=== PATIENT | female | born 1935 | race Caucasian/White ===

== ENCOUNTER 2017-08-01 17:15 | Emergency (ER) | payer BC, OTHER ==
[~2017-08-01] VITALS: Ht 152.4 cm; Wt 65.0 kg
[~2017-08-01 17:15] MED LIST: ACET-1311 PO; ASPCH81 PO; CHOL100010 PO; CRS10 PO; FRS/40 PO; MCLIN; METO50TA16 PO; OMEG10007 PO
[2017-08-01 17:22] VITALS: TEMP 36.7; Ht 152.4 cm; Wt 65.0 kg
[2017-08-01] MEDS ORDERED: CALC500C70 PO (18:00)
[2017-08-01] MEDS ORDERED: MULT-506 PO (18:00)
[2017-08-01] MEDS ORDERED: METO-217 PO (18:00)
[2017-08-01] MEDS ORDERED: ASPI81TA28 PO (18:00)
[2017-08-01] MEDS ORDERED: CHOL1000 PO (18:00)
--- NOTE | 2017-08-01 18:08 | EMERGENCY ROOM VISIT NOTE ---
ED Visit Note First contact with patient: 17:25 I have personally evaluated this patient examined her and reviewed the pertinent labs and data. I have discussed the case with Denae Rashid, the physician respiratory assistant and agree with the plan. Please refer to the PA note. This patient comes in after suffering a mechanical fall. She Landed on her left knee . She has pain or medial thigh. She has full range of motion the knee and is neurologically and neurovascularly intact . She's had no other complaints. X-rays do not show any fracture . She is mostly worried about her mechanical knee she feels good and like to go home and will be discharged home.
--- NOTE | 2017-08-01 18:37 | DIAGNOSTIC IMAGING REPORT ---
RIGHT KNEE 2 VIEWS HISTORY: fall/knee pain/history knee replacement COMPARISON: None. FINDINGS: No fracture or dislocation. No knee effusion. There is a right total knee arthroplasty. The hardware appears intact. Soft tissues are unremarkable. IMPRESSION: No fractures. Electronically signed by: Tyler Abreu M.D. 08/01/2017 6:36 PM Dictated Date/Time: 08/01/2017 6:32 PM
--- NOTE | 2017-08-01 18:41 | EMERGENCY ROOM VISIT NOTE ---
ED Visit Note First contact with patient: 17:25 CHIEF COMPLAINT: Right Knee injury HISTORY OF PRESENT ILLNESS: This 82-year-old female presents the ER with chief complaint of right knee pain/injury. The patient states today at approximately 1:30 PM she was outside in her slippers and slipped on the freshly plowed area and landed more towards her left side but struck the medial aspect of her right knee on the concrete. The patient states she was able to get up and walk without any difficulty. The patient denies any head injury or any pain on the left side of her body. The patient applied ice immediately. The patient is concerned because she had a knee replacement done many years ago on the knee. She denies any numbness and tingling in the lower extremity. REVIEW OF SYSTEMS: 6 system review was performed and was negative unless stated otherwise in history of present illness. PMH: PAST MEDICAL HISTORY: 1. Cardiac arrhythmias. 2. Hyperlipidemia. 3. Osteoporosis. 4. Osteoarthritis. 5. Chronic venous insufficiency. 6. Vitamin D deficiency. PAST SURGICAL HISTORY: 1. Right total knee replacement in the past. 2. Cholecystectomy. 3. Hysterectomy. 4. Oophorectomy. 5. Appendectomy as a child. 6. Cataract surgery. 7. Laminectomy. 8. Benign breast cysts removal x2. SOCIAL HISTORY: Patient is a . The patient denies any tobacco use but admits to occasional alcohol use. PHYSICAL EXAM: Vital Signs: Were reviewed Reviewed Nurse's notes. GEN.: 82-year -old white female appears in no acute distress. MENTAL STATUS: Alert, oriented , and cooperative. RIGHT KNEE: There is ecchymosis noted over the medial aspect of the knee. There is a vertical scar consistent with prior knee replacement surgery. She is tender to palpation over the medial aspect of the joint space. Lateral aspect is nontender. Full range of motion. No ligament instability noted. The skin is normal and intact. EMERGENCY DEPARTMENT COURSE: The patient was evaluated. The patient was offered pain medication but declined. X-ray of the right knee was ordered interpreted by myself and the radiologist as below. DIAGNOSTICS:RIGHT KNEE 2 VIEWS HISTORY: fall/knee pain/history knee replacement COMPARISON: None. FINDINGS: No fracture or dislocation. No knee effusion. There is a right total knee arthroplasty. The hardware appears intact. Soft tissues are unremarkable. IMPRESSION: No fractures. Electronically signed by: Tyler Abreu M.D. 08/01/2017 6:36 PM Dictated Date/Time: 08/01/2017 6:32 PM The patient was informed of the findings. The patient was independently evaluated by Dr. Sears who agreed with treatment plan. The patient was discharged home in stable condition. DIAGNOSIS: Right Knee contusion DISCHARGE INSTRUCTIONS: Tylenol or ibuprofen as needed for pain. Ice intermittently over the next 24 hours. Keep leg elevated whenever possible over the next 24 hours. Use walker to aid in ambulation until the knee is healed. If symptoms worsen, follow-up with your family doctor for reevaluation. Problem List PAST MEDICAL HISTORY: 1. Cardiac arrhythmias. 2. Hyperlipidemia. 3. Osteoporosis. 4. Osteoarthritis. 5. Chronic venous insufficiency. 6. Vitamin D deficiency. PAST SURGICAL HISTORY: 1. Right total knee replacement in the past. 2. Cholecystectomy. 3. Hysterectomy. 4. Oophorectomy. 5. Appendectomy as a child. 6. Cataract surgery. 7. Laminectomy. 8. Benign breast cysts removal x2. Current/Historical Medications Scheduled Acetaminophen (Tylenol), 650 MG PO Q4HR PRN Aspirin (Aspirin Ec), 81 MG PO QAM Calcium/Vitamin D (Os-Ethan 500 Plus D), 1 TAB PO QAM Cholecalciferol (Vitamin D), 1,000 INTER.UNIT PO QAM Cholecalciferol (Vitamin D3), 1 TAB PO QAM Metoprolol Succinate (Toprol Xl), 50 MG PO BID Multivitamin (Multivitamin), 1 TAB PO QAM Rosuvastatin Calcium (Crestor *), 10 MG PO QAM Scheduled PRN Furosemide (Lasix), 40 MG PO DAILY PRN for WATER RETENTION Allergies Coded Allergies: Sulfa Drugs (Unverified Allergy, Unknown, ., 08/01/17) Sulfamethoxazole w/Trimethoprim (Unverified Allergy, Unknown, ., 08/01/17) Vital Signs Date Time Temp Pulse Resp B/P (MAP) Pulse Ox O2 Delivery O2 Flow Rate FiO2 08/01/17 17:22 36.7 61 16 146/66 97 Room Air Departure Information Referrals No Doctor, Assigned (PCP) Patient Instructions [facility] [place]
[2017-08-01 18:43] VITALS: BP 128/64; PULSE 82; O2SAT 96
== END 2017-08-01 18:45 | disposition home or self-care (01) ==
LOC: C.EDB 17:17 → C.EDD 18:45
DX: S80.01XA Contusion of right knee, initial encounter (principal); W01.198A Fall on same level from slipping, tripping and stumbling with subsequent striking against other object, initial encounter; Z96.651 Presence of right artificial knee joint; M81.0 Age-related osteoporosis without current pathological fracture; E55.9 Vitamin D deficiency, unspecified; E78.5 Hyperlipidemia, unspecified; I87.2 Venous insufficiency (chronic) (peripheral); Z90.49 Acquired absence of other specified parts of digestive tract; Z90.710 Acquired absence of both cervix and uterus; Z90.89 Acquired absence of other organs; Z98.49 Cataract extraction status, unspecified eye; Z90.721 Acquired absence of ovaries, unilateral; Z98.890 Other specified postprocedural states; Z79.82 Long term (current) use of aspirin; Z79.899 Other long term (current) drug therapy

== ENCOUNTER 2018-09-26 11:59 | Inpatient (IN) ==
[2018-09-26] MEDS ORDERED: dilTIAZem HCl 5 MG/ML 5 ML VIAL IV STA (12:40)
[2018-09-26] MEDS ORDERED: dilTIAZem HCl 5 MG/ML 5 ML VIAL IV ONE (12:40)
[2018-09-26 12:51] LABS: Basophils # (auto) 0.01 K/uL (0-0.2); Basophils % (auto) 0.1 %; Eosinophils # (auto) 0.07 K/uL (0-0.5); Eosinophils % (auto) 0.5 %; Hematocrit (blood only) 44.2 % (37-47); Hemoglobin 14.4 g/dL (12.0-16.0); Immature Granulocytes # (auto) 0.05 K/uL (0.00-0.02); Immature Granulocytes % (auto) 0.3 %; Lymphocytes # (auto) 3.27 K/uL (1.2-3.4); Lymphocytes % (auto) 22.9 %; Mean Corpuscular Hgb Conc 32.6 g/dL (32-36); Mean Corpuscular Volume 93.4 fL (80-100); Mean Platelet Volume 10.1 fL (7.4-10.4); Monocytes # (auto) 1.38 K/uL (0.11-0.59); Monocytes % (auto) 9.7 %; Neutrophils # (auto) 9.51 K/uL (1.4-6.5); Neutrophils % (auto) 66.5 %; Platelet Count 313 K/uL (130-400); RDW Coefficient of Variation 14.3 % (11.5-14.5); RDW Standard Deviation 49.4 fL (36.4-46.3); Red Blood Count 4.73 M/uL (4.2-5.4); White Blood Count 14.29 K/uL (4.8-10.8)
--- NOTE | 2018-09-26 13:02 | XRay Report ---
XR chest 1V portable CLINICAL HISTORY: Chest Pain COMPARISON STUDY: No previous studies for comparison. FINDINGS: The bones soft tissues and hemidiaphragms are normal. The cardiomediastinal silhouette is n ormal. The lungs are clear. The pulmonary vasculature is normal. IMPRESSION: Negative chest. The above report was generated using voice recognition software. It may contain grammatical, syntax or spelling errors. Electronically signed by: Carter Rashid M.D. 09/26/2018 1:01 PM
[2018-09-26 13:08] LABS: BUN Creatinine Ratio 27.9 (10-20); Calcium 9.3 mg/dl (8.5-10.1); Creatinine Clr Calc Pharmacy 54.8 ml/min; Est GFR (African American) 92.9; Est GFR (Non-African American) 80.2; Magnesium 1.9 mg/dl (1.8-2.4)
[2018-09-26] MEDS ORDERED: dilTIAZem HCl 125 MG in DEXTROSE 5% 100 ML IV SCH (13:40)
--- NOTE | 2018-09-26 15:45 | History & Physical Report ---
Date of Service September 26, 2018 Assessment & Plan (1) Atrial fibrillation and flutter: This is a 83-year-old white female with significant past medical history of HLD , Hx of Afib (per patient, records indicate SVT), macular degeneration, osteoporosis, GERD who presents to [facility] ED secondary to chest discomfort and shortness of breath times 1 day. In ED patient noted to be in Atrial flutter, given IV diltiazem 10mg w/o relief and transitioned to diltiazem gtt Further work up notable for WBC 14k, DONOVAN with BUN 19 Cr 0.67, trop wnl, D-Dimer WNL, CXR normal On exam pt is irregularly, irregulary also with signs of R maxillary sinusitis Recently completed 2 week course of prednisone 40mg daily Lastly appears mildly dry -admit to telemetry -continue diltiazem gtt -Initiate Heparin gtt, pt has never been on anticoagulation in past (per Dr. Castillo if echo WNL patient would be good candidate for NOAC) -echocardiogram -IVF 75cc/hr x 1 L -repeat cbc, bmp in a.m. -treat R maxillary sinusitis (2) Right maxillary sinusitis: -amoxicillin 500mg po tid x 7 days -florastor for GI prophylaxis (3) DONOVAN (acute kidney injury): -BUN/ Cr 19 and 0.67 -mild pre renal azotemia -hydrate with IVF x 1 L and re evaluate bmp in a.m. (4) HLD (hyperlipidemia): -continue statin (5) GERD (gastroesophageal reflux disease): -continue PPI (6) Osteoporosis: -continue Vit D and Ca supplementation (7) Macular degeneration: -continue multivit + Lutein (8) Deep vein thrombosis (DVT) prophylaxis not tolerated by patient: -heparin gtt ordered Disposition: D/C to home when able Follow up: PCP Dr. Arroyo upon discharge Patient was seen in collaboration with Dr. Dominguez, please see addendum History of Present Illness Chief Complaint: Chest discomfort and SOB x 1 day. Primary Care Provider: Morgan Llamas MD This is a 83-year-old white female with significant past medical history of HLD , Hx of Afib (per patient, records indicate SVT), macular degeneration, osteoporosis, GERD who presents to [facility] ED secondary to chest discomfort and shortness of breath times 1 day. Patient states she was trying to go to sleep last night whenever she had chest discomfort, substernally , nonradiating, worsened with deep breathing. "[place] like all bones in my chest were breaking." Patient was able to get to sleep however when she awoke this morning symptoms persisted therefore she presented to ED. Upon arriving in ED it was noted that she was in atrial flutter versus atrial fibrillation. Patient states she has history of atrial fibrillation and currently takes metoprolol, but was never anticoagulated and is currently on aspirin only. With prior episodes she was able to feel palpitations, heart racing like sensation, this is absent during this visit. She denies any fever, chills, sweats, lightheadedness, dizziness, palpitations, nausea, vomiting, diarrhea, abdominal pain, hemoptysis, hematemesis, melena. Patient does note that she has some right maxillary sinus congestion with purulent drainage x 2 weeks, feeling of fullness, pain in right maxillary region. "I think I have a sinus infection." She also elicits approximately 2 weeks ago she lost complete hearing in her left ear and saw Dr. 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 While on prednisone it made her feel very jittery, weak in the legs, wobbly. "It was horrible while I was on prednisone I think it caused all this." Overall her appetite is good but she only drinks approximately 8 ounces of water daily. Daughter is at bedside. Allergies Allergy/AdvReac Type Severity Reaction Status Date / Time Bactrim Allergy Unknown . Unverified 08/01/17 17:48 Sulfa (Sulfonamide Allergy Unknown . Unverified 09/26/18 14:36 Antibiotics) sulfamethoxazole Allergy Unknown . Unverified 09/26/18 14:36 trimethoprim Allergy Unknown . Unverified 09/26/18 14:36 Home Medications Home Medications Medication Instructions Recorded Confirmed Type acetaminophen [Tylenol] 650 mg PO HS 09/26/18 09/26/18 History aspirin 81 mg PO QAM 09/26/18 09/26/18 History calcium carbonate-vitamin D3 1 tab PO QAM 09/26/18 09/26/18 History [Os-Ethan 500 + D3] docusate sodium [Colace] 100 mg PO QAM 09/26/18 09/26/18 History furosemide [Lasix] 40 mg PO DAILY PRN 09/26/18 09/26/18 History metoprolol succinate 50 mg PO BID 09/26/18 09/26/18 History [id number]-[id number]-[id number] 1 tab PO QAM 09/26/18 09/26/18 History rosuvastatin [Crestor] 10 mg PO Q2D 09/26/18 09/26/18 History Past Med/Surg History Medical History HLD (hyperlipidemia) GERD (gastroesophageal reflux disease) Macular degeneration Osteoporosis History of PSVT (paroxysmal supraventricular tachycardia) Surgical History History of appendectomy History of cholecystectomy History of total hysterectomy with bilateral salpingo-oophorectomy (BSO) History of lumbar laminectomy History of History of cataract extraction Family History Father , age 65 Heart attack Mother CAD (coronary artery disease) CHF (congestive heart failure) Sister Atrial fibrillation Social History marital status: / Current Living Situation: Alone current occupational status: retired other: walks with cane, still drives Feels Safe at Home: Yes Smoking Status: Former smoker Years Smoked: 4 Cigarettes per Day: 10 Hx Alcohol Use: No Hx Substance Use: No Preferred Language: Japanese Communication Ability: Effective Hearing Ability: Use of Hearing Aid Review of Systems All systems reviewed & are unremarkable except as noted in HPI & below Physical Exam 2 Vital Signs (Past 24 Hours): Last Vital Signs Temp 37.0 C 09/26/18 12:10 Pulse 119 H 09/26/18 14:45 Resp 17 09/26/18 14:45 BP 124/72 09/26/18 14:45 Pulse Ox 95 09/26/18 14:45 Physical Exam: Gen: WD/WN, elderly F, NAD, sitting up in bed, pleasant, conversing easily Head: Normocephalic, Atraumatic Eyes: Sclera normal, no conjunctival injection, PERRLA, EOMI ENT: Gross hearing intact with aides b/l, normal pharynx, mucous membranes moist , R maxillary sinus region +edema, erythema, +pressure, Nasal turbinates engorged and erythematous Neck: supple, no adenopathy, No JVD, no bruit, Resp: Clear to auscultation b/l, no wheeze, rales, rhonchi. Normal insp/exp effort, no accessory muscle use CV: irregular rate, irregular rhythm, no murmur, rub, gallop, or ectopy Abd: +BS x 4, soft, nontender, nondistended Musculoskeletal: moves extremities active rom x 4, strength intact, good rehabilitation center manager strength Extremities: trace edema bilaterally Skin: warm, moist, no rash, negative turgor, cap refill < 2sec Neuro: Alert and oriented x 3, speech normal, good mood/affect, cran nerve 2-12 intact grossly : deferred Results & Data Laboratory Results Short CBC 09/26/18 Range/Units 12:40 WBC 14.29 H (4.8-10.8) K/uL Hgb 14.4 (12.0-16.0) g/dL Hct 44.2 (37-47) % Plt Count 313 (130-400) K/uL BMP 09/26/18 12:40 Sodium 139 Potassium 4.0 Chloride 109 H Carbon Dioxide 26 BUN 19 H Creatinine 0.67 Glucose 106 H Calcium 9.3 Cardiac Enzymes 09/26/18 Range/Units 12:40 Troponin I < 0.015 (0-0.045) ng/ml Diagnostic Findings CXR: IMPRESSION: Negative chest. ECG Rate (beats per minute): 92 Rhythm: atrial flutter Code Status & VTE Plan Code Status Full Code VTE Prophylaxis Plan VTE Prophylaxis will be ordered: Yes Supervising Physician Co-Signing Physician Notes I have seen and examined the patient and agree with the assessment and plan as documented by my team's physician assistant engineer and would like to comment that Patient is an 83-year-old female who presents with atrial fibrillation/atrial flutter with rapid ventricular response Patient is responding to IV diltiazem and cardiology plans to stop diltiazem and transitioning to increased dose of metoprolol for heart rate control As per cardiology service, medical team will anticoagulation with IV heparin with anticipation of switching to Eliquis have discussed with Dr. Castillo of cardiology and he reports good cardiac function on echocardiogram. official report pending D-dimer is negative and therefor no laboratory evidence to indicate a pulmonary embolism blood culture ordered to rule out infection as course of the irregular heart rate. will start empirically on Amoxicillin in case of bacterial sinusitis _ (1) Osteoporosis Osteoporosis type: unspecified Presence of current pathological fracture: without current pathological fracture Qualified Code(s): M81.0 - Age-related osteoporosis without current pathological fracture (2) HLD (hyperlipidemia) Hyperlipidemia type: unspecified Qualified Code(s): E78.5 - Hyperlipidemia, unspecified (3) GERD (gastroesophageal reflux disease) Esophagitis presence: without esophagitis Qualified Code(s): K21.9 - Gastro- esophageal reflux disease without esophagitis (4) Macular degeneration Eye laterality: unspecified Macular degeneration type: unspecified type Qualified Code(s): H35.30 - Unspecified macular degeneration
[2018-09-26] MEDS ORDERED: POLYETHYLENE (MIRALAX) 17 GM PACK PO PRN (16:10)
[2018-09-26] MEDS ORDERED: SODIUM CHLORIDE 0.9% 1000ML 1,000 ML IV SCH (16:10)
[2018-09-26] MEDS ORDERED: ALUMINUM/MAGNESIUM SUSP 30 ML UDC PO PRN (16:10)
[2018-09-26] MEDS ORDERED: MAGNESIUM HYDROXIDE SUSP 30 ML UDC PO PRN (16:10)
[2018-09-26] MEDS ORDERED: ACETAMINOPHEN 325 MG TAB PO PRN (16:10)
[2018-09-26] MEDS ORDERED: ONDANSETRON INJ 2 MG/ML 2 ML VIAL IV PRN (16:10)
[2018-09-26] MEDS ORDERED: HEPARIN IV BOLUS 4,000 UNITS in SYRINGE 0 ML IV ONE (16:30)
--- NOTE | 2018-09-26 16:56 | Consultation Report ---
DATE OF CONSULTATION: 09/26/2018 REPORT TITLE: Cardiology Consultation. REFERRING: Silvana Quezada PA-C. PRIMARY CARE PHYSICIAN: Dr. Llamas. INDICATIONS: Atrial flutter with rapid ventricular response. HISTORY OF PRESENT ILLNESS: The patient is an 83-year-old female without prior history of cardiac disease other than paroxysmal atrial tachycardia per patient. Notes no history of TIA or stroke. Notes no history of renal or hepatic disease. Notes no history of prior myocardial infarction, angina or congestive heart failure. Underlying medical problems include a history of hypertension, osteoarthritis, and recent difficulties with acute hearing loss in her left ear, treated with high-dose prednisone. She presents now noting at least 1-2 days history of tachy palpitations, worse with exertion. Last night, the patient experienced symptoms of pleuritic pain and discomfort with deep inspiration. Noted no specific exertional chest pain. Noted no fevers, chills or productive cough. Notes no acute cord or edema with chronic trace edema of the lower extremities per patient. After more than 24 hours of symptoms, she presented to the Emergency Room for further evaluation where she was found to be in atrial fibrillation with elevated ventricular response rate. She was started on IV diltiazem in the Emergency Room and is referred now for further evaluation. On further review of systems, she notes no nausea, vomiting, diarrhea, melena, or hematochezia. Notes no bleeding difficulties. Has had fullness in the sinuses with possible sinus infection with maxillary drainage. She was not treated with antibiotics in association with loss of hearing in her left ear. She has been taking medications as usually prescribed, which include metoprolol succinate 50 mg twice per day. REVIEW OF SYSTEMS: As per HPI and otherwise negative. ALLERGIES: NOTABLE FOR BACTRIM. MEDICATIONS AT HOME: Aspirin 81 mg per day, calcium carbonate, vitamin D3, Os-Ethan 500 plus D 1 tablet q.a.m., Colace 100 mg q.a.m., furosemide 40 mg p.o. daily p.r.n. lower extremity edema, metoprolol succinate 50 mg b.i.d., multivitamin per day, rosuvastatin 10 mg p.o. daily. PAST SURGICAL HISTORY: Notable for prior appendectomy, cholecystectomy, hysterectomy with bilateral salpingo-oophorectomy, lumbar laminectomies, and cataract extractions. FAMILY HISTORY: Notable for twin sister with atrial fibrillation, coronary artery disease in both mother and father. Father suffered myocardial infarction at age 65, sudden . 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 She is a nonsmoker, nondrinker. She is very active about her home ____. PHYSICAL EXAMINATION: GENERAL: The patient is a pleasant, age-appropriate female. HEENT: There is flushing in plethora over the right maxillary sinus and her face. Pupils equal, round, and react to light and accommodation. Nares without discharge. Throat was clear. NECK: Thin. There is no distinct jugular venous distention. There are no carotid bruits or visible Tena waves. LUNGS: Predominantly clear to auscultation. No rhonchi, rale or wheeze. CARDIOVASCULAR: Regularly irregular. There is no audible murmur, gallop or rub with elevated heart rate noted. PMI is nondisplaced. ABDOMEN: Soft, nontender. There is no palpable hepatosplenomegaly. EXTREMITIES: Without cyanosis or clubbing. There is trace pedal edema. There is no palpable cord or Homans sign. NEUROLOGIC: The patient is alert and oriented, answering questions appropriately. DATA: White cell count is 14.2, hemoglobin is 14.4. Sodium is 139, potassium is 4.0, chloride is 109, bicarbonate is 26, BUN is 19, creatinine 0.67, glucose is 106. Troponin is less than 0.015. Chest x-ray reveals no infiltrate or edema. There is normal cardiac silhouette. EKG reveals atrial flutter with variable ventricular response. Initial tracing demonstrating atrial flutter with rapid ventricular response with 2:1 conduction, rate 150, associated nonspecific ST segment changes. Echocardiogram done on preliminary views demonstrate generally preserved LV function, no pericardial effusion. IMPRESSION: The patient is an 83-year-old female without specific history of prior atrial fibrillation but past history of short salvos of supraventricular tachycardia per records, history of hypertension, on beta serene therapy, who presents now with at least 24 hours' history of rapid heart rate and atrial flutter by EKG and examination. The patient has received already IV diltiazem with slowing of rate and has been ordered anticoagulation with IV heparin. RECOMMENDATIONS: We will simplify regimen as patient is already on beta serene at home. We will increase the beta serene dosing. Discontinue IV diltiazem. She is completely asymptomatic on exam. I will continue anticoagulation with IV heparin with anticipation of switching to Eliquis given the duration of atrial flutter of at least 24, possibly 48 hours. We will likely plan on anticoagulation and rate control as initial approach unless the patient spontaneously converts on her own. If the patient's rates are not under control or she becomes more symptomatic, would consider accelerated approach with a JOHNATHAN-guided cardioversion. She is agreeable to plan, discussed possible precipitants. D-dimer is pending. Given pleuritic pain, considerations will be made for evaluation if necessary for pulmonary emboli. She will be treated for her sinus infection and echocardiogram will be completed as full study. Cardiology will continue to follow the patient closely in the hospital. Echocardiogram will be completed. MUA
[2018-09-26] MEDS: HEPARIN SODIUM/DEXTROSE 25,000 UNITS/500 ML BAG IV SCH (17:38)
[2018-09-26] MEDS: dilTIAZem HCl 125 MG in DEXTROSE 5% 100 ML IV SCH ×2 (17:39→21:39)
--- NOTE | 2018-09-26 17:45 | Emergency Department Note ---
Entered by Abi Garcia acting as a scribe for History of Present Illness General Chief complaint: Cardiac Assessment Stated complaint: PAIN ON BREATHING,CHEST PAIN Source: patient Mode of arrival: ambulatory Limitations: no limitations History of Present Illness Provider complaint: Chest pain Onset (ago): day(s) (last night after [id number]) Location: chest Radiation: neck Pain Consistency: + other (worsening) Maximum Pain Intensity: 3 Quality: + other (pain) Relieved By: + none Associated symptoms: + shortness of breath and + other (Additional symptoms: heart racing, right sinus congestion. Denies: diarrhea.); no diaphoresis, no fever/chills and no nausea/vomiting The patient is an 83 year old female with a history of intermittent atrial fibrillation who presents to the Emergency Room with complaints of worsening chest pain starting last night after [id number]. The patient reports that she was able to sleep last night but that she has been awake since 0430 today. She states that her chest pain has now subsided, but at its worst, she felt pain up to her neck and her "bones were sore." She also complains of shortness of breath , occasional heart racing, and right sinus congestion, but denies any fevers, vomiting, and diarrhea. 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 The patient reports that she takes a low dose aspirin daily and no blood thinners. Home Medications Home Medications Medication Instructions Recorded Confirmed Type acetaminophen [Tylenol] 650 mg PO HS 09/26/18 09/26/18 History aspirin 81 mg PO QAM 09/26/18 09/26/18 History calcium carbonate-vitamin D3 1 tab PO QAM 09/26/18 09/26/18 History [Os-Ethan 500 + D3] docusate sodium [Colace] 100 mg PO QAM 09/26/18 09/26/18 History furosemide [Lasix] 40 mg PO DAILY PRN 09/26/18 09/26/18 History metoprolol succinate 50 mg PO BID 09/26/18 09/26/18 History [id number] 1 tab PO QAM 09/26/18 09/26/18 History rosuvastatin [Crestor] 10 mg PO Q2D 09/26/18 09/26/18 History Allergies Allergy/AdvReac Type Severity Reaction Status Date / Time Bactrim Allergy Unknown . Unverified 08/01/17 17:48 Sulfa (Sulfonamide Allergy Unknown . Unverified 09/26/18 14:36 Antibiotics) sulfamethoxazole Allergy Unknown . Unverified 09/26/18 14:36 trimethoprim Allergy Unknown . Unverified 09/26/18 14:36 Past Med/Surg History Medical History HLD (hyperlipidemia) GERD (gastroesophageal reflux disease) Macular degeneration Osteoporosis History of PSVT (paroxysmal supraventricular tachycardia) Surgical History History of appendectomy History of cholecystectomy History of total hysterectomy with bilateral salpingo-oophorectomy (BSO) History of lumbar laminectomy History of History of cataract extraction Family History Father , age 65 Heart attack Mother CAD (coronary artery disease) CHF (congestive heart failure) Sister Atrial fibrillation Social History marital status: / Current Living Situation: Alone current occupational status: retired other: walks with cane, still drives Feels Safe at Home: Yes Smoking Status: Former smoker Years Smoked: 4 Cigarettes per Day: 10 Hx Alcohol Use: No Hx Substance Use: No Preferred Language: Finnish Communication Ability: Effective Hearing Ability: Use of Hearing Aid Review of Systems See HPI for pertinent positives & negatives. and A total of 10 systems reviewed and were otherwise negative Physical Exam Vital Signs Vital Signs - 24 hr 09/26/18 12:10 09/26/18 12:43 09/26/18 13:15 Temperature 37.0 C Temperature Source Oral Sepsis Recent Fever Within 48 Hours No Sepsis New/Unexplained Change in Mental Status No Sepsis Action Taken by Nursing No Action Required Pulse Rate 110 H 153 H Pulse Rate [Apical] 153 H 120 H Pulse Rhythm Regular Irregular Pulse Rhythm [Apical] Irregular Regular Pulse Strength Normal Pulse Strength [Apical] Normal Normal Respiratory Rate 20 20 18 Respiratory Effort / Characteristics Non-Labored Non-Labored Spontaneous Non-Labored Spontaneous Respiratory Depth Normal Normal Normal Respiratory Pattern Regular Regular Regular Blood Pressure 142/81 H Blood Pressure [Right Arm] 123/87 137/76 Blood Pressure Mean 101 Blood Pressure Mean [Right Arm] 99 96 Blood Pressure Position Sitting Blood Pressure Position [Right Arm] Lying Lying Pulse Oximetry 98 96 97 Oxygen Delivery Method Room Air Room Air Room Air 09/26/18 13:43 09/26/18 13:45 09/26/18 14:00 Temperature Temperature Source Sepsis Recent Fever Within 48 Hours Sepsis New/Unexplained Change in Mental Status Sepsis Action Taken by Nursing Pulse Rate 118 H 115 H Pulse Rate [Apical] 113 H Pulse Rhythm Pulse Rhythm [Apical] Irregular Pulse Strength Pulse Strength [Apical] Normal Respiratory Rate 18 21 17 Respiratory Effort / Characteristics Non-Labored Spontaneous Respiratory Depth Normal Respiratory Pattern Regular Blood Pressure 132/90 111/80 Blood Pressure [Right Arm] 124/87 Blood Pressure Mean 104 90 Blood Pressure Mean [Right Arm] 99 Blood Pressure Position Blood Pressure Position [Right Arm] Lying Pulse Oximetry 95 95 96 Oxygen Delivery Method Room Air Room Air Room Air 09/26/18 14:09 09/26/18 14:15 09/26/18 14:16 Temperature Temperature Source Sepsis Recent Fever Within 48 Hours Sepsis New/Unexplained Change in Mental Status Sepsis Action Taken by Nursing Pulse Rate 140 H 116 H 122 H Pulse Rate [Apical] Pulse Rhythm Pulse Rhythm [Apical] Pulse Strength Pulse Strength [Apical] Respiratory Rate 26 H 33 H 27 H Respiratory Effort / Characteristics Respiratory Depth Respiratory Pattern Blood Pressure 146/94 H 129/91 Blood Pressure [Right Arm] Blood Pressure Mean 111 103 Blood Pressure Mean [Right Arm] Blood Pressure Position Blood Pressure Position [Right Arm] Pulse Oximetry 98 97 97 Oxygen Delivery Method Room Air Room Air Room Air 09/26/18 14:30 09/26/18 14:45 09/26/18 15:38 Temperature Temperature Source Sepsis Recent Fever Within 48 Hours Sepsis New/Unexplained Change in Mental Status Sepsis Action Taken by Nursing Pulse Rate 119 H 119 H 120 H Pulse Rate [Apical] Pulse Rhythm Pulse Rhythm [Apical] Pulse Strength Pulse Strength [Apical] Respiratory Rate 18 17 19 Respiratory Effort / Characteristics Respiratory Depth Respiratory Pattern Blood Pressure 144/78 H 124/72 123/88 Blood Pressure [Right Arm] Blood Pressure Mean 100 89 Blood Pressure Mean [Right Arm] Blood Pressure Position Blood Pressure Position [Right Arm] Pulse Oximetry 95 95 96 Oxygen Delivery Method Room Air Room Air Room Air 02/08/19 16:10 Temperature 37.2 C Temperature Source Oral Sepsis Recent Fever Within 48 Hours Sepsis New/Unexplained Change in Mental Status Sepsis Action Taken by Nursing Pulse Rate Pulse Rate [Apical] 84 Pulse Rhythm Pulse Rhythm [Apical] Pulse Strength Pulse Strength [Apical] Respiratory Rate 20 Respiratory Effort / Characteristics Respiratory Depth Respiratory Pattern Blood Pressure Blood Pressure [Right Arm] 141/81 H Blood Pressure Mean Blood Pressure Mean [Right Arm] 101 Blood Pressure Position Blood Pressure Position [Right Arm] Lying Pulse Oximetry 97 Oxygen Delivery Method Room Air Constitutional: Vital signs reviewed. Eyes: Pupils are equal round reactive to light. Conjunctiva are noninjected. ENT: Pharynx is clear without erythema or exudate. Mucous membranes are moist. Neck supple without meningeal signs. Respiratory: Clear to auscultation bilaterally. Breath sounds are equal bilaterally. Cardiovascular: Tachycardic rate and irregularly irregular rhythm. GI: Soft, nondistended and nontender. Bowel sounds are present. Musculoskeletal: No peripheral edema. No lower extremity tenderness. Integumentary: No cyanosis. Neurological: The patient is awake and alert. No focal deficits. Psychiatric: Normal affect. Course 1235: Past medical records reviewed. The patient was evaluated in room C11B, and a complete history and physical examination were performed. 1247: I checked on the patient and her heart rate is now 108 with PVCs. Her blood pressure is stable. 1334: I reevaluated the patient and she is no longer having chest pain. POC troponin failed so we will do a lab troponin. The patient now has a heart rate of 120-130. A cardizem drip was ordered. 1414: I checked on the patient and her heart rate is in the 120s. The cardizem drip is running, and the patient reports no chest pain. 1433: I reviewed the patient's case with Lola Badillo PA-C. Silvana will come to evaluate the patient. 1530: I checked on the patient and her heart rate is in the 90s-100. She will be further managed by Lola. Consultations Consultation #1: I reviewed the patient's case with Lola Badillo PA-C. Silvana will come to evaluate the patient. Time: 14:33 Administered Medications Discontinued Medications Diltiazem HCl (Cardizem) Confirm Administered Dose 25 mg IV .STK-MED ONE Stop: 09/26/18 12:41 Last Admin: 09/26/18 12:43 Dose: Not Given Diltiazem HCl (Cardizem) 10 mg IV NOW STA Stop: 09/26/18 12:41 Last Admin: 09/26/18 12:43 Dose: 10 mg Diltiazem HCl 125 mg/ Dextrose 125 mls @ 15 mls/hr IV .[id number] [facility]; Protocol Stop: 10/26/18 13:39 Last Titration: 09/26/18 14:53 Dose: 15 mg/hr, 15 mls/hr Admin: 09/26/18 13:44 Dose: 10 mg/hr, 10 mls/hr Medical Decision Making Differential Diagnosis Differential diagnosis includes: unstable angina, MD, pleurisy, GERD, dysthymia. Medical Records Attestation: I reviewed the patient's medical records. Home Medications Current Medication List: was personally reviewed by me Laboratory Data Attestation: I reviewed the patient's lab results. Result diagrams: 09/26/18 12:40 09/26/18 12:40 Lab Results 09/26/18 09/26/18 09/26/18 Range/Units 12:40 12:40 12:40 WBC 14.29 H (4.8-10.8) K/uL RBC 4.73 (4.2-5.4) M/uL Hgb 14.4 (12.0-16.0) g/dL Hct 44.2 (37-47) % MCV 93.4 (80-100) fL MCH 30.4 (25-34) pg MCHC 32.6 (32-36) g/dL RDW Std Deviation 49.4 H (36.4-46.3) fL RDW Coeff of Tere 14.3 (11.5-14.5) % Plt Count 313 (130-400) K/uL MPV 10.1 (7.4-10.4) fL Immature Gran % (Auto) 0.3 % Neut % (Auto) 66.5 % Lymph % (Auto) 22.9 % [place] % (Auto) 9.7 % Eos % (Auto) 0.5 % Baso % (Auto) 0.1 % Immature Gran # (Auto) 0.05 H (0.00-0.02) K/uL Neut # (Auto) 9.51 H (1.4-6.5) K/uL Lymph # (Auto) 3.27 (1.2-3.4) K/uL [place] # (Auto) 1.38 H (0.11-0.59) K/uL Eos # (Auto) 0.07 (0-0.5) K/uL Baso # (Auto) 0.01 (0-0.2) K/uL D-Dimer (0-500) ug/L FEU Sodium 139 (136-145) mmol/L Potassium 4.0 (3.5-5.1) mmol/L Chloride 109 H (98-107) mmol/L Carbon Dioxide 26 (21-32) mmol/L Anion Gap 4.0 (3-11) BUN 19 H (7-18) mg/dl Creatinine 0.67 (0.6-1.2) mg/dl Est Cr Clr Drug Dosing 54.8 ml/min Est GFR ( Amer) 92.9 Est GFR (Non-Af Amer) 80.2 BUN/Creatinine Ratio 27.9 H (10-20) Glucose 106 H (70-99) mg/dl Calcium 9.3 (8.5-10.1) mg/dl Magnesium 1.9 (1.8-2.4) mg/dl Troponin I < 0.015 (0-0.045) ng/ml TSH (0.300-4.500) uIu/ml 09/26/18 09/26/18 Range/Units 12:40 12:40 WBC (4.8-10.8) K/uL RBC (4.2-5.4) M/uL Hgb (12.0-16.0) g/dL Hct (37-47) % MCV (80-100) fL MCH (25-34) pg MCHC (32-36) g/dL RDW Std Deviation (36.4-46.3) fL RDW Coeff of Tere (11.5-14.5) % Plt Count (130-400) K/uL MPV (7.4-10.4) fL Immature Gran % (Auto) % Neut % (Auto) % Lymph % (Auto) % [place] % (Auto) % Eos % (Auto) % Baso % (Auto) % Immature Gran # (Auto) (0.00-0.02) K/uL Neut # (Auto) (1.4-6.5) K/uL Lymph # (Auto) (1.2-3.4) K/uL [place] # (Auto) (0.11-0.59) K/uL Eos # (Auto) (0-0.5) K/uL Baso # (Auto) (0-0.2) K/uL D-Dimer 420 (0-500) ug/L FEU Sodium (136-145) mmol/L Potassium (3.5-5.1) mmol/L Chloride (98-107) mmol/L Carbon Dioxide (21-32) mmol/L Anion Gap (3-11) BUN (7-18) mg/dl Creatinine (0.6-1.2) mg/dl Est Cr Clr Drug Dosing ml/min Est GFR ( Amer) Est GFR (Non-Af Amer) BUN/Creatinine Ratio (10-20) Glucose (70-99) mg/dl Calcium (8.5-10.1) mg/dl Magnesium (1.8-2.4) mg/dl Troponin I (0-0.045) ng/ml TSH 1.070 (0.300-4.500) uIu/ml Imaging Data Radiologist's Impression: Radiology results as stated below per my review and the radiologist's interpretation: XR chest 1V portable CLINICAL HISTORY: Chest Pain COMPARISON STUDY: No previous studies for comparison. FINDINGS: The bones soft tissues and hemidiaphragms are normal. The cardiomediastinal silhouette is normal. The lungs are clear. The pulmonary vasculature is normal. IMPRESSION: Negative chest. The above report was generated using voice recognition software. It may contain grammatical, syntax or spelling errors. Electronically signed by: Carter Rashid M.D. 09/26/2018 1:01 PM ECG Data Attestation: I personally reviewed and interpreted this ECG as follows: Indication: chest pain Rate (beats per minute): 150 Rhythm: atrial fibrillation Findings: + other (QRS is 78 ms) and + nonspecific-ST abn (diffusely) Blood Pressure Blood Pressure Findings: Normal blood pressure Blood Pressure Disposition: Referred to patients primary care provider Additional Comments: Repeat EKG findings: Atrial flutter, 92 BPM, PVC, no ST elevation. MDM Narrative I did perform a limited focused review of portions of the patient's old chart on the electronic medical record. The patient has had no recent pertinent visits to this hospital. I did evaluate the patient as noted above. The patient is presenting with chest pain which is now resolved. IV access was established. The patient was placed on a continuous groundwater monitoring technician. I did order and personally review the patient's 12-lead EKG and chest x-ray as described above. She has atrial fibrillation with RVR. I did treat her with IV Cardizem. Her heart rate did decrease and a repeat twelve-lead EKG was obtained. She has no acute ischemic changes. She has a prior history of atrial fibrillation but is not on anticoagulants. She states she is not usually in atrial fibrillation. Her chest x-ray is unremarkable. I did order and review the patient's blood work as noted in the electronic medical record. Electrolytes and troponin are unremarkable. Her white blood cell count is elevated but she is on prednisone currently. On reassessment the patient's heart rate is increased. She has back in the 130s and so I did start a Cardizem drip. I did recommend hospitalization. I did discuss case with the hospitalist and child support case officer. On reassessment her heart rate is well controlled on the Cardizem drip and blood pressure stable. Impression & Plan Atrial fibrillation with RVR, Acute chest pain Critical Care Time I have personally spent 35 minutes of critical care time in the direct management of this patient. This includes bedside care, interpretation of diagnostic studies, and testing, discussion with consultants, patient, and family members, and other required patient management activities. This 35 minutes is in excess of all separately billable procedures. Critical Care Time: Yes Total Critical Care Time: 35 Discharge Plan Visit Data *Final* Discharge Date/Time: 09/26/18 15:38 Chief Complaint: Cardiac Assessment Stated Complaint: PAIN ON BREATHING,CHEST PAIN ED Provider: Pedro Thakkar Discharge Problem: Atrial fibrillation with RVR, Acute chest pain Patient Disposition: Admitted As Inpatient Discharge Instructions Interventions: ED Discharge Assessment Last Done: 09/26/18 15:38 The scribe's documentation has been prepared under my direction and personally reviewed by me in its entirety. I confirm that the note above accurately reflects all work, treatment, procedures, and medical decision making performed by me.
[2018-09-26] MEDS: METOPROLOL SUCC 25MG EXT REL TAB PO SCH (17:54)
[2018-09-26] MEDS: AMOXICILLIN 500 MG CAP PO SCH (21:38)
[2018-09-26] MEDS: ACETAMINOPHEN 325 MG TAB PO SCH (21:38)
[2018-09-27 01:07] LABS: Partial Thromboplastin Ratio 3.3
[2018-09-27 01:09] LABS: Partial Thromboplastin Time 86.4 Seconds (21.0-31.0)
[2018-09-27] MEDS: HEPARIN SODIUM/DEXTROSE 25,000 UNITS/500 ML BAG IV SCH (01:46)
[2018-09-27] MEDS: dilTIAZem HCl 125 MG in DEXTROSE 5% 100 ML IV SCH (05:16)
[2018-09-27 08:04] LABS: Mean Corpuscular Hgb Conc 31.7 g/dL (32-36); Mean Corpuscular Volume 93.4 fL (80-100); Platelet Count 262 K/uL (130-400); RDW Coefficient of Variation 14.6 % (11.5-14.5); Red Blood Count 4.39 M/uL (4.2-5.4); White Blood Count 9.59 K/uL (4.8-10.8)
[2018-09-27] MEDS: CALCIUM 600MG + VIT D 400 IU TAB PO SCH (08:18)
[2018-09-27] MEDS: CEROVITE ADV FORMULA TAB PO SCH (08:18)
[2018-09-27] MEDS: DOCUSATE SODIUM 100 MG CAP PO SCH (08:18)
[2018-09-27] MEDS: AMOXICILLIN 500 MG CAP PO SCH ×3 (08:18→20:40)
[2018-09-27] MEDS: SACCHAROMYCES BOULARDII 250 MG CAP PO SCH (08:19)
[2018-09-27] MEDS: METOPROLOL SUCC 25MG EXT REL TAB PO SCH ×2 (08:20→17:43)
[2018-09-27 08:24] LABS: Partial Thromboplastin Ratio 2.9
[2018-09-27 08:39] LABS: BUN Creatinine Ratio 21.5 (10-20); Calcium 8.8 mg/dl (8.5-10.1); Creatinine Clr Calc Pharmacy 58.3 ml/min; Est GFR (African American) 94.8; Est GFR (Non-African American) 81.8; Potassium 3.7 mmol/L (3.5-5.1)
[2018-09-27 08:43] LABS: Partial Thromboplastin Time 76.3 Seconds (21.0-31.0)
--- NOTE | 2018-09-27 11:25 | Cardiology Progress Note ---
Date of Service September 27, 2018 Assessment & Plan (1) Atrial flutter with rapid ventricular response: asymptomatic rates improved on cardizem gtt but still on 10mg/hr noted to be a good candidate for Eliquis discussed rate vs. rhythm control and again she's elected for rate control will give po cardizem now and attempt to titrate gtt off cont IV heparin for now if rates improved in AM will start po Eliquis and d/c to home cont to monitor on tele Subjective Pt seen and examined, resting comfortably in bed. States that she feels better than before admission. She now realizes that she was a little lightheaded and had some throat discomfort. Denies cp, sob, palpitations, lightheadedness or dizziness. tele reviewed: atrial flutter with variable rate response, 70's-80's Review of Systems All systems reviewed & are unremarkable except as noted in HPI & below Physical Exam 2 Vital Signs (Past 24 Hours): Last Vital Signs Temp 36.7 C 09/27/18 11:00 Pulse 66 09/27/18 11:00 Resp 19 09/27/18 11:00 BP 100/51 L 09/27/18 11:00 Pulse Ox 96 09/27/18 11:00 Physical Exam: General: Awake, alert and oriented x 3. No acute distress. HEENT: Normocephalic, atraumatic. Pupils equal, round and reactive to light and accommodation. Extraocular muscles are intact. Anicteric sclera. Moist mucous membranes. Neck: No JVD. No bruit. Cardiovascular: irregularly irregular, unable to appreciate murmur, rub or gallop. Pulmonary: Clear to auscultation bilaterally. No rales, rhonchi, or wheezing. Abdomen: Bowel sounds x 4, soft. No rebound, guarding or tenderness. No organomegaly. Extremities: No clubbing, cyanosis or edema. +2 pedal pulses bilaterally. Skin: Warm and dry.
[2018-09-27] MEDS: dilTIAZem HCL 180 MG CAPCR PO SCH (12:34)
[2018-09-27 15:01] LABS: Partial Thromboplastin Ratio 2.1
[2018-09-27 15:09] LABS: Partial Thromboplastin Time 53.7 Seconds (21.0-31.0)
[2018-09-27] MEDS: NYSTATIN POWDER 15GM BTL EXT SCH (17:57)
[2018-09-27] MEDS ORDERED: HEPARIN SODIUM/DEXTROSE 25,000 UNITS/500 ML BAG IV SCH (18:07)
--- NOTE | 2018-09-27 18:55 | Hospitalist Progress Note ---
Date of Service September 27, 2018 Assessment & Plan (1) Atrial fibrillation and flutter: This is a 83-year-old white female with significant past medical history of HLD, Hx of Afib (per patient, records indicate SVT), macular degeneration, osteoporosis, GERD who presents to [facility] ED secondary to chest discomfort and shortness of breath times 1 day. In ED patient noted to be in Atrial flutter, given IV diltiazem 10mg w/o relief and transitioned to diltiazem gtt Further work up notable for WBC 14k, DONOVAN with BUN 19 Cr 0.67, trop wnl, D-Dimer WNL, CXR normal Atrial flutter with rapid ventricular response / Anticoagulated on anticoagulation therapy heart rates controlled after cardiazem drip as inpatient from admission to now since 09/27/18 is off diltizem drip and on oral cardiazem will continue heparin drip as started on admission day cardiology service may transition anticoagulation to Eliquis starting 09/28/18 hospitalist have asked trimming caser to look into Eliquis pricing for the patient facility service manager reports Cost at her pharmacy is 47 dollars for 30 day supply of 5mg BID Eliquis (2) Right maxillary sinusitis: -continue amoxicillin 500mg po tid for total 7 days -florastor for GI prophylaxis (3) DONOVAN (acute kidney injury): DONOVAN resolved (4) HLD (hyperlipidemia): -continue statin (5) GERD (gastroesophageal reflux disease): -continue PPI (6) Osteoporosis: -continue Vit D and Ca supplementation (7) Macular degeneration: -continue multivit + Lutein (8) Deep vein thrombosis (DVT) prophylaxis not tolerated by patient: heparin drip Follow up: PCP Dr. Arroyo upon discharge Subjective Patient off diltiazem drip. continues to be on heparin drip heart is in atrial flutter. heart rate controlled denies palpitations, denies chest pain. denies shortness of breath, denies abdominal pain, denies vomiting Physical Exam 2 Vital Signs (Past 24 Hours): Last Vital Signs Temp 37.2 C 09/27/18 15:50 Pulse 80 09/27/18 17:42 Resp 18 09/27/18 15:50 BP 110/68 09/27/18 17:42 Pulse Ox 94 02/09/19 15:50 Constitutional: WD/WN, vitals as above Eyes: PERRL, conjunctivae normal, anicteric sclerae EOM intact bilaterally ENMT: external ear and nose normal, oropharynx normal Neck: trachea midline, no thyromegaly Respiratory: normal respiratory effort, lungs clear to auscultation Cardiovascular: Rate/Rhythm: regular rate (heart is in atrial flutter. heart rate controlled) Gastrointestinal (Abdomen): normal bowel sounds, soft, nontender, no hepatosplenomegaly Musculoskeletal: Head/Neck/Chest: normocephalic and head atraumatic Neurologic: PERRL, EOMI, accommodation nl, no face palsy, no dysarthria CN' s II-XI intact bilaterally Psychiatric: A+Ox3, euthymic affect _ (1) Osteoporosis Encounter type: Fracture healing: Osteoporosis type: unspecified Presence of current pathological fracture: without current pathological fracture Qualified Code(s): M81.0 - Age-related osteoporosis without current pathological fracture (2) HLD (hyperlipidemia) Hyperlipidemia type: unspecified Qualified Code(s): E78.5 - Hyperlipidemia, unspecified (3) GERD (gastroesophageal reflux disease) Esophagitis presence: without esophagitis Qualified Code(s): K21.9 - Gastro- esophageal reflux disease without esophagitis (4) Macular degeneration Exudative macular degeneration stage: Eye laterality: unspecified Macular degeneration type: unspecified type Nonexudative macular degeneration stage: Qualified Code(s): H35.30 - Unspecified macular degeneration
[2018-09-27] MEDS ORDERED: HEPARIN 25000 UNIT/500 ML D5W IV ONE (19:20)
[2018-09-27] MEDS: ACETAMINOPHEN 325 MG TAB PO SCH (20:40)
[2018-09-27] MEDS ORDERED: ROSUVASTATIN CALCIUM 10 MG TAB PO SCH (21:00)
[2018-09-28 06:18] LABS: Partial Thromboplastin Ratio 2.1
[2018-09-28 06:23] LABS: Partial Thromboplastin Time 55.8 Seconds (21.0-31.0)
[2018-09-28] MEDS: METOPROLOL SUCC 25MG EXT REL TAB PO SCH (09:07)
[2018-09-28] MEDS: DOCUSATE SODIUM 100 MG CAP PO SCH (09:07)
[2018-09-28] MEDS: CALCIUM 600MG + VIT D 400 IU TAB PO SCH (09:07)
[2018-09-28] MEDS: CEROVITE ADV FORMULA TAB PO SCH (09:07)
[2018-09-28] MEDS: SACCHAROMYCES BOULARDII 250 MG CAP PO SCH (09:07)
[2018-09-28] MEDS: dilTIAZem HCL 180 MG CAPCR PO SCH (09:08)
[2018-09-28] MEDS: AMOXICILLIN 500 MG CAP PO SCH (09:08)
[2018-09-28] MEDS: NYSTATIN POWDER 15GM BTL EXT SCH (09:09)
[2018-09-28] MEDS ORDERED: APIXABAN 5 MG TABLET PO SCH (09:30)
--- NOTE | 2018-09-28 11:02 | Cardiology Progress Note ---
Date of Service September 28, 2018 Assessment & Plan (1) Atrial flutter with rapid ventricular response: asymptomatic rates now well controlled on PO cardizem I held the heparin this AM and started Eliquis pathophysiology and restrictions once again reviewed will follow rate control strategy for now will need cardiac f/u in 1 month at the [place] office my office will call to arrange ok to d/c to home Subjective Pt seen and examined, states that she feels great. Kartik cp, sob, palpitations, lightheadedness or dizziness. Tele reviewed: atrial fib/flutter in the s. Review of Systems All systems reviewed & are unremarkable except as noted in HPI & below Physical Exam 2 Vital Signs (Past 24 Hours): Last Vital Signs Temp 36.6 C 09/28/18 05:43 Pulse 88 09/28/18 05:43 Resp 17 09/28/18 05:43 BP 117/81 09/28/18 05:43 Pulse Ox 98 09/28/18 05:43 Physical Exam: General: Awake, alert and oriented x 3. No acute distress. HEENT: Normocephalic, atraumatic. Pupils equal, round and reactive to light and accommodation. Extraocular muscles are intact. Anicteric sclera. Moist mucous membranes. Neck: No JVD. No bruit. Cardiovascular: irregularly irregular, unable to appreciate murmur, rub or gallop. Pulmonary: Clear to auscultation bilaterally. No rales, rhonchi, or wheezing. Abdomen: Bowel sounds x 4, soft. No rebound, guarding or tenderness. No organomegaly. Extremities: No clubbing, cyanosis or edema. +2 pedal pulses bilaterally. Skin: Warm and dry.
--- NOTE | 2018-09-28 13:16 | Hospitalist Progress Note ---
Date of Service September 28, 2018 Assessment & Plan (1) Atrial fibrillation and flutter: This is a 83-year-old white female with significant past medical history of HLD, Hx of Afib (per patient, records indicate SVT), macular degeneration, osteoporosis, GERD who presents to [facility] ED secondary to chest discomfort and shortness of breath times 1 day. In ED patient noted to be in Atrial flutter, given IV diltiazem 10mg w/o relief and transitioned to diltiazem gtt Further work up notable for WBC 14k, DONOVAN with BUN 19 Cr 0.67, trop wnl, D-Dimer WNL, CXR normal Atrial flutter with rapid ventricular response / Anticoagulated on anticoagulation therapy heart rates controlled after cardiazem drip as inpatient from admission to on oral cardiazem and oral metoprolol patient off heparin drip and transitioned to Eliquis by cardiology service as of 09/28/18 Discharge Prescription: apixaban (Eliquis) 5 mg twice a day every day Patient should stop aspirin while on Eliquis Diltiazem 180 mg daily metoprolol succinate as 75 twice a day every day (2) Right maxillary sinusitis: -continue amoxicillin 500mg po tid Discharge Prescription: Patient should take amoxicillin three times a day for 5 more days (3) DONOVAN (acute kidney injury): DONOVAN resolved (4) HLD (hyperlipidemia): -continue statin (5) GERD (gastroesophageal reflux disease): -continue PPI (6) Osteoporosis: -continue Vit D and Ca supplementation (7) Macular degeneration: -continue multivit + Lutein (8) Deep vein thrombosis (DVT) prophylaxis not tolerated by patient: anticoagulated on medication Main Discharge diagnosis Atrial flutter with rapid ventricular response, Right maxillary sinusitis, anticoagulated on anticoagulation therapy Discharge Instructions Patient should take amoxicillin three times a day for 5 more days Patient should take apixaban (Eliquis) 5 mg twice a day every day Patient should stop aspirin while on Eliquis Patient should take Diltiazem 180 mg daily Patient should take metoprolol succinate as 75 twice a day every day Follow up with 10/03/2018 10:00 AM Provider Morgan Llamas MD Department Internal Medicine [facility] 10/07/2018 1:00 PM Provider Issa Fairchild Jr., DO Department Cardiology, [facility] Subjective heart is in atrial flutter. heart rate controlled denies palpitations, denies chest pain. denies shortness of breath, denies abdominal pain, denies vomiting patient off heparin drip and transitioned to Eliquis by cardiology service Physical Exam 2 Vital Signs (Past 24 Hours): Last Vital Signs Temp 37.0 C 09/28/18 12:57 Pulse 96 H 09/28/18 12:57 Resp 18 09/28/18 12:57 BP 117/79 09/28/18 12:57 Pulse Ox 94 09/28/18 12:57 Constitutional: WD/WN, vitals as above Eyes: PERRL, conjunctivae normal, anicteric sclerae EOM intact bilaterally ENMT: external ear and nose normal, oropharynx normal Neck: trachea midline, no thyromegaly Respiratory: normal respiratory effort, lungs clear to auscultation Cardiovascular: Rate/Rhythm: regular rate (heart is in atrial flutter. heart rate controlled) Gastrointestinal (Abdomen): normal bowel sounds, soft, nontender, no hepatosplenomegaly Musculoskeletal: Head/Neck/Chest: normocephalic and head atraumatic Neurologic: PERRL, EOMI, accommodation nl, no face palsy, no dysarthria CN' s II-XI intact bilaterally Psychiatric: A+Ox3, euthymic affect _ (1) Osteoporosis Encounter type: Fracture healing: Osteoporosis type: unspecified Presence of current pathological fracture: without current pathological fracture Qualified Code(s): M81.0 - Age-related osteoporosis without current pathological fracture (2) HLD (hyperlipidemia) Hyperlipidemia type: unspecified Qualified Code(s): E78.5 - Hyperlipidemia, unspecified (3) GERD (gastroesophageal reflux disease) Esophagitis presence: without esophagitis Qualified Code(s): K21.9 - Gastro- esophageal reflux disease without esophagitis (4) Macular degeneration Exudative macular degeneration stage: Eye laterality: unspecified Macular degeneration type: unspecified type Nonexudative macular degeneration stage: Qualified Code(s): H35.30 - Unspecified macular degeneration
--- NOTE | 2018-09-28 13:30 | Discharge Summary ---
Date of Service September 28, 2018 Admission HPI Per Admitting Provider This is a 83-year-old white female with significant past medical history of HLD , Hx of Afib (per patient, records indicate SVT), macular degeneration, osteoporosis, GERD who presents to [facility] ED secondary to chest discomfort and shortness of breath times 1 day. Patient states she was trying to go to sleep last night whenever she had chest discomfort, substernally , nonradiating, worsened with deep breathing. "[place] like all bones in my chest were breaking." Patient was able to get to sleep however when she awoke this morning symptoms persisted therefore she presented to ED. Upon arriving in ED it was noted that she was in atrial flutter versus atrial fibrillation. Patient states she has history of atrial fibrillation and currently takes metoprolol, but was never anticoagulated and is currently on aspirin only. With prior episodes she was able to feel palpitations, heart racing like sensation, this is absent during this visit. She denies any fever, chills, sweats, lightheadedness, dizziness, palpitations, nausea, vomiting, diarrhea, abdominal pain, hemoptysis, hematemesis, melena. Patient does note that she has some right maxillary sinus congestion with purulent drainage x 2 weeks, feeling of fullness, pain in right maxillary region. "I think I have a sinus infection." She also elicits approximately 2 weeks ago she lost complete hearing in her left ear and saw Dr. 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 While on prednisone it made her feel very jittery, weak in the legs, wobbly. "It was horrible while I was on prednisone I think it caused all this." Overall her appetite is good but she only drinks approximately 8 ounces of water daily. Daughter is at bedside. Admission Exam Per Admitting Provider Gen: WD/WN, elderly F, NAD, sitting up in bed, pleasant, conversing easily Head: Normocephalic, Atraumatic Eyes: Sclera normal, no conjunctival injection, PERRLA, EOMI ENT: Gross hearing intact with aides b/l, normal pharynx, mucous membranes moist , R maxillary sinus region +edema, erythema, +pressure, Nasal turbinates engorged and erythematous Neck: supple, no adenopathy, No JVD, no bruit, Resp: Clear to auscultation b/l, no wheeze, rales, rhonchi. 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 Extremities: trace edema bilaterally Skin: warm, moist, no rash, negative turgor, cap refill < 2sec Neuro: Alert and oriented x 3, speech normal, good mood/affect, cran nerve 2-12 intact grossly : deferred Principal Diagnosis Atrial flutter with rapid ventricular response, Right maxillary sinusitis, anticoagulated on anticoagulation therapy Discharge Exam Constitutional WD/WN, vitals as above Eyes PERRL, conjunctivae normal, anicteric sclerae EOM intact bilaterally ENMT external ear and nose normal, oropharynx normal Neck trachea midline, no thyromegaly Respiratory normal respiratory effort, lungs clear to auscultation Cardiovascular Rate/Rhythm: regular rate (heart is in atrial flutter. heart rate controlled) Gastrointestinal (Abdomen) normal bowel sounds, soft, nontender, no hepatosplenomegaly Musculoskeletal Head/Neck/Chest: normocephalic and head atraumatic Neurologic PERRL, EOMI, accommodation nl, no face palsy, no dysarthria CN's II-XI intact bilaterally Psychiatric A+Ox3, euthymic affect Discharge Data Allergies Allergy/AdvReac Type Severity Reaction Status Date / Time Bactrim Allergy Unknown . Unverified 08/01/17 17:48 Sulfa (Sulfonamide Allergy Unknown . Unverified 09/26/18 14:36 Antibiotics) sulfamethoxazole Allergy Unknown . Unverified 09/26/18 14:36 trimethoprim Allergy Unknown . Unverified 09/26/18 14:36 Consultations 09/26/18 14:34 ED Decision to Admit Stat 09/26/18 15:30 Consult Cardiology Routine 09/26/18 16:10 Consult Case Management - Discharge Planning Routine Hospital Course (1) Atrial fibrillation and flutter: This is a 83-year-old white female with significant past medical history of HLD, Hx of Afib (per patient, records indicate SVT), macular degeneration, osteoporosis, GERD who presents to [facility] ED secondary to chest discomfort and shortness of breath times 1 day. In ED patient noted to be in Atrial flutter, given IV diltiazem 10mg w/o relief and transitioned to diltiazem gtt Further work up notable for WBC 14k, DONOVAN with BUN 19 Cr 0.67, trop wnl, D-Dimer WNL, CXR normal Atrial flutter with rapid ventricular response / Anticoagulated on anticoagulation therapy heart rates controlled after cardiazem drip as inpatient from admission to on oral cardiazem and oral metoprolol patient off heparin drip and transitioned to Eliquis by cardiology service as of 09/28/18 Discharge Prescription: apixaban (Eliquis) 5 mg twice a day every day Patient should stop aspirin while on Eliquis Diltiazem 180 mg daily metoprolol succinate as 75 twice a day every day (2) Right maxillary sinusitis: -continue amoxicillin 500mg po tid Discharge Prescription: Patient should take amoxicillin three times a day for 5 more days (3) DONOVAN (acute kidney injury): DONOVAN resolved (4) HLD (hyperlipidemia): -continue statin (5) GERD (gastroesophageal reflux disease): -continue PPI (6) Osteoporosis: -continue Vit D and Ca supplementation (7) Macular degeneration: -continue multivit + Lutein (8) Deep vein thrombosis (DVT) prophylaxis not tolerated by patient: anticoagulated on medication Main Discharge diagnosis Atrial flutter with rapid ventricular response, Right maxillary sinusitis, anticoagulated on anticoagulation therapy Discharge Instructions Patient should take amoxicillin three times a day for 5 more days Patient should take apixaban (Eliquis) 5 mg twice a day every day Patient should stop aspirin while on Eliquis Patient should take Diltiazem 180 mg daily Patient should take metoprolol succinate as 75 twice a day every day Follow up with 10/03/2018 10:00 AM Provider Morgan Llamas MD Department Internal Medicine [facility] 10/07/2018 1:00 PM Provider Issa Fairchild Jr., DO Department Cardiology, [facility] Total Time Total Time Spent Total Time Spent (In Minutes): 40 minutes Total Time Includes: Examination of the Patient, Discharge Planning and Medication Reconciliation Discharge Plan Discharge Items Patient Disposition: Home - Self-Care Reason For Visit: A FLUTTER Discharge Diagnosis: Atrial flutter with rapid ventricular response, Right maxillary sinusitis, anticoagulated on anticoagulation therapy Condition: Good Discharge Goals: Improve disease control Activity: Resume your previous activity Non-emergency contact: Primary Care Provider and Beef Cattle Farm Manager Call non-emergency contact if: you have any medication questions Diet: Heart Healthy Addtl Provider Instructions: Discharge Instructions Patient should take amoxicillin three times a day for 5 more days Patient should take apixaban (Eliquis) 5 mg twice a day every day Patient should stop aspirin while on Eliquis Patient should take Diltiazem 180 mg daily Patient should take metoprolol succinate as 75 twice a day every day Follow up with 10/03/2018 10:00 AM Provider Morgan Llamas MD Department Internal Medicine [facility] 10/07/2018 1:00 PM Provider Issa Fairchild Jr. Department Cardiology, [facility] Prescriptions: New diltiazem HCl 180 mg Capsule,Extended Release 24hr 180 mg PO QAM 30 Days Qty: 30 RF: 0 metoprolol succinate 25 mg Tablet Extended Release 24 Hr 75 mg PO BID17 30 Days Qty: 90 RF: 0 apixaban [Eliquis] 5 mg Tablet 5 mg PO BID 30 Days Qty: 60 RF: 0 amoxicillin 500 mg tablet 500 mg PO TID 5 Days Qty: 15 RF: 0 Continue acetaminophen [Tylenol] 325 mg Tablet 650 mg PO HS RF: 0 calcium carbonate-vitamin D3 [Os-Ethan 500 + D3] 500 mg(1,250mg) -200 unit Tablet 1 tab PO QAM RF: 0 furosemide [Lasix] 40 mg Tablet 40 mg PO DAILY PRN (Reason: Fluid Retention) RF: 0 docusate sodium [Colace] 100 mg Capsule 100 mg PO QAM RF: 0 [id number] Tablet 1 tab PO QAM RF: 0 rosuvastatin [Crestor] 10 mg Tablet 10 mg PO Q2D RF: 0 Discontinued aspirin 81 mg Tablet,Delayed Release (Dr/Ec) 81 mg PO QAM RF: 0 metoprolol succinate 50 mg Tablet Extended Release 24 Hr 50 mg PO BID RF: 0 Stand-Alone Forms: [facility] Discharge Orders: Discharge Order (Routine); Ordered 02/10/19 Ordered By: Oskar Dominguez Admission Data Admit Date/Time: 09/26/18 14:58 Attending Provider: Oskar Dominguez Admit Provider: Oskar Dominguez Primary Care Provider: Morgan Llamas Other Providers: Oskar Dominguez ; Mayur Castillo Service: Telemetry Other Interventions: Discharge Summary Assessment (RN) Last Done: 09/28/18 12:57
== END 2018-09-28 13:38 | disposition home or self-care (01) | DRG 309 ==
LOC: ED 11:59 → 2S 14:58

== ENCOUNTER 2018-10-27 08:03 | Inpatient (IN) ==
[2018-10-27] MEDS ORDERED: ZOLPIDEM TARTRATE 5 MG TAB PO PRN (09:56)
[2018-10-27] MEDS ORDERED: POLYETHYLENE (MIRALAX) 17 GM PACK PO PRN (09:56)
[2018-10-27] MEDS ORDERED: MAGNESIUM HYDROXIDE SUSP 30 ML UDC PO PRN (09:56)
[2018-10-27] MEDS ORDERED: ALUMINUM/MAGNESIUM SUSP 30 ML UDC PO PRN (09:56)
[2018-10-27] MEDS ORDERED: ONDANSETRON INJ 2 MG/ML 2 ML VIAL IV PRN (09:56)
[2018-10-27] MEDS ORDERED: ACETAMINOPHEN 325 MG TAB PO PRN (09:56)
--- NOTE | 2018-10-27 10:08 | History & Physical Report ---
Date of Service October 27, 2018 Assessment & Plan (1) HLD (hyperlipidemia): cont crestor (2) Atrial flutter with rapid ventricular response: for amiodarone bolus and load will start now hold cardizem but cont metoprolol (can be held or reduced based on HR response to amio) cont Eliquis uninterrupted npo after midnight for DC cardioversion in AM should she remain in atrial flutter History of Present Illness Chief Complaint: atrial flutter Primary Care Provider: Morgan Llamas MD Mrs. David is a very pleasant 83-year-old woman who I originally met at [facility] on September 27 after she presented in symptomatic atrial flutter with rapid ventricular response. At that time, she was rate controlled with Cardizem and metoprolol and her symptoms resolved. She was started on Eliquis and discharged to home. She presented 10/07 in followup and states that unfortunately since she has been discharged, she has not been doing well at all. She states that since discharge, she just has no energy and gets very tired and even dyspneic with even the most minimal activities. She states yesterday she changed her bed linens and that took about all day and she felt tuckered out. When she exerts herself, she does get a little dyspneic and maybe even a little heaviness in her chest, feeling as though it is hard to breathe. But she continues to deny any palpitations, lightheadedness, dizziness, or syncope. She has not been having any bleeding problems on the Eliquis and otherwise doing well. Unfortunately, she did break a tooth the day after discharge, but she has not had any discomfort, and her main concern continues to be that of being able to go to the [facility] [employer] [facility]. PAST MEDICAL HISTORY: 1. Atrial flutter/fibrillation, started on Eliquis anticoagulation September 27, 2018. 2. Macular degeneration. 3. Chronic venous insufficiency. 4. Dyslipidemia. Allergies Allergy/AdvReac Type Severity Reaction Status Date / Time Bactrim Allergy Unknown . Unverified 08/01/17 17:48 Sulfa (Sulfonamide Allergy Unknown . Unverified 09/26/18 14:36 Antibiotics) sulfamethoxazole Allergy Unknown . Unverified 09/26/18 14:36 trimethoprim Allergy Unknown . Unverified 09/26/18 14:36 Home Medications Home Medications Medication Instructions Recorded Confirmed Type acetaminophen [Tylenol] 650 mg PO HS 09/26/18 09/26/18 History calcium carbonate-vitamin D3 1 tab PO QAM 09/26/18 09/26/18 History [Os-Ethan 500 + D3] docusate sodium [Colace] 100 mg PO QAM 09/26/18 09/26/18 History furosemide [Lasix] 40 mg PO DAILY PRN 09/26/18 09/26/18 History lfkghtkcrgbj-[id number]-uvqgzq 1 tab PO QAM 09/26/18 09/26/18 History rosuvastatin [Crestor] 10 mg PO Q2D 09/26/18 09/26/18 History apixaban [Eliquis] 5 mg PO BID 30 Days #60 tab 09/28/18 Rx diltiazem HCl 180 mg PO QAM 30 Days #30 cap 09/28/18 Rx metoprolol succinate 75 mg PO BID17 30 Days #90 tab 09/28/18 Rx Past Med/Surg History Medical History HLD (hyperlipidemia) GERD (gastroesophageal reflux disease) Macular degeneration Osteoporosis History of PSVT (paroxysmal supraventricular tachycardia) Surgical History History of appendectomy History of cholecystectomy History of total hysterectomy with bilateral salpingo-oophorectomy (BSO) History of lumbar laminectomy History of History of cataract extraction Family History Father , age 65 Heart attack Mother CAD (coronary artery disease) CHF (congestive heart failure) Sister Atrial fibrillation Social History Preferred Language: [place] Beliefs That Will Affect Care: None marital status: / Current Living Situation: Alone current occupational status: retired other: walks with cane, still drives Feels Safe at Home: Yes Smoking Status: Former smoker Hx Alcohol Use: No Hx Substance Use: No Review of Systems All systems reviewed & are unremarkable except as noted in HPI & below Physical Exam Vital Signs (Past 24 Hours): General: Awake, alert and oriented x 3. No acute distress. HEENT: Normocephalic, atraumatic. Pupils equal, round and reactive to light and accommodation. Extraocular muscles are intact. Anicteric sclera. Moist mucous membranes. Neck: No JVD. No bruit. Cardiovascular: irregularly irregular, unable to appreciate murmur, rub or gallop. Pulmonary: Clear to auscultation bilaterally. No rales, rhonchi, or wheezing. Abdomen: Bowel sounds x 4, soft. No rebound, guarding or tenderness. No organomegaly. Extremities: No clubbing, cyanosis or edema. +2 pedal pulses bilaterally. Skin: Warm and dry. (1) HLD (hyperlipidemia) Hyperlipidemia type: unspecified Qualified Code(s): E78.5 - Hyperlipidemia, unspecified
[2018-10-27] MEDS ORDERED: PATIENT'S HEIGHT AND/OR WEIGHT NEEDED SCH (10:30)
[2018-10-27] MEDS ORDERED: AMIODARONE / D5W 150 MG/100 ML BAG IV STA (10:39)
[2018-10-27] MEDS ORDERED: AMIODARONE IV BOLUS / DRIP IV STA (10:55)
[2018-10-27] MEDS ORDERED: AMIODARONE 150 MG in DEXTROSE 5% 100 ML IV ONE (11:00)
[2018-10-27] MEDS ORDERED: AMIODARONE / D5W 360 MG/200 ML BAG IV SCH (11:15)
[2018-10-27 11:43] LABS: Basophils # (auto) 0.02 K/uL (0-0.2); Basophils % (auto) 0.3 %; Eosinophils # (auto) 0.02 K/uL (0-0.5); Eosinophils % (auto) 0.3 %; Hemoglobin 13.1 g/dL (12.0-16.0); Immature Granulocytes # (auto) 0.01 K/uL (0.00-0.02); Immature Granulocytes % (auto) 0.1 %; Lymphocytes # (auto) 1.59 K/uL (1.2-3.4); Lymphocytes % (auto) 21.8 %; Mean Corpuscular Volume 92.1 fL (80-100); Mean Platelet Volume 10.4 fL (7.4-10.4); Monocytes # (auto) 0.68 K/uL (0.11-0.59); Monocytes % (auto) 9.3 %; Neutrophils # (auto) 4.97 K/uL (1.4-6.5); Neutrophils % (auto) 68.2 %; Platelet Count 307 K/uL (130-400); RDW Coefficient of Variation 13.6 % (11.5-14.5); RDW Standard Deviation 45.6 fL (36.4-46.3); Red Blood Count 4.45 M/uL (4.2-5.4); White Blood Count 7.29 K/uL (4.8-10.8)
[2018-10-27 12:04] LABS: Alanine Aminotransferase 27 U/L (12-78); Albumin Level 2.8 gm/dl (3.4-5.0); Aspartate Aminotransferase 22 U/L (15-37); BUN Creatinine Ratio 20.9 (10-20); Blood Urea Nitrogen 14 mg/dl (7-18); Calcium 8.8 mg/dl (8.5-10.1); Carbon Dioxide 26 mmol/L (21-32); Chloride 109 mmol/L (98-107); Est GFR (Non-African American) 79.4; Glucose 171 mg/dl (70-99); Potassium 3.6 mmol/L (3.5-5.1); Sodium 142 mmol/L (136-145)
[2018-10-27 12:15] LABS: Albumin Globulin Ratio 0.8 (0.9-2); Alkaline Phosphatase 92 U/L (45-117); Bilirubin,Total 0.3 mg/dl (0.2-1); Globulin 3.5 gm/dl (2.5-4.0); Total Protein 6.3 gm/dl (6.4-8.2)
[2018-10-27] MEDS ORDERED: POTASSIUM CHLORIDE 20 MEQ TABCR PO STA (16:05)
[2018-10-27] MEDS: AMIODARONE / D5W 360 MG/200 ML BAG IV SCH (17:04)
[2018-10-27] MEDS: APIXABAN 5 MG TABLET PO SCH (20:00)
[2018-10-27] MEDS: METOPROLOL SUCC 50MG EXT REL TAB PO SCH (20:01)
[2018-10-27] MEDS: CALCIUM 600MG + VIT D 400 IU TAB PO SCH (20:02)
[2018-10-27] MEDS: ROSUVASTATIN CALCIUM 10 MG TAB PO SCH (20:05)
[2018-10-28] MEDS: AMIODARONE / D5W 360 MG/200 ML BAG IV SCH (04:25)
[2018-10-28 07:06] LABS: Calcium 9.3 mg/dl (8.5-10.1); Creatinine Clr Calc Pharmacy 63.7 ml/min; Est GFR (Non-African American) 84.5; Potassium 3.8 mmol/L (3.5-5.1)
[2018-10-28] MEDS: METOPROLOL SUCC 50MG EXT REL TAB PO SCH ×2 (08:02→21:44)
[2018-10-28] MEDS: CHOLECALCIFEROL 1,000 UNITS TAB PO SCH (08:02)
[2018-10-28] MEDS: APIXABAN 5 MG TABLET PO SCH ×2 (08:03→21:45)
[2018-10-28] MEDS: PANTOprazole 40 MG TAB PO SCH (08:03)
[2018-10-28] MEDS: CALCIUM 600MG + VIT D 400 IU TAB PO SCH ×2 (08:03→21:44)
[2018-10-28] MEDS ORDERED: MIDAZOLAM HCL 1 MG/ML 2ML VIAL ONE (08:21)
[2018-10-28] MEDS ORDERED: fentaNYL citrate 100 MCG/2 ML VIAL ONE (08:21)
--- NOTE | 2018-10-28 09:11 | History & Physical Bridge Note ---
Date of Service October 28, 2018 History & Physical Bridge Note I have examined the patient, reviewed the History & Physical and in the interval since the performance of the History & Physical I have noted the following changes of clinical significance: no changes noted
--- NOTE | 2018-10-28 09:11 | Pre Anesthesia Assessment ---
Date of Service October 28, 2018 Pre Sedation Assessment Vital Signs Temp Pulse Pulse Pulse Resp BP Pulse Ox 10/28/18 06:49 36.7 C 106 H 20 139/89 93 10/28/18 04:02 36.4 C L 103 H 20 137/84 93 10/27/18 22:49 37 C 100 H 20 126/88 94 10/27/18 19:17 36.9 C 77 18 106/71 96 10/27/18 18:33 90 111/79 10/27/18 16:00 85 10/27/18 15:34 96 H 106/67 10/27/18 15:16 37.0 C 79 16 99/56 L 93 10/27/18 10:35 36.7 C 121 H 122 H 21 116/78 97 Pre-Sedation Airway Assessment Smoking Status: Former smoker Hx Sleep Apnea: No Short, Thick Neck: No Thyromental Distance: > or= 3.5 Finger Breadths Oral Cavity: + Dental Abnormalities Mallampati Class: III ASA: ASA2 NPO Status Date of Last Intake of Fluids: 10/28/18 Time of Last Intake of Fluids: 23:59 Date of Last Intake of Solid Food: 10/27/18 Time of Last Intake of Solid Foods: 23:59 Notes The planned sedation has been discussed with the patient. Informed Consent was obtained. I have identified the patient, determined the appropriateness of sedation and have assessed the patient immediately prior to the procedure. All medicine(s) and interventions are by my order.
--- NOTE | 2018-10-28 09:15 | Post Anesthesia Assessment ---
Date of Service October 28, 2018 Post Sedation Assessment Vital Signs Temp Pulse Pulse Pulse Resp BP Pulse Ox 10/28/18 06:49 36.7 C 106 H 20 139/89 93 10/28/18 04:02 36.4 C L 103 H 20 137/84 93 10/27/18 22:49 37 C 100 H 20 126/88 94 10/27/18 19:17 36.9 C 77 18 106/71 96 10/27/18 18:33 90 111/79 10/27/18 16:00 85 10/27/18 15:34 96 H 106/67 10/27/18 15:16 37.0 C 79 16 99/56 L 93 10/27/18 10:35 36.7 C 121 H 122 H 21 116/78 97 Post Sedation Plan On clinical assessment, the patient appears to have tolerated the sedation without complications. Patient is recovering as anticipated. Patient will continue to be monitored by nursing and may be discharged when sedation discharge criteria are met per below protocol. Upon Completions of procedure and additional 15 minutes continue every 5 minute vital signs and the P.A.R. score; then discharge to a Phase I or Fast Track to Phase II per the following guidelines: * Discharge Patient to appropriate Phase II area if PAR is 8 or greater or return to pre- procedure baseline. The post - procedure orders will be as directed. * If PAR score is less than 8 or not return to pre-procedure baseline then patient will follow Phase I monitoring till PAR is reached for Phase II. The Phase I may be done in procedure room or may call to secure a Phase I area. * If naloxone or flumazenil are used for reversal, hold in Phase I for continued monitoring from when last reversal dose was given for a minimum of 60 minutes or longer pending the nurse and/or physician discretion of patient condition before discharge to Phase II. Please call the Sedation Physician to re-evaluate and complete post-note for discharge to Phase II area. Do NOT discharge from procedure sedation or Phase 1 until post- sedation evaluation note is complete by procedure /sedation MD Sedation Discharge Instructions to be given to the patient at discharge to home.
--- NOTE | 2018-10-28 09:18 | Operative Report ---
Post Operative Report Pre & Post Diagnosis Operation Date: 10/28/18 08:00 <No data on this case meets the specified criteria> Procedure Informed consent obtained pt prepped Moderate conscious sedation achieved with a total of Versed 3 mg and Fentanyl 75 mcg 300J of synchronized energy delivered with successful cardioversion to sinus rhythm pt tolerated well no complications start time: 909 stop time: 916 Plan: transfer back to pcu will transition amiodarone to oral and monitor overnight Surgeon Issa Fairchild, DO Photographic Laboratory Supervisor none Estimated Blood Loss 0 Findings Consistent with Post-Op Diagnosis Specimens none Description of Procedure DC cardioversion I attest to the content of the Intraoperative Record and any orders documented therein. Any exceptions are noted below.
--- NOTE | 2018-10-28 12:59 | Cardiology Progress Note ---
Date of Service October 28, 2018 Assessment & Plan (1) Atrial fibrillation and flutter: s/p successful cardioversion tolerated well will d/c IV amio and start 400mg po tid for now and likely d/c home on 400mg bid cont Kimberly valeriom d/c'ed cont lower dose metoprolol cont to monitor on tele overnight likely d/c to home in AM Subjective Pt seen and examined, s/p cardioversion. Both daughters present at bedside. Pt states that she feels well. Chest heaviness she was having previously has resolved with cardioversion. Denies cp, sob, palpitations, lightheadedness or dizziness. Tele reviewed: afib with variable rates overnight, currently sinus rhythm with occasional PAC's. Review of Systems All systems reviewed & are unremarkable except as noted in HPI & below Physical Exam Vital Signs (Past 24 Hours): Last Vital Signs Temp 37.2 C 10/28/18 11:46 Pulse 82 10/28/18 11:46 Resp 20 10/28/18 11:46 BP 129/68 10/28/18 11:46 Pulse Ox 93 10/28/18 11:46 Physical Exam: General: Awake, alert and oriented x 3. No acute distress. HEENT: Normocephalic, atraumatic. Pupils equal, round and reactive to light and accommodation. Extraocular muscles are intact. Anicteric sclera. Moist mucous membranes. Neck: No JVD. No bruit. Cardiovascular: Regular. Positive S-4. Normal S-1 and S-2. No S-3. No murmurs or rubs. Pulmonary: Clear to auscultation B/L. No rales, rhonchi or wheezing Abdomen: Bowel sounds x 4, soft. No rebound, guarding or tenderness. No organomegaly. Extremities: No clubbing, cyanosis or edema. +2 pedal pulses bilaterally. Skin: Warm and dry.
[2018-10-28] MEDS ORDERED: AMIODARONE 200 MG TAB PO SCH (14:00)
[2018-10-28] MEDS ORDERED: AMIODARONE / D5W 150 MG/100 ML BAG IV STA (15:30)
[2018-10-28] MEDS ORDERED: AMIODARONE / D5W 360 MG/200 ML BAG IV SCH ×2 (15:30→21:30)
[2018-10-28] MEDS ORDERED: AMIODARONE IV BOLUS / DRIP IV STA (15:30)
[2018-10-28] MEDS ORDERED: POTASSIUM CHLORIDE 20 MEQ TABCR PO STA (15:31)
[2018-10-28 16:27] LABS: Magnesium 2.2 mg/dl (1.8-2.4)
[2018-10-28] MEDS ORDERED: METOPROLOL TARTRATE 1 MG/ML VIAL IV STA (18:46)
[2018-10-29] MEDS ORDERED: METOPROLOL TARTRATE 1 MG/ML VIAL IV STA (08:31)
[2018-10-29] MEDS: CALCIUM 600MG + VIT D 400 IU TAB PO SCH ×2 (09:15→20:07)
[2018-10-29] MEDS: APIXABAN 5 MG TABLET PO SCH ×2 (09:15→20:07)
[2018-10-29] MEDS: PANTOprazole 40 MG TAB PO SCH (09:16)
[2018-10-29] MEDS: CHOLECALCIFEROL 1,000 UNITS TAB PO SCH (09:16)
[2018-10-29] MEDS: ROSUVASTATIN CALCIUM 10 MG TAB PO SCH (09:16)
[2018-10-29] MEDS: METOPROLOL SUCC 50MG EXT REL TAB PO SCH ×3 (09:21→20:07)
[2018-10-29] MEDS: AMIODARONE 200 MG TAB PO SCH ×3 (10:15→20:07)
--- NOTE | 2018-10-29 10:21 | Cardiology Progress Note ---
Date of Service October 29, 2018 Assessment & Plan (1) Atrial fibrillation and flutter: cardioversion initially successful, unfortunately lapsed back into atrial fibrillation has remained in afib despite rebolusing IV amio and being given IV Lopressor will change amio to 400mg po tid now will increase metoprolol to 100mg bid if remains in afib overnight, will plan for second attempt at DC cardioversion in AM, pt agreeable with plan npo after midnight Cont Kimberly Subjective Pt seen and examined, a little discouraged today that she went back into afib. She did feel it and soon as she converted with her heart beating irregularly in her chest. Denies cp, sob, lightheadedness or dizziness. Tele reviewed: went back into afib around 1500 yesterday, no other arrhythmias. Review of Systems All systems reviewed & are unremarkable except as noted in HPI & below Physical Exam Vital Signs (Past 24 Hours): Last Vital Signs Temp 37.5 C 10/29/18 07:44 Pulse 124 H 10/29/18 07:44 Resp 18 10/29/18 07:44 BP 141/85 H 10/29/18 07:44 Pulse Ox 94 10/29/18 07:44 Physical Exam: General: Awake, alert and oriented x 3. No acute distress. HEENT: Normocephalic, atraumatic. Pupils equal, round and reactive to light and accommodation. Extraocular muscles are intact. Anicteric sclera. Moist mucous membranes. Neck: No JVD. No bruit. Cardiovascular: irregularly irregular, unable to appreciate murmur, rub or gallop. Pulmonary: Clear to auscultation bilaterally. No rales, rhonchi, or wheezing. Abdomen: Bowel sounds x 4, soft. No rebound, guarding or tenderness. No organomegaly. Extremities: No clubbing, cyanosis or edema. +2 pedal pulses bilaterally. Skin: Warm and dry.
[2018-10-29] MEDS ORDERED: dilTIAZem HCl 5 MG/ML 5 ML VIAL IV STA (15:56)
[2018-10-29] MEDS: dilTIAZem HCl 125 MG in DEXTROSE 5% 100 ML IV SCH (17:53)
[2018-10-30] MEDS: dilTIAZem HCl 125 MG in DEXTROSE 5% 100 ML IV SCH (03:45)
[2018-10-30 06:01] LABS: BUN Creatinine Ratio 17.3 (10-20); Calcium 9.9 mg/dl (8.5-10.1); Creatinine Clr Calc Pharmacy 59.5 ml/min; Est GFR (African American) 95.8; Est GFR (Non-African American) 82.7; Magnesium 1.9 mg/dl (1.8-2.4); Potassium 3.5 mmol/L (3.5-5.1)
[2018-10-30] MEDS: METOPROLOL SUCC 50MG EXT REL TAB PO SCH ×2 (07:53→21:13)
[2018-10-30] MEDS: AMIODARONE 200 MG TAB PO SCH ×3 (07:54→21:07)
[2018-10-30] MEDS: CALCIUM 600MG + VIT D 400 IU TAB PO SCH ×2 (07:54→21:09)
[2018-10-30] MEDS: CHOLECALCIFEROL 1,000 UNITS TAB PO SCH (07:55)
[2018-10-30] MEDS: APIXABAN 5 MG TABLET PO SCH ×2 (07:55→21:08)
[2018-10-30] MEDS: PANTOprazole 40 MG TAB PO SCH (07:55)
[2018-10-30] MEDS ORDERED: fentaNYL citrate 100 MCG/2 ML VIAL ONE (08:50)
[2018-10-30] MEDS ORDERED: MIDAZOLAM HCL 1 MG/ML 2ML VIAL ONE (08:51)
[2018-10-30] MEDS: POTASSIUM CHLORIDE 20 MEQ TABCR PO SCH ×2 (08:54→21:07)
--- NOTE | 2018-10-30 09:38 | Pre Anesthesia Assessment ---
Date of Service October 30, 2018 Pre Sedation Assessment Vital Signs Temp Pulse Pulse Pulse Resp BP Pulse Ox 10/30/18 07:50 37 C 89 18 130/63 93 10/30/18 06:51 37.0 C 90 16 117/68 92 10/30/18 04:00 36.9 C 101 H 18 140/77 93 10/30/18 00:00 87 10/29/18 23:20 36.8 C 100 H 16 125/82 95 10/29/18 20:00 107 H 10/29/18 19:27 37.0 C 107 H 18 121/68 94 10/29/18 14:37 36.7 C 120 H 20 155/103 H 91 10/29/18 14:20 117 H 10/29/18 11:14 36.7 C 113 H 16 137/110 H 95 Pre-Sedation Airway Assessment Smoking Status: Former smoker Hx Sleep Apnea: No Short, Thick Neck: No Thyromental Distance: > or= 3.5 Finger Breadths Oral Cavity: + WNL Mallampati Class: II ASA: ASA2 NPO Status Date of Last Intake of Fluids: 10/29/18 Time of Last Intake of Fluids: 23:59 Date of Last Intake of Solid Food: 10/29/18 Time of Last Intake of Solid Foods: 23:59 Notes The planned sedation has been discussed with the patient. Informed Consent was obtained. I have identified the patient, determined the appropriateness of sedation and have assessed the patient immediately prior to the procedure. All medicine(s) and interventions are by my order.
--- NOTE | 2018-10-30 09:38 | History & Physical Bridge Note ---
Date of Service October 30, 2018 History & Physical Bridge Note I have examined the patient, reviewed the History & Physical and in the interval since the performance of the History & Physical I have noted the following changes of clinical significance: no changes noted
--- NOTE | 2018-10-30 09:50 | Post Anesthesia Assessment ---
Date of Service October 30, 2018 Post Sedation Assessment Vital Signs Temp Pulse Pulse Pulse Resp BP Pulse Ox 10/30/18 07:50 37 C 89 18 130/63 93 10/30/18 06:51 37.0 C 90 16 117/68 92 10/30/18 04:00 36.9 C 101 H 18 140/77 93 10/30/18 00:00 87 10/29/18 23:20 36.8 C 100 H 16 125/82 95 10/29/18 20:00 107 H 10/29/18 19:27 37.0 C 107 H 18 121/68 94 10/29/18 14:37 36.7 C 120 H 20 155/103 H 91 10/29/18 14:20 117 H 10/29/18 11:14 36.7 C 113 H 16 137/110 H 95 Recovery Score Activity: Moves 4 extremities Respiration: Deep Breath/Cough Circulation: +/-20% PreAnes Value Consciousness: Fully Awake Oxygen Saturation: > 92% On Room Air Post Anesthesia Score: 10 Post Sedation Plan On clinical assessment, the patient appears to have tolerated the sedation w ithout complications. Patient is recovering as anticipated. Patient will continue to be monitored by nursing and may be discharged when sedation discharge criteria are met per below protocol. Upon Completions of procedure and additional 15 minutes continue every 5 minute vital signs and the P.A.R. score; then discharge to a Phase I or Fast Track to Phase II per the following guidelines: * Discharge Patient to appropriate Phase II area if PAR is 8 or greater or return to pre- procedure baseline. The post - procedure orders will be as directed. * If PAR score is less than 8 or not return to pre-procedure baseline then patient will follow Phase I monitoring till PAR is reached for Phase II. The Phase I may be done in procedure room or may call to secure a Phase I area. * If naloxone or flumazenil are used for reversal, hold in Phase I for continued monitoring from when last reversal dose was given for a minimum of 60 minutes or longer pending the nurse and/or physician discretion of patient condition before discharge to Phase II. Please call the Sedation Physician to re-evaluate and complete post-note for discharge to Phase II area. Do NOT discharge from procedure sedation or Phase 1 until post- sedation evaluation note is complete by procedure /sedation MD Sedation Discharge Instructions to be given to the patient at discharge to home.
--- NOTE | 2018-10-30 09:53 | Operative Report ---
Post Operative Report Pre & Post Diagnosis Operation Date: 10/28/18 08:00 Pre-Op Diagnosis: A-FIB Post-Op Diagnosis: A-FIB Operation Date: 10/30/18 09:00 <No data on this case meets the specified criteria> Procedure Informed consent obtained. pt prepped moderate conscious sedation achieved with a total of Versed 3mg and Fentanyl 75mcg 300J of DC energy delievered with succesful cardioversion to sinus rhythm pt tolerated well no complications start time: 942 stop time: 949 Surgeon Issa Fairchild, DO Snath Handle Assembler none Estimated Blood Loss 0 Findings Consistent with Post-Op Diagnosis Specimens none Description of Procedure DC cardioversion I attest to the content of the Intraoperative Record and any orders documented therein. Any exceptions are noted below.
--- NOTE | 2018-10-30 11:53 | Cardiology Progress Note ---
Date of Service October 30, 2018 Assessment & Plan (1) Atrial fibrillation and flutter: cardioversion this AM successful thus far interestingly, symptoms resolved with greater rate control last PM will cont amio tid for today and d/c home on 200mg bid tomorrow metoprolol dose reduced to 50mg bid if converts back to afib again would rate control with CCB Cont Kimberly will monitor on tele overnight likely d/c to home in AM Subjective Pt seen and examined, states that she feels well. Actually, started to feel better after cardizem gtt started and rate was controlled last PM. Tolerated cardioversion well this AM. No complaints Tele reviewed: afib overnight, has remained in sinus thus far since cardioversion Review of Systems All systems reviewed & are unremarkable except as noted in HPI & below Physical Exam Vital Signs (Past 24 Hours): Last Vital Signs Temp 36.8 C 10/30/18 10:56 Pulse 61 10/30/18 10:56 Resp 18 10/30/18 10:56 BP 131/68 10/30/18 10:56 Pulse Ox 92 10/30/18 10:56 Physical Exam: General: Awake, alert and oriented x 3. No acute distress. HEENT: Normocephalic, atraumatic. Pupils equal, round and reactive to light and accommodation. Extraocular muscles are intact. Anicteric sclera. Moist mucous membranes. Neck: No JVD. No bruit. Cardiovascular: Regular. Positive S-4. Normal S-1 and S-2. No S-3. No murmurs or rubs. Pulmonary: Clear to auscultation B/L. No rales, rhonchi or wheezing Abdomen: Bowel sounds x 4, soft. No rebound, guarding or tenderness. No organomegaly. Extremities: No clubbing, cyanosis or edema. +2 pedal pulses bilaterally. Skin: Warm and dry.
[2018-10-31 07:37] LABS: BUN Creatinine Ratio 28.8 (10-20); Calcium 10.1 mg/dl (8.5-10.1); Creatinine Clr Calc Pharmacy 55.8 ml/min; Est GFR (African American) 93.8; Potassium 4.3 mmol/L (3.5-5.1)
[2018-10-31] MEDS: CALCIUM 600MG + VIT D 400 IU TAB PO SCH (08:58)
[2018-10-31] MEDS: PANTOprazole 40 MG TAB PO SCH (08:58)
[2018-10-31] MEDS: AMIODARONE 200 MG TAB PO SCH (08:58)
[2018-10-31] MEDS: CHOLECALCIFEROL 1,000 UNITS TAB PO SCH (08:58)
[2018-10-31] MEDS: APIXABAN 5 MG TABLET PO SCH (08:58)
[2018-10-31] MEDS: POTASSIUM CHLORIDE 20 MEQ TABCR PO SCH (08:59)
[2018-10-31] MEDS: METOPROLOL SUCC 50MG EXT REL TAB PO SCH (08:59)
[2018-10-31] MEDS: ROSUVASTATIN CALCIUM 10 MG TAB PO SCH (09:04)
--- NOTE | 2018-10-31 09:12 | Cardiology Progress Note ---
Date of Service October 31, 2018 Assessment & Plan (1) Atrial fibrillation and flutter: cardioversion successful interestingly, symptoms resolved with greater rate control last PM will cont amio tid for today and d/c home on 200mg bid tomorrow metoprolol dose reduced to 50mg bid Cont Eliquis will cont potassium supplementation bmp and vitals check in 1 week as outpatient d/c to home today, once ride available Subjective Pt seen and examined, states that she feels well. No complaints overnight. Feels her strength starting to improve. Denies cp, sob, palpitations, lightheadedness or dizziness Tele reviewed: sinus rhythm without arrhythmia or significant ectopy. Review of Systems All systems reviewed & are unremarkable except as noted in HPI & below Physical Exam Vital Signs (Past 24 Hours): Last Vital Signs Temp 36.8 C 10/31/18 07:53 Pulse 76 10/31/18 07:53 Resp 19 10/31/18 07:53 BP 158/84 H 10/31/18 07:53 Pulse Ox 93 10/31/18 07:53 Physical Exam: General: Awake, alert and oriented x 3. No acute distress. HEENT: Normocephalic, atraumatic. Pupils equal, round and reactive to light and accommodation. Extraocular muscles are intact. Anicteric sclera. Moist mucous membranes. Neck: No JVD. No bruit. Cardiovascular: Regular. Positive S-4. Normal S-1 and S-2. No S-3. No murmurs or rubs. Pulmonary: Clear to auscultation B/L. No rales, rhonchi or wheezing Abdomen: Bowel sounds x 4, soft. No rebound, guarding or tenderness. No organomegaly. Extremities: No clubbing, cyanosis or edema. +2 pedal pulses bilaterally. Skin: Warm and dry.
--- NOTE | 2018-10-31 09:41 | Discharge Summary ---
Date of Service October 31, 2018 Admission HPI Mrs. David is a very pleasant 83-year-old woman who I originally met at [facility] on September 27 after she presented in symptomatic atrial flutter with rapid ventricular response. At that time, she was rate controlled with Cardizem and metoprolol and her symptoms resolved. She was started on Eliquis and discharged to home. She presented 10/07 in followup and states that unfortunately since she has been discharged, she has not been doing well at all. She states that since discharge, she just has no energy and gets very tired and even dyspneic with even the most minimal activities. She states yesterday she changed her bed linens and that took about all day and she felt tuckered out. When she exerts herself, she does get a little dyspneic and maybe even a little heaviness in her chest, feeling as though it is hard to breathe. But she continues to deny any palpitations, lightheadedness, dizziness, or syncope. She has not been having any bleeding problems on the Eliquis and otherwise doing well. Unfortunately, she did break a tooth the day after discharge, but she has not had any discomfort, and her main concern continues to be that of being able to go to the [facility]. PAST MEDICAL HISTORY: 1. Atrial flutter/fibrillation, started on Eliquis anticoagulation September 27, 2018. 2. Macular degeneration. 3. Chronic venous insufficiency. 4. Dyslipidemia. Principal Diagnosis Principal Diagnosis discharge Discharge Exam General: Awake, alert and oriented x 3. No acute distress. HEENT: Normocephalic, atraumatic. Pupils equal, round and reactive to light and accommodation. Extraocular muscles are intact. Anicteric sclera. Moist mucous membranes. Neck: No JVD. No bruit. Cardiovascular: Regular. Positive S-4. Normal S-1 and S-2. No S-3. No murmurs or rubs. Pulmonary: Clear to auscultation B/L. No rales, rhonchi or wheezing Abdomen: Bowel sounds x 4, soft. No rebound, guarding or tenderness. No organomegaly. Extremities: No clubbing, cyanosis or edema. +2 pedal pulses bilaterally. Skin: Warm and dry. Discharge Data Allergies Allergy/AdvReac Type Severity Reaction Status Date / Time Bactrim Allergy Unknown . Unverified 08/01/17 17:48 Sulfa (Sulfonamide Allergy Unknown . Unverified 09/26/18 14:36 Antibiotics) sulfamethoxazole Allergy Unknown . Unverified 09/26/18 14:36 trimethoprim Allergy Unknown . Unverified 09/26/18 14:36 Procedures Performed Operation Date: 10/28/18 08:00 Actual Procedures p Cardioversion - Issa Fairchild DO Operation Date: 10/30/18 09:00 Actual Procedures p Cardioversion - Issa Fairchild DO Hospital Course (1) Atrial fibrillation and flutter: cardioversion successful interestingly, symptoms resolved with greater rate control last PM will cont amio tid for today and d/c home on 200mg bid tomorrow metoprolol dose reduced to 50mg bid Cont Eliquis will cont potassium supplementation bmp and vitals check in 1 week as outpatient d/c to home today, once ride available Total Time Total Time Spent Total Time Spent (In Minutes): 60 Discharge Plan Discharge Items Patient Disposition: Home - Self-Care Reason For Visit: A-FIB Discharge Diagnosis: paroxysmal atrial fibrillation Condition: Good Discharge Goals: Decrease discomfort and Improve function Activity: Resume your previous activity Lifting: Gradually increase as tolerated Bathing: No limitations Sexual Activity: When tolerated Exercise/Sports: Gradually increase as tolerated Driving/Machine Use: No limitations Non-emergency contact: Primary Care Provider Call non-emergency contact if: you have any medication questions Follow-up/Referrals: Issa Fairchild DO [Physician] - Morgan Llamas MD [Primary Care Provider] - Diet: Heart Healthy Addtl Provider Instructions: lab work and vital signs check in 1 week Prescriptions: New amiodarone 200 mg Tablet 200 mg PO BID Qty: 60 RF: 3 metoprolol succinate 50 mg Tablet Extended Release 24 Hr 50 mg PO BID Qty: 60 RF: 3 potassium chloride [Klor-Con M20] 20 mEq Tablet,Er Particles/Crystals 20 meq PO DAILY Qty: 30 RF: 1 rosuvastatin [Crestor] 10 mg Tablet 10 mg PO QAM Qty: 30 RF: 0 Caltrate 600-D Plus Minerals 600 mg calcium- 800 unit-50 mg Tablet 1 tab PO BID Qty: 60 RF: 0 Eliquis 5 mg Tablet 5 mg PO BID Qty: 60 RF: 1 Continued calcium carbonate-vitamin D3 [Os-Ethan 500 + D3] 500 mg(1,250mg) -200 unit Tablet 1 tab PO QAM RF: 0 furosemide [Lasix] 40 mg Tablet 40 mg PO DAILY PRN (Reason: Fluid Retention) RF: 0 kesiecewirvu-bjilrjle-kasmum Tablet 1 tab PO QAM RF: 0 rosuvastatin [Crestor] 10 mg Tablet 10 mg PO Q2D RF: 0 Discontinued acetaminophen [Tylenol] 325 mg Tablet 650 mg PO HS RF: 0 docusate sodium [Colace] 100 mg Capsule 100 mg PO QAM RF: 0 Stand-Alone Forms: [facility] Discharge Orders: Discharge Order (Routine); Ordered 10/31/18 Ordered By: Issa Fairchild Admission Data Admit Date/Time: 10/27/18 10:17 Attending Provider: Issa Fairchild Admit Provider: Issa Fairchild Primary Care Provider: Morgan Llamas Service: Telemetry Other Interventions: Discharge Summary Assessment (RN) Last Done: 10/30/18 10:53 Pending Studies at Discharge: No
[2018-10-31] MEDS ORDERED: AMIODARONE 200 MG TAB PO SCH (21:00)
[2018-11-01] MEDS ORDERED: POTASSIUM CHLORIDE 20 MEQ TABCR PO SCH (09:00)
== END 2018-10-31 12:10 | disposition home or self-care (01) | DRG 310 ==
LOC: 2E 10:17

== ENCOUNTER 2018-12-12 20:21 | Inpatient (IN) ==
[2018-12-12] MEDS: METOPROLOL TARTRATE 1 MG/ML VIAL IV PRN ×3 (21:05→21:16)
[2018-12-12 21:30] LABS: Alanine Aminotransferase 23 U/L (12-78); Albumin Level 3.6 gm/dl (3.4-5.0); Aspartate Aminotransferase 17 U/L (15-37); BUN Creatinine Ratio 14.4 (10-20); Blood Urea Nitrogen 15 mg/dl (7-18); Calcium 10.3 mg/dl (8.5-10.1); Carbon Dioxide 27 mmol/L (21-32); Chloride 107 mmol/L (98-107); Creatinine Clr Calc Pharmacy 35.9 ml/min; Est GFR (African American) 58.1; Est GFR (Non-African American) 50.1; Glucose 118 mg/dl (70-99); Potassium 4.4 mmol/L (3.5-5.1); Sodium 140 mmol/L (136-145)
[2018-12-12 21:35] LABS: Albumin Globulin Ratio 0.8 (0.9-2); Alkaline Phosphatase 111 U/L (45-117); Bilirubin,Total 0.3 mg/dl (0.2-1); Creatine Kinase 29 U/L (26-192); Creatine Kinase MB < 1.0 ng/ml (0.5-3.6); Globulin 4.4 gm/dl (2.5-4.0); Troponin I < 0.015 ng/ml (0-0.045)
[2018-12-12 21:43] LABS: Basophils # (auto) 0.01 K/uL (0-0.2); Basophils % (auto) 0.1 %; Eosinophils # (auto) 0.05 K/uL (0-0.5); Eosinophils % (auto) 0.7 %; Hematocrit (blood only) 40.6 % (37-47); Hemoglobin 13.1 g/dL (12.0-16.0); Immature Granulocytes # (auto) 0.01 K/uL (0.00-0.02); Immature Granulocytes % (auto) 0.1 %; Lymphocytes % (auto) 24.7 %; Mean Corpuscular Hgb Conc 32.3 g/dL (32-36); Mean Corpuscular Volume 87.7 fL (80-100); Mean Platelet Volume 9.6 fL (7.4-10.4); Monocytes # (auto) 0.82 K/uL (0.11-0.59); Monocytes % (auto) 11.2 %; Neutrophils # (auto) 4.61 K/uL (1.4-6.5); Neutrophils % (auto) 63.2 %; Platelet Count 295 K/uL (130-400); RDW Coefficient of Variation 14.5 % (11.5-14.5); RDW Standard Deviation 46.1 fL (36.4-46.3); Red Blood Count 4.63 M/uL (4.2-5.4)
[2018-12-12] MEDS ORDERED: METOPROLOL TARTRATE 50 MG TAB PO STA (22:12)
[2018-12-12] MEDS ORDERED: SODIUM CHLORIDE 0.9% 500 ML IV ONE ×2 (22:13→23:52)
--- NOTE | 2018-12-12 22:16 | XRay Report ---
XR chest 1V portable HISTORY: 83 years-old Female Chest Pain acute atypical chest pain COMPARISON: Chest radiograph 10/06/2018 TECHNIQUE: Portable AP view of the chest FINDINGS: Cardiomediastinal and hilar silhouettes are within normal limits. There is no pneumothorax,, focal ai rspace consolidation or overt pulmonary edema. Mild blunting of the bilateral costophrenic angles is new from comparison. The bones of the chest appear grossly intact. IMPRESSION: Mild blunting of the bilateral costophrenic angles may be secondary to atelectasis or tra ce pleural effusions. The above report was generated using voice recognition software. It may contain grammatical, syntax o r spelling errors. Electronically signed by: Nav Ferrell M.D. 12/12/2018 10:15 PM
[2018-12-12 23:11] LABS: Magnesium 2.2 mg/dl (1.8-2.4)
[2018-12-12] MEDS ORDERED: METOPROLOL TARTRATE 1 MG/ML VIAL IV STA (23:52)
--- NOTE | 2018-12-12 23:54 | History & Physical Report ---
Date of Service December 12, 2018 Assessment & Plan (1) Atrial fibrillation with RVR: Recurrent possibly secondary to mild clinical dehydration -mild hypercalcemia noted on chemistry On Eliquis hypertension, slightly elevated upon arrival at ER hyperlipidemia on statin Rx past tobacco abuse PCU IVF Increase maintenance Toprol XL dosing from 50 twice a day to 75 twice daily Hold home Amiodarone for now RE possible Sotalol load for recurrent atrial fibrillation as per recent outpatient cardiology note. DVT prophylaxis. Eliquis Full code History of Present Illness Chief Complaint: Palpitations Primary Care Provider: Morgan Llamas MD History obtained from patient, family, and records. Medical history significant for A. fib/a flutter status post cardioversion on Eliquis, hypertension, hyperlipidemia, past tobacco abuse. Recent confinement last month under cardiology service for atrial flutter RVR. Amiodarone initiated, subsequent cardioversion done. Patient seen at [facility] instrument and control service person's office last week for symptomatic recurrent atrial flutter. Outpatient cardioversion done last December 09, 2018. 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 No actual chest pain. Patient compliant with home medications. Denies unusual stress at home. Admits to not being to drink as much water today. At the ER, patient noted to be in rapid A. fib, cardiac rate 110-130s. IV Lopressor administered at the ER. 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 Unverified 08/01/17 17:48 Sulfa (Sulfonamide Allergy Unknown . Unverified 12/12/18 22:16 Antibiotics) sulfamethoxazole Allergy Unknown . Unverified 12/12/18 22:17 trimethoprim Allergy Unknown . Verified 12/12/18 22:17 Home Medications Home Medications Medication Instructions Recorded Confirmed Type calcium carbonate-vitamin D3 1 tab PO QAM 09/26/18 12/12/18 History [Os-Ethan 500 + D3] furosemide [Lasix] 40 mg PO DAILY PRN 09/26/18 12/12/18 History tyhnjvxeikbc-prkckdyy-[id number] 1 tab PO QAM 09/26/18 12/12/18 History rosuvastatin [Crestor] 10 mg PO Q2D 09/26/18 12/12/18 History amiodarone 200 mg PO BID #60 tab 10/31/18 12/12/18 Rx apixaban [Eliquis] 5 mg PO BID #60 tab 10/31/18 12/12/18 Rx [id number] 1 tab PO BID #60 tab 10/31/18 12/12/18 Rx [Caltrate 600-D Plus Minerals] metoprolol succinate 50 mg PO BID #60 tab 10/31/18 12/12/18 Rx potassium chloride [Klor-Con M20] 20 meq PO DAILY #30 tab 10/31/18 12/12/18 Rx biotin 1 tab PO DAILY 12/09/18 12/12/18 History docusate sodium [Colace] 1 tab PO DAILY 12/09/18 12/12/18 History omeprazole 1 tab PO DAILY 12/09/18 12/12/18 History Past Med/Surg History Medical History GERD (gastroesophageal reflux disease) HLD (hyperlipidemia) History of PSVT (paroxysmal supraventricular tachycardia) Macular degeneration Osteoporosis Surgical History History of History of appendectomy History of cataract extraction History of cholecystectomy History of lumbar laminectomy History of total hysterectomy with bilateral salpingo-oophorectomy (BSO) Family History Father , age 65 Heart attack Mother Coronary heart disease CHF (congestive heart failure) Sister Atrial fibrillation Social History Preferred Language: Jamaican Communication Ability: Effective Hearing Ability: Use of Hearing Aid Beliefs That Will Affect Care: None marital status: / Current Living Situation: Alone current occupational status: retired Other Information That Helps Us Care for You: No other: walks with cane, still drives Feels Safe at Home: Yes Safety Concerns: Feels Safe At This Time Smoking Status: Former smoker Cigarettes Per Day: 10 Hx Alcohol Use: No Hx Substance Use: No Review of Systems Review of Systems: As per HPI, all 10 systems reviewed, all other ROS negative Physical Exam Physical Exam: GENERAL: Pleasant, slightly anxious, looks younger than stated age, no respiratory distress SKIN: Normal color, warm HEENT: Bespectacled, pink palpebral conjunctivae, no ptosis, dry buccal mucosa NECK : Supple, no tenderness CHEST : CTA, no tenderness HEART : Tachycardic , no obvious murmurs ABDOMEN: Some distention, nontender EXTREMITIES : Minimal LE swelling, no LE tenderness, no other conspicuous deformities noted NEUROLOGIC : Coherent, no facial asymmetry, no other gross focality Results & Data Vital Signs (Past 12 Hours) Vital Signs Temp Pulse Resp BP Pulse Ox 12/12/18 22:45 110 H 19 134/100 94 12/12/18 22:30 119 H 20 137/98 93 12/12/18 22:15 121 H 20 131/95 94 12/12/18 22:00 124 H 20 118/92 93 12/12/18 21:45 113 H 22 142/95 H 93 12/12/18 21:30 129 H 21 127/101 H 93 12/12/18 21:25 126 H 16 156/82 H 93 12/12/18 21:20 123 H 28 H 141/105 H 93 12/12/18 21:16 113 H 133/96 12/12/18 21:15 120 H 24 133/96 94 12/12/18 21:11 130 H 167/102 H 12/12/18 21:10 135 H 22 145/84 H 93 12/12/18 21:05 123 H 31 H 167/102 H 95 12/12/18 21:00 123 H 16 94 12/12/18 20:58 115 H 15 94 12/12/18 20:29 133 H 16 158/108 H 94 12/12/18 20:09 36.5 C 127 H 18 158/108 H 92 Laboratory Results Laboratory Results WBC 7.30 K/uL (4.8-10.8) 12/12/18 21:23 RBC 4.63 M/uL (4.2-5.4) 12/12/18 21:23 Hgb 13.1 g/dL (12.0-16.0) 12/12/18 21:23 Hct 40.6 % (37-47) 12/12/18 21: MCV 87.7 fL (80-100) 12/12/18 21: MCH 28.3 pg (25-34) 12/12/18 21: MCHC 32.3 g/dL (32-36) 12/12/18 21: RDW Std Deviation 46.1 fL (36.4-46.3) 12/12/18: RDW Coeff of Tere 14.5 % (11.5-14.5) 12/12/18 21: Plt Count 295 K/uL (130-400) 12/12/18 21: MPV 9.6 fL (7.4-10.4) 12/12/18: Immature Gran % (Auto) 0.1 % 12/12/18 21: Neut % (Auto) 63.2 % 12/12/18: Lymph % (Auto) 24.7 % 12/12/18 21: [place] % (Auto) 11.2 % 12/12/18 21: Eos % (Auto) 0.7 % 12/12/18 21: Baso % (Auto) 0.1 % 12/12/18 21: Immature Gran # (Auto) 0.01 K/uL (0.00-0.02) 12/12/18 21: Neut # (Auto) 4.61 K/uL (1.4-6.5) 12/12/18: Lymph # (Auto) 1.80 K/uL (1.2-3.4) 12/12/18: [place] # (Auto) 0.82 K/uL (0.11-0.59) H 12/12/18 21: Eos # (Auto) 0.05 K/uL (0-0.5) 12/12/18 21: Baso # (Auto) 0.01 K/uL (0-0.2) 12/12/18 21: Sodium 140 mmol/L (136-145) 12/12/18 20:00 Potassium 4.4 mmol/L (3.5-5.1) 12/12/18 20:00 Chloride 107 mmol/L (98-107) 12/12/18 20:00 Carbon Dioxide 27 mmol/L (21-32) 12/12/18 20:00 Anion Gap 6.0 (3-11) 12/12/18 20:00 BUN 15 mg/dl (7-18) 12/12/18 20:00 Creatinine 1.02 mg/dl (0.6-1.2) 12/12/18 20:00 Est Cr Clr Drug Dosing 35.9 ml/min 12/12/18 20:00 Est GFR ( Amer) 58.1 12/12/18 20:00 Est GFR (Non-Af Amer) 50.1 12/12/18 20:00 BUN/Creatinine Ratio 14.4 (10-20) 12/12/18 20:00 Glucose 118 mg/dl (70-99) H 12/12/18 20:00 Calcium 10.3 mg/dl (8.5-10.1) H 12/12/18 20:00 Magnesium 2.2 mg/dl (1.8-2.4) 12/12/18 20:00 Total Bilirubin 0.3 mg/dl (0.2-1) 12/12/18 20:00 AST 17 U/L (15-37) 12/12/18 20:00 ALT 23 U/L (12-78) 12/12/18 20:00 Alkaline Phosphatase 111 U/L (45-117) 12/12/18 20:00 Total Creatine Kinase 29 U/L (26-192) 12/12/18 20:00 CK-MB (CK-2) < 1.0 ng/ml (0.5-3.6) 12/12/18 20:00 CK/CKMB % Calc TNP 12/12/18 20:00 Troponin I < 0.015 ng/ml (0-0.045) 12/12/18 20:00 Total Protein 8.0 gm/dl (6.4-8.2) 12/12/18 20:00 Albumin 3.6 gm/dl (3.4-5.0) 12/12/18 20:00 Globulin 4.4 gm/dl (2.5-4.0) H 12/12/18 20:00 Albumin/Globulin Ratio 0.8 (0.9-2) L 12/12/18 20:00 Lipase 126 U/L (73-393) 12/12/18 20:00 TSH 2.560 uIu/ml (0.300-4.500) 12/12/18 20:00 Diagnostic Findings Chest x-ray showed mild blunting of the bilateral costophrenic angles may be secondary to atelectasis or trace pleural effusions. EKG as per my interpretation : Rate 125, A. fib, LAD, LAFB, T wave flattening inferior leads
[2018-12-12] MEDS ORDERED: TRAMADOL HCL 50 MG TABLET PO PRN (23:56)
[2018-12-12] MEDS ORDERED: NITROGLYCERIN SL 0.4 MG/TAB TAB SL PRN (23:56)
[2018-12-12] MEDS ORDERED: PROMETHAZINE HCL 12.5 MG in SODIUM CHLORIDE 0.9% 50 ML IV PRN (23:56)
[2018-12-12] MEDS ORDERED: ACETAMINOPHEN 325 MG TAB PO PRN (23:56)
[2018-12-13] MEDS ORDERED: SODIUM CHLORIDE 0.45 % 1,000 ML IV STA (00:48)
[2018-12-13] MEDS: METOPROLOL SUCC 25MG EXT REL TAB PO SCH ×2 (04:36→20:42)
[2018-12-13 06:03] LABS: Basophils # (auto) 0.02 K/uL (0-0.2); Basophils % (auto) 0.3 %; Eosinophils # (auto) 0.08 K/uL (0-0.5); Hematocrit (blood only) 40.6 % (37-47); Hemoglobin 13.2 g/dL (12.0-16.0); Immature Granulocytes # (auto) 0.02 K/uL (0.00-0.02); Immature Granulocytes % (auto) 0.3 %; Lymphocytes # (auto) 2.54 K/uL (1.2-3.4); Lymphocytes % (auto) 32.5 %; Mean Corpuscular Hgb Conc 32.5 g/dL (32-36); Mean Platelet Volume 9.7 fL (7.4-10.4); Monocytes # (auto) 0.92 K/uL (0.11-0.59); Monocytes % (auto) 11.8 %; Neutrophils # (auto) 4.24 K/uL (1.4-6.5); Neutrophils % (auto) 54.1 %; Platelet Count 325 K/uL (130-400); RDW Coefficient of Variation 14.5 % (11.5-14.5); RDW Standard Deviation 47.2 fL (36.4-46.3); Red Blood Count 4.56 M/uL (4.2-5.4); White Blood Count 7.82 K/uL (4.8-10.8)
[2018-12-13 06:46] LABS: BUN Creatinine Ratio 21.8 (10-20); Blood Urea Nitrogen 14 mg/dl (7-18); Calcium 9.7 mg/dl (8.5-10.1); Carbon Dioxide 26 mmol/L (21-32); Chloride 108 mmol/L (98-107); Creatinine Clr Calc Pharmacy 56.4 ml/min; Est GFR (African American) 94.8; Est GFR (Non-African American) 81.8; Glucose 87 mg/dl (70-99); Potassium 3.7 mmol/L (3.5-5.1); Sodium 140 mmol/L (136-145)
[2018-12-13 06:50] LABS: Phosphorus 2.7 mg/dl (2.5-4.9); Troponin I < 0.015 ng/ml (0-0.045)
[2018-12-13] MEDS ORDERED: POTASSIUM CHLORIDE 20 MEQ TABCR PO STA (06:53)
[2018-12-13] MEDS: DOCUSATE SODIUM 100 MG CAP PO SCH (07:32)
[2018-12-13] MEDS: CEROVITE ADV FORMULA TAB PO SCH (07:32)
[2018-12-13] MEDS: PANTOprazole 40 MG TAB PO SCH (07:34)
[2018-12-13] MEDS: APIXABAN 5 MG TABLET PO SCH ×2 (07:34→20:43)
--- NOTE | 2018-12-13 08:30 | Hospitalist Progress Note ---
Date of Service December 13, 2018 Assessment & Plan (1) Atrial fibrillation with RVR: RECURRENT ATRIAL FIBRILLATION WITH RAPID VENTRICULAR RATE: S/P Recent Cardioversion last week (this was her third cardioversion) No signs of infection HR still high in 110s, on ambulation up to 120s -Home medications: Toprol XL 50 mg bid , Amiodarone 200 mg PO BID -On admission, Toprol XL was increased to 75 mg PO BID, Amiodarone was held. -As per outpatient records, if recurrence sotalol was a consideration. However, at this point cardiology would want to discuss with EP (not available over weekend) about next plan of action- starting new antiarrythmic agent (therefore amiodarone is on hold) vs reloading amiodarone vs Cardioversion -On Eliquis -Cardiology on board, appreciate inputs -Work up- Troponin x 2 negative; CXR- no active disease HTN -Stable -On Toprol XL 75 mg daily, Lasix 40 mg daily . DVT PROPHYLAXIS- Eliquis Full code DISPOSITION Medical mx in progress Expected discharge home when stable Subjective Patient does have complaint of fatigue. No palpitations, chest pain, shortness of breath, nausea, vomiting. No recent illnesses Telemetry monitoratrial fibrillation with heart rate in 110s. On ambulation heart rate does go up to 120s Physical Exam Constitutional: WD/WN, vitals as above Respiratory: normal respiratory effort, lungs clear to auscultation Cardiovascular: Rate/Rhythm: + tachycardic Extremities: no pedal edema and no edema Irregularly irregular rhythm Results & Data Vital Signs (Past 12 Hours) Vital Signs Temp Pulse Pulse Resp BP BP Pulse Ox 12/13/18 07:57 36.9 C 105 H 14 130/91 94 12/13/18 03:35 36.6 C 115 H 18 111/70 94 12/13/18 01:00 37.1 C 127 H 18 133/75 95 12/13/18 00:36 114 H 18 133/100 94 12/13/18 00:27 109 H 134/99 12/12/18 22:45 110 H 19 134/100 94 12/12/18 22:30 119 H 20 137/98 93 12/12/18 22:15 121 H 20 131/95 94 12/12/18 22:00 124 H 20 118/92 93 12/12/18 21:45 113 H 22 142/95 H 93 12/12/18 21:30 129 H 21 127/101 H 93 12/12/18 21:25 126 H 16 156/82 H 93 12/12/18 21:20 123 H 28 H 141/105 H 93 12/12/18 21:16 113 H 133/96 12/12/18 21:15 120 H 24 133/96 94 12/12/18 21:11 130 H 167/102 H 12/12/18 21:10 135 H 22 145/84 H 93 12/12/18 21:05 123 H 31 H 167/102 H 95 12/12/18 21:00 123 H 16 94 12/12/18 20:58 115 H 15 94 12/12/18 20:29 133 H 16 158/108 H 94
--- NOTE | 2018-12-13 08:55 | Cardiology Consultation ---
Date of Consultation December 13, 2018 Assessment & Plan (1) Atrial fibrillation with RVR: (2) Persistent atrial fibrillation: Unfortunately this patient has had breakthrough on amiodarone. In this situation amiodarone active medication for paroxysmal atrial arrhythmias. It is also unfortunate that it has a long half-life and able to take fairly substantial time to allow the drug to washout before starting additional antiarrhythmics. I had a long discussion with the patient. She is symptomatic in the atrial fibrillation with tiredness and fatigue. This is unfortunate as her long-term prognosis is not different whether she is in atrial fibrillation with a controlled rate or in a normal sinus mechanism. She will require lifelong anticoagulation regardless of if she is in a sinus mechanism or atrial fibrillation. Due to her symptoms, she would like to try additional antiarrhyth mics and potential repeat cardioversion. Another option would be to consider that she was underdosed with the amiodarone and increasing her reloading her with the drug prior to an additional cardioversion. At present we will leave her on Eliquis with rate control and hold the amiodarone. 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 Several years ago she moved from [place] to [place] to be closer to her daughter. She has had a recurrent atrial arrhythmias for many years. Recently she has had recurrent atrial fibrillation and has had 3 cardioversions in the past several months with the last being Saturday of this week. Each cardioversion was successful but the patient soon afterwards had a reoccurrence. She did well for 2 days this week and then started to have recurrent symptoms on . She states that yesterday morning she woke up and felt well with a normal heart rate. She went to the grocery store and came back and then had a reoccurrence of her atrial fibrillation. She came to the ER and has been admitted. She remains in atrial fibrillation with heart rate control. Amiodarone has been held. Allergies Allergy/AdvReac Type Severity Reaction Status Date / Time Bactrim Allergy Unknown . Unverified 08/01/17 17:48 Sulfa (Sulfonamide Allergy Unknown . Unverified 12/12/18 22:16 Antibiotics) sulfamethoxazole Allergy Unknown . Unverified 12/12/18 22:17 trimethoprim Allergy Unknown . Verified 12/12/18 22:17 Home Medications Home Medications Medication Instructions Recorded Confirmed Type calcium carbonate-vitamin D3 1 tab PO QAM 09/26/18 12/12/18 History [Os-Ethan 500 + D3] furosemide [Lasix] 40 mg PO DAILY PRN 09/26/18 12/12/18 History [id number] 1 tab PO QAM 09/26/18 12/12/18 History rosuvastatin [Crestor] 10 mg PO Q2D 09/26/18 12/12/18 History amiodarone 200 mg PO BID #60 tab 10/31/18 12/12/18 Rx apixaban [Eliquis] 5 mg PO BID #60 tab 10/31/18 12/12/18 Rx [id number] 1 tab PO BID #60 tab 10/31/18 12/12/18 Rx [Caltrate 600-D Plus Minerals] metoprolol succinate 50 mg PO BID #60 tab 10/31/18 12/12/18 Rx potassium chloride [Klor-Con M20] 20 meq PO DAILY #30 tab 10/31/18 12/12/18 Rx biotin 1 tab PO DAILY 12/09/18 12/12/18 History docusate sodium [Colace] 1 tab PO DAILY 12/09/18 12/12/18 History omeprazole 1 tab PO DAILY 12/09/18 12/12/18 History Patient History Medical History GERD (gastroesophageal reflux disease) HLD (hyperlipidemia) History of PSVT (paroxysmal supraventricular tachycardia) Macular degeneration Osteoporosis Surgical History History of History of appendectomy History of cataract extraction History of cholecystectomy History of lumbar laminectomy History of total hysterectomy with bilateral salpingo-oophorectomy (BSO) Family History Father , age 65 Heart attack Mother Coronary heart disease CHF (congestive heart failure) Sister Atrial fibrillation Social History Preferred Language: Sami Communication Ability: Effective Hearing Ability: Use of Hearing Aid Beliefs That Will Affect Care: None marital status: / Current Living Situation: Alone current occupational status: retired Other Information That Helps Us Care for You: No other: walks with cane, still drives Feels Safe at Home: Yes Safety Concerns: Feels Safe At This Time Smoking Status: Former smoker Cigarettes Per Day: 10 Hx Alcohol Use: No Hx Substance Use: No Review of Systems Review of Systems: Review of Systems: See HPI for pertinent positives. All other 10 point review of systems are negative. Physical Exam Physical Exam: General: no acute distress and stated age Head: normocephalic, no masses, lesions, tenderness or abnormalities Eyes: conjunctiva are pink and non-injected, sclera clear Neck: supple, no adenopathy, no bruits, normal jugular venous pulse, no hepatojugular reflux Chest: normal shape and normal respiratory effort Lungs: clear to auscultation and percussion Cardiac Exam: - irregular rate & rhythm, no murmurs gallops or rubs - normal S1, normal S2 Pulses: 2(+) throughout Abdomen: abdomen soft, non-tender, no abnormal masses and no hepatosplenomegaly Musculoskeletal: no gait disturbance, no joint inflammation, no deforming arthritis Extremities: no edema and no cyanosis Neuro: grossly normal exam Results & Data Vital Signs (Past 12 Hours) Vital Signs Temp Pulse Pulse Resp BP BP Pulse Ox 12/13/18 07:57 36.9 C 105 H 14 130/91 94 12/13/18 03:35 36.6 C 115 H 18 111/70 94 12/13/18 01:00 37.1 C 127 H 18 133/75 95 12/13/18 00:36 114 H 18 133/100 94 12/13/18 00:27 109 H 134/99 12/12/18 22:45 110 H 19 134/100 94 12/12/18 22:30 119 H 20 137/98 93 12/12/18 22:15 121 H 20 131/95 94 12/12/18 22:00 124 H 20 118/92 93 12/12/18 21:45 113 H 22 142/95 H 93 12/12/18 21:30 129 H 21 127/101 H 93 12/12/18 21:25 126 H 16 156/82 H 93 12/12/18 21:20 123 H 28 H 141/105 H 93 12/12/18 21:16 113 H 133/96 12/12/18 21:15 120 H 24 133/96 94 12/12/18 21:11 130 H 167/102 H 12/12/18 21:10 135 H 22 145/84 H 93 12/12/18 21:05 123 H 31 H 167/102 H 95 12/12/18 21:00 123 H 16 94 12/12/18 20:58 115 H 15 94 Laboratory Results Laboratory Results - last 24 hr 12/12/18 12/12/18 12/13/18 20:00 21:23 05:15 WBC 7.30 7.82 RBC 4.63 4.56 Hgb 13.1 13.2 Hct 40.6 40.6 MCV 87.7 89.0 MCH 28.3 28.9 MCHC 32.3 32.5 RDW Std Deviation 46.1 47.2 H RDW Coeff of Tere 14.5 14.5 Plt Count 295 325 MPV 9.6 9.7 Immature Gran % (Auto) 0.1 0.3 Neut % (Auto) 63.2 54.1 Lymph % (Auto) 24.7 32.5 [place] % (Auto) 11.2 11.8 Eos % (Auto) 0.7 1.0 Baso % (Auto) 0.1 0.3 Immature Gran # (Auto) 0.01 0.02 Neut # (Auto) 4.61 4.24 Lymph # (Auto) 1.80 2.54 [place] # (Auto) 0.82 H 0.92 H Eos # (Auto) 0.05 0.08 Baso # (Auto) 0.01 0.02 Sodium 140 Potassium 4.4 Chloride 107 Carbon Dioxide 27 Anion Gap 6.0 BUN 15 Creatinine 1.02 Est Cr Clr Drug Dosing 35.9 Est GFR ( Amer) 58.1 Est GFR (Non-Af Amer) 50.1 BUN/Creatinine Ratio 14.4 Glucose 118 H Calcium 10.3 H Phosphorus Magnesium 2.2 Total Bilirubin 0.3 AST 17 ALT 23 Alkaline Phosphatase 111 Total Creatine Kinase 29 CK-MB (CK-2) < 1.0 CK/CKMB % Calc TNP Troponin I < 0.015 Total Protein 8.0 Albumin 3.6 Globulin 4.4 H Albumin/Globulin Ratio 0.8 L Lipase 126 TSH 2.560 12/13/18 05:15 WBC RBC Hgb Hct MCV MCH MCHC RDW Std Deviation RDW Coeff of Tere Plt Count MPV Immature Gran % (Auto) Neut % (Auto) Lymph % (Auto) [place] % (Auto) Eos % (Auto) Baso % (Auto) Immature Gran # (Auto) Neut # (Auto) Lymph # (Auto) [place] # (Auto) Eos # (Auto) Baso # (Auto) Sodium 140 Potassium 3.7 D Chloride 108 H Carbon Dioxide 26 Anion Gap 6.0 BUN 14 Creatinine 0.63 D Est Cr Clr Drug Dosing 56.4 Est GFR ( Amer) 94.8 Est GFR (Non-Af Amer) 81.8 BUN/Creatinine Ratio 21.8 H Glucose 87 Calcium 9.7 Phosphorus 2.7 Magnesium Total Bilirubin AST ALT Alkaline Phosphatase Total Creatine Kinase CK-MB (CK-2) CK/CKMB % Calc Troponin I < 0.015 Total Protein Albumin Globulin Albumin/Globulin Ratio Lipase TSH Medications Administered Current Inpatient Medications Acetaminophen (Tylenol) 650 mg PO Q4H PRN PRN Reason: Pain or Fever Stop: 01/11/19 23:55 Apixaban (Eliquis) 5 mg PO BID JAREK Stop: 01/12/19 08:59 Last Admin: 12/13/18 07:34 Dose: 5 mg Documented by: Docusate Sodium (Colace) 100 mg PO DAILY JAREK Stop: 01/12/19 08:59 Last Admin: 12/13/18 07:32 Dose: 100 mg Documented by: Promethazine HCl 12.5 mg/ (Sodium Chloride) 50.5 mls @ 202 mls/hr IV Q6H PRN PRN Reason: Nausea And Vomiting Stop: 01/11/19 23:55 Sodium Chloride (1/2 Nss) 1,000 mls @ 75 mls/hr IV .[id number] STA Stop: 12/13/18 14:07 Last Admin: 12/13/18 02:14 Dose: 75 mls/hr Documented by: Metoprolol Succinate (Toprol Xl) 75 mg PO BID [facility] Stop: 01/12/19 03:14 Last Admin: 12/13/18 04:36 Dose: Not Given Documented by: Metoprolol Succinate (Toprol Xl) 75 mg PO TODAY@0900 ONE; Protocol Stop: 12/13/18 09:01 Last Admin: 12/13/18 07:35 Dose: 75 mg Documented by: Multivitamins/Minerals (Multivitamin W/ Minerals Tab) 1 tab PO QAM [facility] Stop: 01/12/19 08:59 Last Admin: 12/13/18 07:32 Dose: 1 tab Documented by: Nitroglycerin (Nitrostat) 0.4 mg SL UD PRN PRN Reason: Chest Pain Stop: 01/11/19 23:55 Pantoprazole Sodium (Protonix) 40 mg PO DAILY JAREK Stop: 01/12/19 08:59 Last Admin: 12/13/18 07:34 Dose: 40 mg Documented by: Potassium Chloride (Klor-Con M20) 20 meq PO DAILY JAREK Stop: 01/12/19 08:59 Rosuvastatin Calcium (Crestor) 10 mg PO Q48H JAREK Stop: 01/13/19 08:59 Tramadol HCl (Ultram) 25 mg PO Q4H PRN PRN Reason: Pain Stop: 01/11/19 23:55
[2018-12-13] MEDS ORDERED: METOPROLOL SUCC 50MG EXT REL TAB PO SCH (09:00)
[2018-12-13] MEDS ORDERED: METOPROLOL SUCC 25MG EXT REL TAB PO ONE (09:00)
[2018-12-13] MEDS: POTASSIUM CHLORIDE 20 MEQ TABCR PO SCH (10:12)
[2018-12-14 07:04] LABS: BUN Creatinine Ratio 26.5 (10-20); Calcium 9.7 mg/dl (8.5-10.1); Creatinine Clr Calc Pharmacy 58.9 ml/min; Est GFR (African American) 96.3; Est GFR (Non-African American) 83.1; Magnesium 2.2 mg/dl (1.8-2.4); Potassium 3.9 mmol/L (3.5-5.1)
[2018-12-14] MEDS: ROSUVASTATIN CALCIUM 10 MG TAB PO SCH ×2 (07:38→10:40)
[2018-12-14] MEDS: APIXABAN 5 MG TABLET PO SCH (07:38)
[2018-12-14] MEDS: DOCUSATE SODIUM 100 MG CAP PO SCH (07:39)
[2018-12-14] MEDS: METOPROLOL SUCC 25MG EXT REL TAB PO SCH (07:39)
[2018-12-14] MEDS: CEROVITE ADV FORMULA TAB PO SCH (07:39)
[2018-12-14] MEDS: PANTOprazole 40 MG TAB PO SCH (07:39)
[2018-12-14] MEDS: POTASSIUM CHLORIDE 20 MEQ TABCR PO SCH (07:39)
[2018-12-14] MEDS ORDERED: AMIODARONE 200 MG TAB PO ONE (10:21)
--- NOTE | 2018-12-14 10:30 | Cardiology Progress Note ---
Date of Service December 14, 2018 Assessment & Plan (1) Atrial fibrillation with RVR: (2) Persistent atrial fibrillation: The patient converted to normal sinus rhythm early this morning. I think it is okay for her to be discharged home and I will make arrangements for her to see electrophysiology as an outpatient this week. I will restart her amiodarone and she should continue amiodarone 200 mg twice daily until she is seen by electrophysiology. All her other medications should remain the same occluding metoprolol at 50 mg twice daily. Subjective To our surprise. The patient converted to normal sinus rhythm early this morning. She feels well and wants to go home. Review of Systems Review of Systems: All systems reviewed & are unremarkable except as noted in HPI & below Unchanged Physical Exam Physical Exam: General: no acute distress and stated age Head: normocephalic, no masses, lesions, tenderness or abnormalities Eyes: conjunctiva are pink and non-injected, sclera clear Neck: supple, no adenopathy, no bruits, normal jugular venous pulse, no hepatojugular reflux Chest: normal shape and normal respiratory effort Lungs: clear to auscultation and percussion Cardiac Exam: - regular rate & rhythm, no murmurs gallops or rubs - normal S1, normal S2 Pulses: 2(+) throughout Abdomen: abdomen soft, non-tender, no abnormal masses and no hepatosplenomegaly Musculoskeletal: no gait disturbance, no joint inflammation, no deforming arthritis Extremities: no edema and no cyanosis Neuro: grossly normal exam Results & Data Vital Signs (Past 12 Hours) Vital Signs Temp Pulse Pulse Resp BP Pulse Ox 12/14/18 08:00 61 12/14/18 07:41 36.8 C 65 18 146/83 H 96 12/14/18 04:47 36.5 C 60 20 130/76 95 12/13/18 23:50 36.4 C L 104 H 22 121/85 95 Laboratory Results Laboratory Results - last 24 hr 12/14/18 06:10 Sodium 142 Potassium 3.9 Chloride 112 H Carbon Dioxide 23 Anion Gap 7.0 BUN 16 Creatinine 0.60 Est Cr Clr Drug Dosing 58.9 Est GFR ( Amer) 96.3 Est GFR (Non-Af Amer) 83.1 BUN/Creatinine Ratio 26.5 H Glucose 82 Calcium 9.7 Magnesium 2.2 Medications Administered Current Inpatient Medications Acetaminophen (Tylenol) 650 mg PO Q4H PRN PRN Reason: Pain or Fever Stop: 01/11/19 23:55 Amiodarone HCl (Cordarone) 200 mg PO BID [facility] Stop: 01/13/19 20:59 Apixaban (Eliquis) 5 mg PO BID [facility] Stop: 01/12/19 08:59 Last Admin: 12/14/18 07:38 Dose: 5 mg Documented by: Docusate Sodium (Colace) 100 mg PO DAILY [facility] Stop: 01/12/19 08:59 Last Admin: 12/14/18 07:39 Dose: 100 mg Documented by: Promethazine HCl 12.5 mg/ (Sodium Chloride) 50.5 mls @ 202 mls/hr IV Q6H PRN PRN Reason: Nausea And Vomiting Stop: 01/11/19 23:55 Metoprolol Succinate (Toprol Xl) 75 mg PO BID [facility] Stop: 01/12/19 03:14 Last Admin: 12/14/18 07:39 Dose: 75 mg Documented by: Multivitamins/Minerals (Multivitamin W/ Minerals Tab) 1 tab PO QAM [facility] Stop: 01/12/19 08:59 Last Admin: 12/14/18 07:39 Dose: 1 tab Documented by: Nitroglycerin (Nitrostat) 0.4 mg SL UD PRN PRN Reason: Chest Pain Stop: 01/11/19 23:55 Pantoprazole Sodium (Protonix) 40 mg PO DAILY [facility] Stop: 01/12/19 08:59 Last Admin: 12/14/18 07:39 Dose: 40 mg Documented by: Potassium Chloride (Klor-Con M20) 20 meq PO DAILY [facility] Stop: 01/12/19 08:59 Last Admin: 12/14/18 07:39 Dose: 20 meq Documented by: Rosuvastatin Calcium (Crestor) 10 mg PO Q48H [facility] Stop: 01/13/19 08:59 Tramadol HCl (Ultram) 25 mg PO Q4H PRN PRN Reason: Pain Stop: 01/11/19 23:55
--- NOTE | 2018-12-14 11:00 | Hospitalist Progress Note ---
Date of Service December 14, 2018 Assessment & Plan (1) Atrial fibrillation with RVR: RECURRENT ATRIAL FIBRILLATION WITH RAPID VENTRICULAR RATE: Now in NSR (spontaneously converted) S/P Recent Cardioversion last week (this was her third cardioversion) Spontaneously converted to NSR today morning. -Home medications: Toprol XL 50 mg bid , Amiodarone 200 mg PO BID -Current meds: Toprol XL was increased to 75 mg PO BID, Amiodarone was held. -Anticoagulation: On Eliquis as at home -Discussed with cardiology - Plan is to discharge her on her home regimen: Toprol XL 50 mg BID, Amiodarone 200 mg BID and follow up with EP outpatient -Work up- Troponin x 2 negative; CXR- no active disease HTN -Stable -Continue with Toprol XL, Lasix . DVT PROPHYLAXIS- Eliquis Full code DISPOSITION Eager to be discharged Cleared by cardiology for discharge. Discussed with him about discharge plan Needs to follow-up with EP outpatient Okay to discharge home today Subjective Patient is doing well. Asymptomatic. Did convert to normal sinus rhythm today morning spontaneously. Denies any palpitations, chest pain, fever, chills, cough, nausea, vomiting. Feels much better and eager to be discharged secured entrance monitor reviewednormal sinus rhythm with heart rate in 60s Physical Exam Constitutional: WD/WN, vitals as above Cardiovascular: RRR, no murmur, no edema Extremities: no pedal edema and no edema Results & Data Vital Signs (Past 12 Hours) Vital Signs Temp Pulse Pulse Resp BP Pulse Ox 12/14/18 08:00 61 12/14/18 07:41 36.8 C 65 18 146/83 H 96 12/14/18 04:47 36.5 C 60 20 130/76 95 12/13/18 23:50 36.4 C L 104 H 22 121/85 95
--- NOTE | 2018-12-14 11:05 | Discharge Summary ---
Date of Service December 14, 2018 Admission HPI Per Admitting Provider History obtained from patient, family, and records. Medical history significant for A. fib/a flutter status post cardioversion on Eliquis, hypertension, hyperlipidemia, past tobacco abuse. Recent confinement last month under cardiology service for atrial flutter RVR. Amiodarone initiated, subsequent cardioversion done. Patient seen at [facility] environmental health manager's office last week for symptomatic recurrent atrial flutter. Outpatient cardioversion done last December 09, 2018. 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 No actual chest pain. Patient compliant with home medications. Denies unusual stress at home. Admits to not being to drink as much water today. At the ER, patient noted to be in rapid A. fib, cardiac rate 110-130s. IV Lopressor administered at the ER. 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 Hypertension Discharge Exam Constitutional WD/WN, vitals as above Respiratory normal respiratory effort, lungs clear to auscultation Cardiovascular RRR, no murmur, no edema Extremities: no pedal edema and no edema Discharge Data Allergies Allergy/AdvReac Type Severity Reaction Status Date / Time Bactrim Allergy Unknown . Unverified 08/01/17 17:48 Sulfa (Sulfonamide Allergy Unknown . Unverified 12/12/18 22:16 Antibiotics) sulfamethoxazole Allergy Unknown . Unverified 12/12/18 22:17 trimethoprim Allergy Unknown . Verified 12/12/18 22:17 Consultations 12/12/18 21:48 ED Decision to Admit Stat 12/12/18 23:56 Consult Cardiology Routine Hospital Course (1) Atrial fibrillation with RVR: RECURRENT ATRIAL FIBRILLATION WITH RAPID VENTRICULAR RATE: Now in NSR (spontaneously converted) S/P Recent Cardioversion last week (this was her third cardioversion) Spontaneously converted to NSR today morning. -Home medications: Toprol XL 50 mg bid , Amiodarone 200 mg PO BID -Current meds: Toprol XL was increased to 75 mg PO BID, Amiodarone was held. -Anticoagulation: On Eliquis as at home -Discussed with cardiology - Plan is to discharge her on her home regimen: Toprol XL 50 mg BID, Amiodarone 200 mg BID and follow up with EP outpatient -Work up- Troponin x 2 negative; CXR- no active disease HTN -Stable -Continue with Toprol XL, Lasix . DVT PROPHYLAXIS- Eliquis Full code DISPOSITION Eager to be discharged Cleared by cardiology for discharge. Discussed with him about discharge plan Needs to follow-up with EP outpatient Okay to discharge home today Total Time Total Time Spent Total Time Spent (In Minutes): 35 minutes Discharge Plan Discharge Items Patient Disposition: Home - Self-Care Reason For Visit: RECURRENT AF Discharge Diagnosis: Recurrent atrial fibrillation with rapid ventricular rate Discharge Goals: Improve disease control Activity: Resume your previous activity Non-emergency contact: Primary Care Provider Call non-emergency contact if: your symptoms worsen Follow-up/Referrals: Morgan Llamas MD [Primary Care Provider] - (We will call you for post hospital follow-up appointment date/time.) Juana Montes DO [Physician] - Diet: Low Sodium (2gm) Addtl Provider Instructions: You were admitted to the hospital for recurrent atrial fibrillation with rapid ventricular rate. Your rhythm spontaneously converted to normal sinus rhythm. Medication changes No changes recommended to your medication regimen. Continue to take prior to home medications with the same dose Follow-up with electrophysiology outpatient Prescriptions: Continued amiodarone 200 mg Tablet 200 mg PO BID Qty: 60 RF: 3 metoprolol succinate 50 mg Tablet Extended Release 24 Hr 50 mg PO BID Qty: 60 RF: 3 potassium chloride [Klor-Con M20] 20 mEq Tablet,Er Particles/Crystals 20 meq PO DAILY Qty: 30 RF: 1 Caltrate 600-D Plus Minerals 600 mg calcium- 800 unit-50 mg Tablet 1 tab PO BID Qty: 60 RF: 0 Eliquis 5 mg Tablet 5 mg PO BID Qty: 60 RF: 1 calcium carbonate-vitamin D3 [Os-Ethan 500 + D3] 500 mg(1,250mg) -200 unit Tablet 1 tab PO QAM RF: 0 furosemide [Lasix] 40 mg Tablet 40 mg PO DAILY PRN (Reason: Fluid Retention) RF: 0 [id number]-fobyhkvj-ogyybu Tablet 1 tab PO QAM RF: 0 rosuvastatin [Crestor] 10 mg Tablet 10 mg PO Q2D RF: 0 docusate sodium [Colace] 100 mg Capsule 1 tab PO DAILY RF: 0 omeprazole 20 mg Capsule,Delayed Release(Dr/Ec) 1 tab PO DAILY RF: 0 biotin 5,000 mcg Tablet,Disintegrating 1 tab PO DAILY RF: 0 Stand-Alone Forms: [facility] Discharge Orders: Discharge Order (Routine); Ordered 12/14/18 Ordered By: Matilde Poon Admission Data Admit Date/Time: 12/12/18 23:56 Attending Provider: Matilde Poon Admit Provider: Matilde Poon Primary Care Provider: Morgan Llamas Other Providers: Kiko Redman ; Issa Fairchild ; Stanislaw Stephens ; Mayur Castillo ; Pedro Lopez ; Julio C Pennington ; Carter Nixon ; Avis Rodriguez ; Juana Montes Service: Telemetry Other Pending Studies at Discharge: No
--- NOTE | 2018-12-14 20:39 | Emergency Department Note ---
Entered by Ramy Hyman acting as a scribe for Atilio Jay MD History of Present Illness General Chief complaint: Cardiac Assessment Stated complaint: atrial fib Time Seen by Provider: 12/12/18 20:42 Source: patient History of Present Illness Onset (ago): hour(s) (this afternoon) Location: chest (heart) Pain Consistency: + other (persistent) Quality: + other (atrial fibrillation) Associated symptoms: + diaphoresis and + other (history of cardioversion) The patient is an 83 year old female who presents to the Emergency Room with complaints of persistent atrial fibrillation beginning this afternoon. The patient reports that she has been cardioverted for A-fib in the past, most recently in the past week as well as a couple of times last month. She follows Dr. [facility] and takes Eliquis, stating that she has not missed any doses. The patient states that she is able to tell when she enters A-fib, noting associated diaphoresis. Today she called her crepe machine operator and was referred to the ER. She notes that after her recent cardioversion she was taken off of her Cardizem. She takes metoprolol. She states that she also takes Amiodarone, with a possible plan to wean her off of this and start her on a new medication. Home Medications Home Medications Medication Instructions Recorded Confirmed Type calcium carbonate-vitamin D3 1 tab PO QAM 09/26/18 12/12/18 History [Os-Ethan 500 + D3] furosemide [Lasix] 40 mg PO DAILY PRN 09/26/18 12/12/18 History ssydfweawmqf-[id number]-hgdknf 1 tab PO QAM 09/26/18 12/12/18 History rosuvastatin [Crestor] 10 mg PO Q2D 09/26/18 12/12/18 History Caltrate 600-D Plus Minerals 1 tab PO BID #60 tab 10/31/18 12/12/18 Rx Eliquis 5 mg PO BID #60 tab 10/31/18 12/12/18 Rx amiodarone 200 mg PO BID #60 tab 10/31/18 12/12/18 Rx metoprolol succinate 50 mg PO BID #60 tab 10/31/18 12/12/18 Rx potassium chloride [Klor-Con M20] 20 meq PO DAILY #30 tab 10/31/18 12/12/18 Rx biotin 1 tab PO DAILY 12/09/18 12/12/18 History docusate sodium [Colace] 1 tab PO DAILY 12/09/18 12/12/18 History omeprazole 1 tab PO DAILY 12/09/18 12/12/18 History Allergies Allergy/AdvReac Type Severity Reaction Status Date / Time Bactrim Allergy Unknown . Unverified 08/01/17 17:48 Sulfa (Sulfonamide Allergy Unknown . Unverified 12/12/18 22:16 Antibiotics) sulfamethoxazole Allergy Unknown . Unverified 12/12/18 22:17 trimethoprim Allergy Unknown . Verified 12/12/18 22:17 Past Med/Surg History Medical History GERD (gastroesophageal reflux disease) HLD (hyperlipidemia) History of PSVT (paroxysmal supraventricular tachycardia) Macular degeneration Osteoporosis Surgical History History of History of appendectomy History of cataract extraction History of cholecystectomy History of lumbar laminectomy History of total hysterectomy with bilateral salpingo-oophorectomy (BSO) Family History Father , age 65 Heart attack Mother Coronary heart disease CHF (congestive heart failure) Sister Atrial fibrillation Social History Preferred Language: French Communication Ability: Effective Hearing Ability: Use of Hearing Aid Beliefs That Will Affect Care: None marital status: / Current Living Situation: Alone current occupational status: retired Other Information That Helps Us Care for You: No other: walks with cane, still drives Feels Safe at Home: Yes Safety Concerns: Feels Safe At This Time Smoking Status: Former smoker Cigarettes Per Day: 10 Hx Alcohol Use: No Hx Substance Use: No Review of Systems See HPI for pertinent positives & negatives. and A total of 10 systems reviewed and were otherwise negative Physical Exam Vital Signs Vital Signs - 24 hr 12/13/18 23:50 12/14/18 04:47 12/14/18 07:41 Temperature 36.4 C L 36.5 C 36.8 C Temperature Source Oral Oral Oral Pulse Rate Pulse Rate [Bilateral] 104 H 60 65 Pulse Rhythm [Bilateral] Pulse Strength [Bilateral] Respiratory Rate 22 20 18 Respiratory Effort / Characteristics Respiratory Depth Normal Blood Pressure [Right Arm] 121/85 130/76 146/83 H Blood Pressure Mean [Right Arm] 97 94 104 Blood Pressure Position [Right Arm] Lying Lying Pulse Oximetry 95 95 96 Oxygen Delivery Method Room Air Room Air Room Air 12/14/18 08:00 12/14/18 10:53 12/14/18 12:15 Temperature 36.7 C 36.7 C Temperature Source Oral Pulse Rate 61 Pulse Rate [Bilateral] 64 64 Pulse Rhythm [Bilateral] Regular Pulse Strength [Bilateral] Normal Respiratory Rate 16 16 Respiratory Effort / Characteristics Non-Labored Respiratory Depth Normal Blood Pressure [Right Arm] 106/65 106/65 Blood Pressure Mean [Right Arm] 78 Blood Pressure Position [Right Arm] Sitting Pulse Oximetry 95 95 Oxygen Delivery Method Room Air GENERAL: Awake, alert, well-appearing, in no acute distress HENT: Normocephalic, atraumatic. Oropharynx unremarkable. EYES: Normal conjunctiva. Sclera non-icteric. NECK: Supple. No nuchal rigidity. FROM. No JVD. RESPIRATORY: Clear to auscultation. CARDIAC: Tachycardic rate, irregular rhythm. Extremities warm and well perfused. Pulses equal. ABDOMEN: Soft, non-distended. No tenderness to palpation. No rebound or guarding. No masses. RECTAL: Deferred. MUSCULOSKELETAL: Chest examination reveals no tenderness. The back is symmetr ical on inspection without obvious abnormality. There is no CVA tenderness to palpation. No joint edema. LOWER EXTREMITIES: Calves are equal size bilaterally and non-tender. No edema. No discoloration. NEURO: Normal sensorium. No sensory or motor deficits noted. SKIN: No rash or jaundice noted. Course 2042: The patient was evaluated in room C6. A complete history and physical examination were performed. 2129: The patient has showed no real improvement after three doses of Lopressor. 2154: I consulted Dr. Feroz Davila Hospitalist. The patient will be reevaluated for hospitalization. Administered Medications Discontinued Medications Amiodarone HCl (Cordarone) 200 mg PO NOW ONE Stop: 12/14/18 10:22 Last Admin: 12/14/18 10:40 Dose: 200 mg Documented by: [id number] Apixaban (Eliquis) 5 mg PO BID JAREK Stop: 01/12/19 08:59 Last Admin: 12/14/18 07:38 Dose: 5 mg Documented by: [id number] Admin: 12/13/18 20:43 Dose: 5 mg Documented by: [id number] Admin: 12/13/18 07:34 Dose: 5 mg Documented by: [id number] Docusate Sodium (Colace) 100 mg PO DAILY [facility] Stop: 01/12/19 08:59 Last Admin: 12/14/18 07:39 Dose: 100 mg Documented by: [id number] Admin: 12/13/18 07:32 Dose: 100 mg Documented by: [id number] Sodium Chloride (Nss) 500 mls @ 500 mls/hr IV .Q1H ONE Stop: 12/12/18 23:12 Last Infusion: 12/12/18 23:40 Dose: 0 mls/hr Documented by: [id number] Admin: 12/12/18 22:46 Dose: 500 mls/hr Documented by: [id number] Sodium Chloride (Nss) 500 mls @ 500 mls/hr IV .Q1H ONE Stop: 12/13/18 00:51 Last Infusion: 12/13/18 02:17 Dose: 0 mls/hr Documented by: [id number] Admin: 12/13/18 00:10 Dose: 500 mls/hr Documented by: [id number] Sodium Chloride (1/2 Nss) 1,000 mls @ 75 mls/hr [id number] Stop: 12/13/18 14:07 Last Infusion: 12/13/18 14:58 Dose: 0 mls/hr Documented by: [id number] Admin: 12/13/18 02:14 Dose: 75 mls/hr Documented by: [id number] Metoprolol Succinate (Toprol Xl) 75 mg PO BID [facility] Stop: 01/12/19 03:14 Last Admin: 12/14/18 07:39 Dose: 75 mg Documented by: [id number] Admin: 12/13/18 20:42 Dose: 75 mg Documented by: [id number] Admin: 12/13/18 04:36 Dose: Not Given Documented by: [id number] Metoprolol Succinate (Toprol Xl) 75 mg PO TODAY@0900 ONE; Protocol Stop: 12/13/18 09:01 Last Admin: 12/13/18 07:35 Dose: 75 mg Documented by: [id number] Metoprolol Tartrate (Lopressor) 5 mg IV Q5M PRN PRN Reason: Tachycardia Stop: 01/11/19 20:53 Last Admin: 12/12/18 21:16 Dose: 5 mg Documented by: [id number] Admin: 12/12/18 21:11 Dose: 5 mg Documented by: [id number] Admin: 12/12/18 21:05 Dose: 5 mg Documented by: [id number] Metoprolol Tartrate (Lopressor) 50 mg PO NOW STA Stop: 12/12/18 22:13 Last Admin: 12/12/18 22:42 Dose: Not Given Documented by: [id number] Metoprolol Tartrate (Lopressor) 2.5 mg IV NOW STA Stop: 12/12/18 23:53 Last Admin: 12/13/18 00:27 Dose: 2.5 mg Documented by: [id number] Multivitamins/Minerals (Multivitamin W/ Minerals Tab) 1 tab PO QAM [facility] Stop: 01/12/19 08:59 Last Admin: 12/14/18 07:39 Dose: 1 tab Documented by: [id number] Admin: 12/13/18 07:32 Dose: 1 tab Documented by: [id number] Pantoprazole Sodium (Protonix) 40 mg PO DAILY [facility] Stop: 01/12/19 08:59 Last Admin: 12/14/18 07:39 Dose: 40 mg Documented by: [id number] Admin: 12/13/18 07:34 Dose: 40 mg Documented by: [id number] Potassium Chloride (Klor-Con M20) 20 meq PO DAILY [facility] Stop: 01/12/19 08:59 Last Admin: 12/14/18 07:39 Dose: 20 meq Documented by: [id number] Admin: 12/13/18 10:12 Dose: 20 meq Documented by: [id number] Potassium Chloride (Klor-Con M20) 40 meq PO NOW STA Stop: 12/13/18 06:54 Last Admin: 12/13/18 07:32 Dose: 40 meq Documented by: [id number] Rosuvastatin Calcium (Crestor) 10 mg PO Q48H JAREK Stop: 01/13/19 08:59 Last Admin: 12/14/18 10:40 Dose: Not Given Documented by: [id number] Medical Decision Making Differential Diagnosis Differential diagnosis includes: cardiac ischemia, aortic dissection, pulmonary embolism, pneumonia, pneumothorax, musculoskeletal, infections, pericarditis, myocarditis, esophageal rupture, gastrointestinal, as well as others were entertained. Medical Records Attestation: I reviewed the patient's medical records. Home Medications Current Medication List: was personally reviewed by me Laboratory Data Attestation: I reviewed the patient's lab results. Result diagrams: 12/13/18 05:15 12/14/18 06:10 Lab Results 12/12/18 12/12/18 12/13/18 Range/Units 20:00 21:23 05:15 WBC 7.30 7.82 (4.8-10.8) K/uL RBC 4.63 4.56 (4.2-5.4) M/uL Hgb 13.1 13.2 (12.0-16.0) g/dL Hct 40.6 40.6 (37-47) % MCV 87.7 89.0 (80-100) fL MCH 28.3 28.9 (25-34) pg MCHC 32.3 32.5 (32-36) g/dL RDW Std Deviation 46.1 47.2 H (36.4-46.3) fL RDW Coeff of Tere 14.5 14.5 (11.5-14.5) % Plt Count 295 325 (130-400) K/uL MPV 9.6 9.7 (7.4-10.4) fL Immature Gran % (Auto) 0.1 0.3 % Neut % (Auto) 63.2 54.1 % Lymph % (Auto) 24.7 32.5 % [place] % (Auto) 11.2 11.8 % Eos % (Auto) 0.7 1.0 % Baso % (Auto) 0.1 0.3 % Immature Gran # (Auto) 0.01 0.02 (0.00-0.02) K/uL Neut # (Auto) 4.61 4.24 (1.4-6.5) K/uL Lymph # (Auto) 1.80 2.54 (1.2-3.4) K/uL [place] # (Auto) 0.82 H 0.92 H (0.11-0.59) K/uL Eos # (Auto) 0.05 0.08 (0-0.5) K/uL Baso # (Auto) 0.01 0.02 (0-0.2) K/uL Sodium 140 (136-145) mmol/L Potassium 4.4 (3.5-5.1) mmol/L Chloride 107 (98-107) mmol/L Carbon Dioxide 27 (21-32) mmol/L Anion Gap 6.0 (3-11) BUN 15 (7-18) mg/dl Creatinine 1.02 (0.6-1.2) mg/dl Est Cr Clr Drug Dosing 35.9 ml/min Est GFR ( Amer) 58.1 Est GFR (Non-Af Amer) 50.1 BUN/Creatinine Ratio 14.4 (10-20) Glucose 118 H (70-99) mg/dl Calcium 10.3 H (8.5-10.1) mg/dl Phosphorus (2.5-4.9) mg/dl Magnesium 2.2 (1.8-2.4) mg/dl Total Bilirubin 0.3 (0.2-1) mg/dl AST 17 (15-37) U/L ALT 23 (12-78) U/L Alkaline Phosphatase 111 (45-117) U/L Total Creatine Kinase 29 (26-192) U/L CK-MB (CK-2) < 1.0 (0.5-3.6) ng/ml CK/CKMB % Calc TNP Troponin I < 0.015 (0-0.045) ng/ml Total Protein 8.0 (6.4-8.2) gm/dl Albumin 3.6 (3.4-5.0) gm/dl Globulin 4.4 H (2.5-4.0) gm/dl Albumin/Globulin Ratio 0.8 L (0.9-2) Lipase 126 (73-393) U/L TSH 2.560 (0.300-4.500) uIu/ml 12/13/18 12/14/18 Range/Units 05:15 06:10 WBC (4.8-10.8) K/uL RBC (4.2-5.4) M/uL Hgb (12.0-16.0) g/dL Hct (37-47) % MCV (80-100) fL MCH (25-34) pg MCHC (32-36) g/dL RDW Std Deviation (36.4-46.3) fL RDW Coeff of Tere (11.5-14.5) % Plt Count (130-400) K/uL MPV (7.4-10.4) fL Immature Gran % (Auto) % Neut % (Auto) % Lymph % (Auto) % [place] % (Auto) % Eos % (Auto) % Baso % (Auto) % Immature Gran # (Auto) (0.00-0.02) K/uL Neut # (Auto) (1.4-6.5) K/uL Lymph # (Auto) (1.2-3.4) K/uL [place] # (Auto) (0.11-0.59) K/uL Eos # (Auto) (0-0.5) K/uL Baso # (Auto) (0-0.2) K/uL Sodium 140 142 (136-145) mmol/L Potassium 3.7 D 3.9 (3.5-5.1) mmol/L Chloride 108 H 112 H (98-107) mmol/L Carbon Dioxide 26 23 (21-32) mmol/L Anion Gap 6.0 7.0 (3-11) BUN 14 16 (7-18) mg/dl Creatinine 0.63 D 0.60 (0.6-1.2) mg/dl Est Cr Clr Drug Dosing 56.4 58.9 ml/min Est GFR ( Amer) 94.8 96.3 Est GFR (Non-Af Amer) 81.8 83.1 BUN/Creatinine Ratio 21.8 H 26.5 H (10-20) Glucose 87 82 (70-99) mg/dl Calcium 9.7 9.7 (8.5-10.1) mg/dl Phosphorus 2.7 (2.5-4.9) mg/dl Magnesium 2.2 (1.8-2.4) mg/dl Total Bilirubin (0.2-1) mg/dl AST (15-37) U/L ALT (12-78) U/L Alkaline Phosphatase (45-117) U/L Total Creatine Kinase (26-192) U/L CK-MB (CK-2) (0.5-3.6) ng/ml CK/CKMB % Calc Troponin I < 0.015 (0-0.045) ng/ml Total Protein (6.4-8.2) gm/dl Albumin (3.4-5.0) gm/dl Globulin (2.5-4.0) gm/dl Albumin/Globulin Ratio (0.9-2) Lipase (73-393) U/L TSH (0.300-4.500) uIu/ml Imaging Data Radiologist's Impression: Radiology results as stated below per my review and the radiologist's interpretation: XR chest 1V portable HISTORY: 83 years-old Female Chest Pain acute atypical chest pain COMPARISON: Chest radiograph 10/06/2018 TECHNIQUE: Portable AP view of the chest FINDINGS: Cardiomediastinal and hilar silhouettes are within normal limits. There is no pneumothorax,, focal airspace consolidation or overt pulmonary edema. Mild blunting of the bilateral costophrenic angles is new from comparison. The bones of the chest appear grossly intact. IMPRESSION: Mild blunting of the bilateral costophrenic angles may be secondary to atelectasis or trace pleural effusions. The above report was generated using voice recognition software. It may contain grammatical, syntax or spelling errors. Electronically signed by: Nav Ferrell M.D. 12/12/2018 10:15 PM ECG Data Attestation: I personally reviewed and interpreted this ECG as follows: Indication: other (arrhythmia) Rate (beats per minute): 125 Rhythm: atrial fibrillation (with RVR) Findings: no ST depression and no ST elevation Blood Pressure Blood Pressure Findings: Elevated blood pressure Blood Pressure Disposition: further management by hospitalist MDM Narrative This is an 83-year-old female who presents emergency department complaining of atrial fibrillation. I will note that the patient's A. fib she has got into it multiple times. She is in A. fib with RVR here in the emergency department. She was given 3 doses of Lopressor for it. I did discuss the case with the hospitalist service who agreed to admit the patient. Patient and family were in agreement with the treatment plan. Impression & Plan Atrial fibrillation with RVR Discharge Plan Visit Data *Final* Discharge Date/Time: 12/13/18 00:39 Chief Complaint: Cardiac Assessment Stated Complaint: atrial fib ED Provider: Atilio Jay Discharge Problem: Atrial fibrillation with RVR Patient Disposition: Admitted As Inpatient Discharge Instructions Interventions: ED Discharge Assessment Last Done: 12/13/18 00:39 The scribe's documentation has been prepared under my direction and personally reviewed by me in its entirety. I confirm that the note above accurately reflects all work, treatment, procedures, and medical decision making performed by me.
[2018-12-14] MEDS ORDERED: AMIODARONE 200 MG TAB PO SCH (21:00)
== END 2018-12-14 13:33 | disposition home or self-care (01) | DRG 310 ==
LOC: ED 20:21 → SUATTDRO 23:56 → 2S 23:56

== ENCOUNTER 2020-02-23 12:34 | Inpatient (IN) ==
--- NOTE | 2020-02-23 13:24 | Emergency Department Note ---
History of Present Illness General Chief complaint: Abnormal Labs/Diagnostic Testing Stated complaint: LOWER IRON,WEAKNESS Time Seen by Provider: 02/23/20 12:46 Source: patient Mode of arrival: ambulatory Limitations: no limitations History of Present Illness Provider complaint: Anemia Maximum Pain Intensity: 0 This is a 84-year-old female who presents to the ED with a chief complaint of fe eling exhausted and weak over the past several months. She states that she had blood work done last Saturday that showed that her hemoglobin was 7.2. Her PCP put her on iron. She contacted her doctor about feeling short of breath with exertion and having exertional fatigue today and she was referred here. The patient is on Eliquis for A. fib. She denied having any blood in her stools. Denies any black stools. She has no other complaints at this time. Home Medications Home Medications Medication Instructions Recorded Confirmed Type calcium carbonate-vitamin D3 1 tab PO QAM 09/26/18 02/23/20 History [Os-Ethan 500 + D3] furosemide [Lasix] 40 mg PO DAILY PRN 09/26/18 02/23/20 History [id number]-jztthflk-pcwuuh 1 tab PO QAM 09/26/18 02/23/20 History rosuvastatin [Crestor] 10 mg PO Q2D 09/26/18 02/23/20 History Eliquis 5 mg PO BID #60 tab 10/31/18 02/23/20 Rx metoprolol succinate 50 mg PO BID #60 tab 10/31/18 02/23/20 Rx biotin 1 tab PO DAILY 12/09/18 02/23/20 History docusate sodium [Colace] 1 tab PO DAILY 12/09/18 02/23/20 History omeprazole 1 tab PO DAILY 12/09/18 02/23/20 History amiodarone 200 mg PO DAILY 02/23/20 02/23/20 History Allergies Allergy/AdvReac Type Severity Reaction Status Date / Time Bactrim Allergy Unknown . Unverified 08/01/17 17:48 Sulfa (Sulfonamide Allergy Unknown . Unverified 02/23/20 13:27 Antibiotics) sulfamethoxazole Allergy Unknown . Unverified 02/23/20 13:27 trimethoprim Allergy Unknown . Verified 02/23/20 13:27 Past Med/Surg History Medical History GERD (gastroesophageal reflux disease) History of PSVT (paroxysmal supraventricular tachycardia) HLD (hyperlipidemia) Macular degeneration Osteoporosis Surgical History History of appendectomy History of History of cataract extraction History of cholecystectomy History of lumbar laminectomy History of total hysterectomy with bilateral salpingo-oophorectomy (BSO) Family History Father , age 65 Myocardial infarction Mother Coronary heart disease CHF (congestive heart failure) Sister Atrial fibrillation Social History Preferred Language: Macedonian Communication Ability: Effective Hearing Ability: Use of Hearing Aid Bursar Required: No Beliefs That Will Affect Care: None marital status: / Current Living Situation: Alone current occupational status: retired other: walks with cane, still drives Feels Safe at Home: Yes Smoking Status: Former smoker Cigarettes Per Day: 10 ; Hx Alcohol Use: No Hx Substance Use: No Review of Systems A total of 10 systems reviewed and were otherwise negative Physical Exam Vital Signs Vital Signs - 24 hr 02/23/20 12:42 02/23/20 13:11 Temperature 37.2 C Temperature Source Oral Pulse Rate 66 Respiratory Rate 20 Respiratory Effort / Characteristics Non-Labored Respiratory Depth Normal Blood Pressure 111/54 L Blood Pressure Mean 73 Pulse Oximetry 97 96 Oxygen Delivery Method Room Air Room Air Sepsis Recent Fever Within 48 Hours No Sepsis Action Taken by Nursing No Action Required CONSTITUTIONAL/VITAL SIGNS: Reviewed / noted above. GENERAL: Non-toxic in appearance. INTEGUMENTARY: Warm, dry, and pale. HEAD: Normocephalic. EYES: without scleral icterus or trauma. ENT/OROPHARYNX: clear and moist. LYMPHADENOPATHY/NECK: Is supple without lymphadenopathy or meningismus. RESPIRATORY: Lungs clear and equal. CARDIOVASCULAR: Regular rate and rhythm. GI/ABDOMEN: Soft and nontender. No organomegaly or pulsatile mass. No rebound or guarding. Normal bowel sounds. EXTREMITIES: Warm and well perfused. BACK: No CVA tenderness. NEUROLOGICAL: Intact without focal deficits. PSYCHIATRIC: normal affect. MUSCULOSKELETAL: Normally developed with good muscle tone. RECTAL: Grossly bloody and guaiac positive TRIAGE NURSING DOCUMENTATION REVIEWED. Critical Care Time Critical Care Time: Yes Total Critical Care Time: 32 I have personally spent 32 minutes of critical care time in the direct management of this patient. This includes bedside care, interpretation of diagnostic studies, and testing, discussion with consultants, patient, and family members, and other required patient management activities. This 32 minutes is in excess of all separately billable procedures. Medical Decision Making Differential Diagnosis Differential includes acute coronary syndrome, myocardial infarction, CVA, TIA, anemia, infection, pneumonia, UTI, pyelonephritis, poor nutrition, dehydration, electrolyte disturbance,hypoglycemia. Medical Records Attestation: I reviewed the patient's medical records. Home Medications Current Medication List: was personally reviewed by me Laboratory Data Attestation: I reviewed the patient's lab results. Result diagrams: 02/23/20 13:00 02/23/20 13:00 Lab Results 02/23/20 02/23/20 02/23/20 Range/Units 12:57 13:00 13:00 WBC 9.02 (4.8-10.8) K/uL RBC 3.92 L (4.2-5.4) M/uL Hgb 7.2 L (12.0-16.0) g/dL Hct 28.1 L (37-47) % MCV 71.7 L (80-100) fL MCH 18.4 L (25-34) pg MCHC 25.6 L (32-36) g/dL RDW Std Deviation 52.3 H (36.4-46.3) fL RDW Coeff of Tere 20.3 H (11.5-14.5) % Plt Count 483 H (130-400) K/uL MPV 9.7 (7.4-10.4) fL Immature Gran % (Auto) 0.2 % Neut % (Auto) 68.4 % Lymph % (Auto) 22.2 % [place] % (Auto) 8.5 % Eos % (Auto) 0.4 % Baso % (Auto) 0.3 % Neut # (Auto) 6.16 (1.4-6.5) K/uL Lymph # (Auto) 2.00 (1.2-3.4) K/uL [place]idge # (Auto) 0.77 H (0.11-0.59) K/uL Eos # (Auto) 0.04 (0-0.5) K/uL Baso # (Auto) 0.03 (0-0.2) K/uL Immature Gran # (Auto) 0.02 (0.00-0.02) K/uL Hypochromasia Present Anisocytosis Present Microcytosis Present PT (9.0-12.0) Seconds INR (0.9-1.1) APTT (21.0-31.0) Seconds PTT Ratio Sodium (136-145) mmol/L Potassium (3.5-5.1) mmol/L Chloride (98-107) mmol/L Carbon Dioxide (21-32) mmol/L Anion Gap (3-11) BUN (7-18) mg/dl Creatinine (0.6-1.2) mg/dl Est Cr Clr Drug Dosing Est GFR ( Amer) Est GFR (Non-Af Amer) BUN/Creatinine Ratio (10-20) Glucose (70-99) mg/dl Calcium (8.5-10.1) mg/dl Total Bilirubin (0.2-1) mg/dl AST (15-37) U/L ALT (12-78) U/L Alkaline Phosphatase (45-117) U/L Total Protein (6.4-8.2) gm/dl Albumin (3.4-5.0) gm/dl Globulin (2.5-4.0) gm/dl Albumin/Globulin Ratio (0.9-2) POC Stool Occult Blood Positive A (Negative) Blood Type O Negative Antibody Screen POSITIVE A Crossmatch See Detail 02/23/20 02/23/20 Range/Units 13:00 13:00 WBC (4.8-10.8) K/uL RBC (4.2-5.4) M/uL Hgb (12.0-16.0) g/dL Hct (37-47) % MCV (80-100) fL MCH (25-34) pg MCHC (32-36) g/dL RDW Std Deviation (36.4-46.3) fL RDW Coeff of Tere (11.5-14.5) % Plt Count (130-400) K/uL MPV (7.4-10.4) fL Immature Gran % (Auto) % Neut % (Auto) % Lymph % (Auto) % Doddridge % (Auto) % Eos % (Auto) % Baso % (Auto) % Neut # (Auto) (1.4-6.5) K/uL Lymph # (Auto) (1.2-3.4) K/uL Dod[place]idge # (Auto) (0.11-0.59) K/uL Eos # (Auto) (0-0.5) K/uL Baso # (Auto) (0-0.2) K/uL Immature Gran # (Auto) (0.00-0.02) K/uL Hypochromasia Anisocytosis Microcytosis PT 10.8 (9.0-12.0) Seconds INR 1.0 (0.9-1.1) APTT 23.9 (21.0-31.0) Seconds PTT Ratio 0.9 Sodium 143 (136-145) mmol/L Potassium 4.2 (3.5-5.1) mmol/L Chloride 112 H (98-107) mmol/L Carbon Dioxide 24 (21-32) mmol/L Anion Gap 7.0 (3-11) BUN 17 (7-18) mg/dl Creatinine 0.78 (0.6-1.2) mg/dl Est Cr Clr Drug Dosing Not Reportable Est GFR ( Amer) 79.8 Est GFR (Non-Af Amer) 68.8 BUN/Creatinine Ratio 21.5 H (10-20) Glucose 105 H (70-99) mg/dl Calcium 9.3 (8.5-10.1) mg/dl Total Bilirubin 0.4 (0.2-1) mg/dl AST 18 (15-37) U/L ALT 21 (12-78) U/L Alkaline Phosphatase 86 (45-117) U/L Total Protein 7.4 (6.4-8.2) gm/dl Albumin 3.2 L (3.4-5.0) gm/dl Globulin 4.2 H (2.5-4.0) gm/dl Albumin/Globulin Ratio 0.8 L (0.9-2) POC Stool Occult Blood (Negative) Blood Type Antibody Screen Crossmatch ECG Data Attestation: I personally reviewed and interpreted this ECG as follows: Indication: + weakness Rate (beats per minute): 65 Rhythm: + normal sinus ECG Intervals/blocks: + Normal QT-c ECG ST segments: no ST elevation ECG Findings: no PVCs Blood Pressure Blood Pressure Findings: Normal blood pressure MDM Narrative This is a 84-year-old female who presents to the ED with a chief complaint of feeling exhausted and weak over the past several months. She states that she had blood work done last Saturday that showed that her hemoglobin was 7.2. Her PCP put her on iron. She contacted her doctor about feeling short of breath with exertion and having exertional fatigue today and she was referred here. The patient is on Eliquis for A. fib. She denied having any blood in her stools. Denies any black stools. She has no other complaints at this time. The patient exam reveals that she is pale. She appears weak. She has gross blood on rectal exam. The patient's hemoglobin today is 7.2. Her platelet count is 483. Chemistry panel was unremarkable. The patient was typed and c rossed for 1 unit of transfusion of blood. The patient will require admission to the hospital for further evaluation of her GI bleeding and anemia. Impression & Plan Acute GI bleeding, Anemia, Chronic anticoagulation Discharge Plan Visit Data Chief Complaint: Abnormal Labs/Diagnostic Testing Stated Complaint: LOWER IRON,WEAKNESS ED Provider: Atilio Portillo Discharge Problem: Acute GI bleeding, Anemia, Chronic anticoagulation Patient Disposition: Admitted As Inpatient Forms Stand Alone Forms: My [facility] Prescriptions Prescriptions: No Action metoprolol succinate 50 mg Tablet Extended Release 24 Hr 50 mg PO BID Qty: 60 RF: 3 Eliquis 5 mg Tablet 5 mg PO BID Qty: 60 RF: 1 calcium carbonate-vitamin D3 [Os-Ethan 500 + D3] 500 mg(1,250mg) -200 unit Tablet 1 tab PO QAM RF: 0 furosemide [Lasix] 40 mg Tablet 40 mg PO DAILY PRN (Reason: Fluid Retention) RF: 0 bgnurbunwmrc-defreqho-wbtryv Tablet 1 tab PO QAM RF: 0 rosuvastatin [Crestor] 10 mg Tablet 10 mg PO Q2D RF: 0 docusate sodium [Colace] 100 mg Capsule 1 tab PO DAILY RF: 0 omeprazole 20 mg Capsule,Delayed Release(Dr/Ec) 1 tab PO DAILY RF: 0 biotin 5,000 mcg Tablet,Disintegrating 1 tab PO DAILY RF: 0 amiodarone 200 mg tablet 200 mg PO DAILY RF: 0 Referrals Referrals: Morgan Llamas MD [Primary Care Provider] - Discharge Problem: Anemia Qualifiers: Anemia type: unspecified type Qualified Code(s): D64.9 - Anemia, unspecified
[2020-02-23 13:34] LABS: Partial Thromboplastin Ratio 0.9; Partial Thromboplastin Time 23.9 Seconds (21.0-31.0); Prothrombin Time 10.8 Seconds (9.0-12.0)
[2020-02-23 13:43] LABS: Alanine Aminotransferase 21 U/L (12-78); Albumin Level 3.2 gm/dl (3.4-5.0); Aspartate Aminotransferase 18 U/L (15-37); BUN Creatinine Ratio 21.5 (10-20); Blood Urea Nitrogen 17 mg/dl (7-18); Calcium 9.3 mg/dl (8.5-10.1); Carbon Dioxide 24 mmol/L (21-32); Chloride 112 mmol/L (98-107); Est GFR (African American) 79.8; Est GFR (Non-African American) 68.8; Glucose 105 mg/dl (70-99); Potassium 4.2 mmol/L (3.5-5.1); Sodium 143 mmol/L (136-145)
[2020-02-23 13:45] LABS: Albumin Globulin Ratio 0.8 (0.9-2); Alkaline Phosphatase 86 U/L (45-117); Bilirubin,Total 0.4 mg/dl (0.2-1); Globulin 4.2 gm/dl (2.5-4.0); Hematocrit (blood only) 28.1 % (37-47); Hemoglobin 7.2 g/dL (12.0-16.0); Mean Corpuscular Hemoglobin 18.4 pg (25-34); Mean Corpuscular Hgb Conc 25.6 g/dL (32-36); Mean Corpuscular Volume 71.7 fL (80-100); Mean Platelet Volume 9.7 fL (7.4-10.4); Platelet Count 483 K/uL (130-400); RDW Coefficient of Variation 20.3 % (11.5-14.5); RDW Standard Deviation 52.3 fL (36.4-46.3); Red Blood Count 3.92 M/uL (4.2-5.4); Total Protein 7.4 gm/dl (6.4-8.2); White Blood Count 9.02 K/uL (4.8-10.8)
[2020-02-23 13:48] LABS: Anisocytosis Present; Basophils # (auto) 0.03 K/uL (0-0.2); Basophils % (auto) 0.3 %; Eosinophils # (auto) 0.04 K/uL (0-0.5); Eosinophils % (auto) 0.4 %; Hypochromasia Present; Immature Granulocytes # (auto) 0.02 K/uL (0.00-0.02); Immature Granulocytes % (auto) 0.2 %; Lymphocytes % (auto) 22.2 %; Microcytosis Present; Monocytes # (auto) 0.77 K/uL (0.11-0.59); Monocytes % (auto) 8.5 %; Neutrophils # (auto) 6.16 K/uL (1.4-6.5); Neutrophils % (auto) 68.4 %
[2020-02-23] MEDS ORDERED: SODIUM CHLORIDE 0.9% 250 ML IV PRN ×2 (14:18→17:49)
--- NOTE | 2020-02-23 15:17 | History & Physical Report ---
Date of Service February 23, 2020 Assessment & Plan (1) Symptomatic anemia: (2) Acute GI bleeding: This is an 84-year-old female who has significant past medical history of PAF anticoagulated on Eliquis, HLD, macular degeneration, seen osteoporosis, GERD, vitamin D deficiency who presents to ED secondary to being referred to due to symptomatic iron deficiency anemia. Patient with acute symptomatic iron deficiency anemia. Iron panel in outpatient setting on 02/17/2020 revealed ferritin 7.3, iron 19, total saturation 4, TIBC 501. On Eliquis 5 mg twice daily, last dose a.m. of 02/22. Does not use NSAIDs or alcohol. No abdominal or GI complaints, denies melena or hematochezia. Hemoglobin on 02/16 7.2 and hemoglobin today 7.2. +FOBT in ED, per ED provider gross blood. Pt started iron supplements yesterday, 3 doses. Symptoms present over the last 6 months. Last colonoscopy was in 1977, normal per patient. Admit to telemetry Transfuse 1 unit PRBC Repeat H&H at 9 PM Continue ferrous sulfate 325 mg 3 times daily, pt may benefit from IV venofer infusions Clear liquids, n.p.o. after midnight Consult GI Preoperative COVID testing in event EGD/colonoscopy hold eliquis - currently NSR (3) PAF (paroxysmal atrial fibrillation): Continue amiodarone and metoprolol for rate and rhythm control Currently normal sinus rhythm Hold Eliquis given concern for GI bleed (4) Diastolic dysfunction: Last echocardiogram 10/2019 revealed EF 55%, grade 2 diastolic dysfunction, moderately large left atrium She does take Lasix as needed for swelling, but recently has not required Daily weights, strict I's and O's Monitor volume status in setting of transfusion Continue metoprolol (5) HLD (hyperlipidemia): On statin as outpatient (6) DVT prophylaxis: SCD/teds Hold Eliquis Disposition: Admit to telemetry Follow-up: PCP Dr. Llamas upon discharge, pt is requesting switching to Dr. Stein, can be arranged at D/C Pt was seen and examined in collaboration with Dr. Head, please see addendum History of Present Illness Chief Complaint: Referred to ED due to symptomatic anemia. Primary Care Provider: Morgan Llamas MD This is an 84-year-old female who has significant past medical history of PAF anticoagulated on Eliquis, HLD, macular degeneration, seen osteoporosis, GERD, vitamin D deficiency who presents to ED secondary to being referred to due to s ymptomatic iron deficiency anemia. Patient elicits since August 2019 she has been having increasing shortness of breath with exertion, fatigue, and extreme weakness. In October she was seen and evaluated by cardiology Dr. Fairchild and underwent a thorough cardiac evaluation including echocardiogram. It was felt that her symptoms were not related to cardiac in origin. Last year she did have 3 hospitalizations due to her atrial fibrillation but this has since been controlled and she remains on Eliquis for thrombotic control. Symptoms have been worsening since August and she now reports significant shortness of breath even with minimal exertion. With standing she does occasionally lightheaded and dizzy but denies any syncope. She denies any recent fever, chills, sweats, chest pain, palpitations, nausea, vomiting, hematemesis, diarrhea, melena, hematochezia, abdominal pain, dysuria, increased urgency or frequency with urination, hematuria. She was started on ferrous sulfate 3 times daily yesterday and has so far completed 3 doses. She tends to run on the constipated side so she does take stool softener daily. She denies any alcohol use, NSAID use. She primarily uses acetaminophen for pain control. She does have a remote history of gastritis denies any history of PUD. Her last colonoscopy was in 1977, "after my sister was diagnosed with precancerous cells in her colon." She is an identical twin. In ED patient remained hemodynamically stable. Lab work notable for H&H 7.2 and 28.1, MCV low 71.7, MCH 18.4, platelet 483, BUN 17, creatinine 0.78, stool occult blood positive. She was typed and crossed for 1 unit. Allergies Allergy/AdvReac Type Severity Reaction Status Date / Time Bactrim Allergy Unknown . Unverified 08/01/17 17:48 Sulfa (Sulfonamide Allergy Unknown . Unverified 02/23/20 13:27 Antibiotics) sulfamethoxazole Allergy Unknown . Unverified 02/23/20 13:27 trimethoprim Allergy Unknown . Verified 02/23/20 13:27 Home Medications Home Medications Medication Instructions Recorded Confirmed Type calcium carbonate-vitamin D3 1 tab PO QAM 09/26/18 02/23/20 History [Os-Ethan 500 + D3] furosemide [Lasix] 40 mg PO DAILY PRN 09/26/18 02/23/20 History tvuiglwoqdhz-qmkzzigo-szfdej 1 tab PO QAM 09/26/18 02/23/20 History rosuvastatin [Crestor] 10 mg PO Q2D 09/26/18 02/23/20 History Eliquis 5 mg PO BID #60 tab 10/31/18 02/23/20 Rx metoprolol succinate 50 mg PO BID #60 tab 10/31/18 02/23/20 Rx docusate sodium [Colace] 2 tab PO DAILY 12/09/18 02/23/20 History omeprazole 1 tab PO DAILY 12/09/18 02/23/20 History amiodarone 200 mg PO DAILY 02/23/20 02/23/20 History ferrous sulfate 325 mg PO TID 02/23/20 02/23/20 History Past Med/Surg History Medical History (Updated 02/23/20 @ 15:51 by Silvana Quezada PA-C) GERD (gastroesophageal reflux disease) History of PSVT (paroxysmal supraventricular tachycardia) HLD (hyperlipidemia) Macular degeneration Osteoporosis PAF (paroxysmal atrial fibrillation) Surgical History History of appendectomy History of History of cataract extraction History of cholecystectomy History of lumbar laminectomy History of total hysterectomy with bilateral salpingo-oophorectomy (BSO) Family History Father , age 65 Myocardial infarction Mother Coronary heart disease CHF (congestive heart failure) Sister Atrial fibrillation Social History Preferred Language: Korean Communication Ability: Effective Hearing Ability: Use of Hearing Aid Press Tender Incendiary Grenade Required: No Beliefs That Will Affect Care: None marital status: / Current Living Situation: Alone current occupational status: retired Other Information That Helps Us Care for You: No other: walks with cane, still drives Feels Safe at Home: Yes Safety Concerns: Feels Safe At This Time Smoking Status: Former smoker Cigarettes Per Day: 10 ; Hx Alcohol Use: No Hx Substance Use: No Review of Systems Review of Systems: All systems reviewed & are unremarkable except as noted in HPI & below Physical Exam Physical Exam: Constitutional: WD/WN, vitals as above, NAD, sitting up in bed, pleasant, conversing easily Head: Normocephalic, Atraumatic Eyes: PERRL, conjunctivae normal, anicteric sclerae ENMT: external ear and nose normal, oropharynx normal Neck: trachea midline, no thyromegaly normal visual inspection Respiratory: normal respiratory effort, lungs clear to auscultation, no wheeze, rales, rhonchi. Normal insp/exp effort, no accessory muscle use Cardiovascular: RRR, 2/6 PAUL best noted RUSB, no edema Vessels: no JVD or carotid bruit Chest: normal inspection of chest Abdomen: normal bowel sounds, soft, nontender, no hepatosplenomegaly Musculoskeletal: no cyanosis or clubbing, extremities motor strength 5/5 Skin: no rashes, warm and dry normal turgor Neurologic: PERRL, EOMI, accommodation nl, no face palsy, no dysarthria CN's II-XI intact bilaterally and moves all extremities Psychiatric: A+Ox3, euthymic affect Lymphatic: no cervical or axillary lymphadenopathy : deferred Results & Data Results & Data ([facility]) Vital Signs (Past 12 Hours) Vital Signs Temp Pulse Pulse Resp BP BP Pulse Ox 02/23/20 14:57 63 16 164/70 H 95 02/23/20 13:11 96 02/23/20 12:42 37.2 C 66 20 111/54 L 97 Laboratory Results Short CBC 02/23/20 Range/Units 13:00 WBC 9.02 (4.8-10.8) K/uL Hgb 7.2 L (12.0-16.0) g/dL Hct 28.1 L (37-47) % Plt Count 483 H (130-400) K/uL BMP 02/23/20 13:00 Sodium 143 Potassium 4.2 Chloride 112 H Carbon Dioxide 24 BUN 17 Creatinine 0.78 Glucose 105 H Calcium 9.3 Liver Function 02/23/20 Range/Units 13:00 Total Bilirubin 0.4 (0.2-1) mg/dl AST 18 (15-37) U/L ALT 21 (12-78) U/L Alkaline Phosphatase 86 (45-117) U/L Albumin 3.2 L (3.4-5.0) gm/dl 02/17/2020 hemoglobin 7.2, ferritin 7.3, iron 19, total iron saturation 4, TIBC 501, TSH 5.37, T4 1.58 Echocardiogram 10/22/2019 revealed EF 55%, grade 2 diastolic dysfunction, moderate left atrial enlargement ECG Rate (beats per minute): 60 Rhythm: normal sinus Code Status & VTE Plan Code Status Full code VTE Prophylaxis Plan VTE Prophylaxis will be ordered: Yes Supervising Physician Co-Signing Physician Notes I have seen and examined the patient and have discussed the case with the provider above. I agree with the assessment and plan as stated with the following exceptions. 84 yo F with symptomatic anemia 2/2 iron deficiency and presumed GI blood loss. Appears to be somewhat chronic in nature as patient has been symptomatic since Aug 2019, however, she denies any h/o gross blood per rectum prior to today. H/o Eliquis use likely contributing to her blood loss anemia and has been held. She has no h/o stroke, and proudly reports that she has been in sinus rhythm for months now. Last known H/H on file was November 2018 and was . Patient again felt well until around Aug 2019. Currently H/H is 7.2/28. She is hemodynamically stable and denies any abdominal pain. She is euvolemic on exam with clear lungs to auscultation. I did not appreciate the noted murmur on my exam, and S1/2 were heard with a regular rate and rhythm. Abdominal exam was benign. Patient is notably pale and somewhat weak but is able to move around the bed independently without issue. Agree with plan above including GI plans to scope her tomorrow. H/H in am and I increased the ordered blood to two units. There is an antibody that is currently being worked up by the blood bank. Pretreatments and Lasix in between units has been ordered. Communicated this to primary nurse. Cont monitoring on telemetry. Cont holding Eliquis for now until a definitive reason for her anemia can be found. DO Sonido (1) HLD (hyperlipidemia) Hyperlipidemia type: unspecified Qualified Code(s): E78.5 - Hyperlipidemia, unspecified
[2020-02-23] MEDS ORDERED: ALUMINUM/MAGNESIUM SUSP 30 ML UDC PO PRN (15:55)
[2020-02-23] MEDS ORDERED: POLYETHYLENE (MIRALAX) 17 GM PACK PO PRN (15:55)
[2020-02-23] MEDS ORDERED: ONDANSETRON INJ 2 MG/ML 2 ML VIAL IV PRN (15:55)
[2020-02-23] MEDS ORDERED: ACETAMINOPHEN 325 MG TAB PO PRN (15:55)
--- NOTE | 2020-02-23 16:20 | Gastrointestinal Consultation ---
Date of Consultation February 23, 2020 Assessment & Plan (1) Symptomatic anemia: This is an 84 y/o female with PMHx a-fib on Eliquis, with worsening fatigue, dyspnea on exertion since August, found to be anemic with HGB 7.2 with microcytic indices and low ferritin. She denies obvious GIB - no melena, hematochezia, hematemesis. Presently she is being admitted and 1 unit of blood has bend ordered. She is HD stable; abd is soft. Concern for occult GI blood loss given current presentation (PUD, AVM, occult malignancy, etc). - Recommended EGD/colonoscopy to further evaluate her and pt is in agreement; will arrange for tomorrow. - Start IVF - Start IV PPI BID - Start GOlytely prep (1/2 bottle at 5 pm; second 1/2 bottle at 10 PM) - NPO after 1 AM - Trend H&H, transfuse PRN - Check BMP, CBC in AM (6 AM) - Hold Eliquis - Monitor GI output Thank you for allowing us to participate in the care of this patient. Please call with any acute changes, questions or concerns. Please see addendum below with additional recommendation from my supervising physician. Supervising Physician Co-Signing Physician Notes I have seen and examined the patient and discussed the management with Isabella Moreno PA-C. Admitted through the ER for symptomatic iron deficiency anemia (per outpatient labs)- symptom is sob, ferritin low, microcytic anemia. History of paroxysal afib converted in the past medically and with cardio version, has been in nsr. On eliquis - last dose am of 02/23/20. She is agreeable to egd/colon tomorrow. Abd soft nt nd +bs Outpatient labs reviewed current labs reviewed in house. Egd/colonoscopy on 02/24/20. History of Present Illness Reason for Consultation: anemia Attending Physician: Brittnee Head, History of Present Illness Pt is an 84 y/o female with PMH HTN, HLD, GERD, a-fib on Eliquis, who presented with worsening shortness of breath, fatigue since August. She was found to have HGB 13 -> 7.2 on outpt labs. She was started on oral iron and presented today feeling "like she couldn't take it anymore." Labs on arrival with HGB 7.2, microcytic, normal BUN/cr, INR WNL. Ferritin was 7. Last dose of Eliquis was this AM. She's HD stable. ER provider noted gross blood on exam, though pt reports no melena, hematochezia, hematemesis, no abd pain, vomiting, nausea, GERD on PPI, dysphagia, weight loss. Per history she has a low COVID risk, no fever, chills, sick contacts. Denies ETOH, tobacco use, no NSAID use. Had 1 colonoscopy in 1977 which pt reports as normal (report not available). Her twin sister had a h/o colonic polyps. Allergies Allergy/AdvReac Type Severity Reaction Status Date / Time Bactrim Allergy Unknown . Unverified 08/01/17 17:48 Sulfa (Sulfonamide Allergy Unknown . Unverified 02/23/20 13:27 Antibiotics) sulfamethoxazole Allergy Unknown . Unverified 02/23/20 13:27 trimethoprim Allergy Unknown . Verified 02/23/20 13:27 Home Medications Home Medications Medication Instructions Recorded Confirmed Type calcium carbonate-vitamin D3 1 tab PO QAM 09/26/18 02/23/20 History [Os-Ethan 500 + D3] furosemide [Lasix] 40 mg PO DAILY PRN 09/26/18 02/23/20 History qqmzneydapzp-[id number]-rzdslz 1 tab PO QAM 09/26/18 02/23/20 History rosuvastatin [Crestor] 10 mg PO Q2D 09/26/18 02/23/20 History Eliquis 5 mg PO BID #60 tab 10/31/18 02/23/20 Rx metoprolol succinate 50 mg PO BID #60 tab 10/31/18 02/23/20 Rx docusate sodium [Colace] 2 tab PO DAILY 12/09/18 02/23/20 History omeprazole 1 tab PO DAILY 12/09/18 02/23/20 History amiodarone 200 mg PO DAILY 02/23/20 02/23/20 History ferrous sulfate 325 mg PO TID 02/23/20 02/23/20 History Patient History Medical History (Updated 02/23/20 @ 15:51 by Silvana Quezada PA-C) GERD (gastroesophageal reflux disease) History of PSVT (paroxysmal supraventricular tachycardia) HLD (hyperlipidemia) Macular degeneration Osteoporosis PAF (paroxysmal atrial fibrillation) Surgical History History of appendectomy History of History of cataract extraction History of cholecystectomy History of lumbar laminectomy History of total hysterectomy with bilateral salpingo-oophorectomy (BSO) Family History Father , age 65 Myocardial infarction Mother Coronary heart disease CHF (congestive heart failure) Sister Atrial fibrillation Social History Preferred Language: Swedish Communication Ability: Effective Hearing Ability: Use of Hearing Aid Biochemist Required: No Beliefs That Will Affect Care: None marital status: / Current Living Situation: Alone current occupational status: retired Other Information That Helps Us Care for You: No other: walks with cane, still drives Feels Safe at Home: Yes Safety Concerns: Feels Safe At This Time Smoking Status: Former smoker Cigarettes Per Day: 10 ; Hx Alcohol Use: No Hx Substance Use: No Review of Systems Constitutional: no fever and no body aches Respiratory: + dyspnea on exertion; no cough Cardiovascular: as per Subjective / HPI; no chest pain Hematologic / Lymphatic: no coagulopathy and no unexplained weight loss Physical Exam Constitutional: WD/WN, vitals as above no acute distress Eyes: + anicteric sclerae Respiratory: normal respiratory effort, lungs clear to auscultation Cardiovascular: RRR, no murmur, no edema Gastrointestinal (Abdomen): normal bowel sounds, soft, nontender, no hepatosplenomegaly Inspection/Auscultation: abdomen not distended Skin: no rashes, warm and dry Psychiatric: A+Ox3, euthymic affect Results & Data ([facility]) Vital Signs (Past 12 Hours) Vital Signs Temp Pulse Pulse Resp BP BP BP 02/23/20 16:16 62 02/23/20 15:55 37.1 C 74 18 130/76 02/23/20 14:57 63 16 164/70 H 02/23/20 13:11 02/23/20 12:42 37.2 C 66 20 111/54 L Pulse Ox 02/23/20 16:16 02/23/20 15:55 100 02/23/20 14:57 95 07/07/20 13:11 96 02/23/20 12:42 97 Laboratory Results 02/23/20 02/23/20 02/23/20 Range/Units 14:47 13:00 13:00 WBC (4.8-10.8) K/uL RBC (4.2-5.4) M/uL Hgb (12.0-16.0) g/dL Hct (37-47) % MCV (80-100) fL MCH (25-34) pg MCHC (32-36) g/dL RDW Std Deviation (36.4-46.3) fL RDW Coeff of Tere (11.5-14.5) % Plt Count (130-400) K/uL MPV (7.4-10.4) fL Immature Gran % (Auto) % Neut % (Auto) % Lymph % (Auto) % Steele % (Auto) % Eos % (Auto) % Baso % (Auto) % Neut # (Auto) (1.4-6.5) K/uL Lymph # (Auto) (1.2-3.4) K/uL Steele # (Auto) (0.11-0.59) K/uL Eos # (Auto) (0-0.5) K/uL Baso # (Auto) (0-0.2) K/uL Immature Gran # (Auto) (0.00-0.02) K/uL Hypochromasia Anisocytosis Microcytosis PT 10.8 (9.0-12.0) Seconds INR 1.0 (0.9-1.1) APTT 23.9 (21.0-31.0) Seconds PTT Ratio 0.9 Sodium 143 (136-145) mmol/L Potassium 4.2 (3.5-5.1) mmol/L Chloride 112 H (98-107) mmol/L Carbon Dioxide 24 (21-32) mmol/L Anion Gap 7.0 (3-11) BUN 17 (7-18) mg/dl Creatinine 0.78 (0.6-1.2) mg/dl Est Cr Clr Drug Dosing Not Reportable Est GFR ( Amer) 79.8 Est GFR (Non-Af Amer) 68.8 BUN/Creatinine Ratio 21.5 H (10-20) Glucose 105 H (70-99) mg/dl Calcium 9.3 (8.5-10.1) mg/dl Total Bilirubin 0.4 (0.2-1) mg/dl AST 18 (15-37) U/L ALT 21 (12-78) U/L Alkaline Phosphatase 86 (45-117) U/L Total Protein 7.4 (6.4-8.2) gm/dl Albumin 3.2 L (3.4-5.0) gm/dl Globulin 4.2 H (2.5-4.0) gm/dl Albumin/Globulin Ratio 0.8 L (0.9-2) POC Stool Occult Blood (Negative) Blood Type Blood Type Recheck O Negative Antibody Screen Antibody Identification Antibody ID Comment Crossmatch 02/23/20 02/23/20 02/23/20 Range/Units 13:00 13:00 12:57 WBC 9.02 (4.8-10.8) K/uL RBC 3.92 L (4.2-5.4) M/uL Hgb 7.2 L (12.0-16.0) g/dL Hct 28.1 L (37-47) % MCV 71.7 L (80-100) fL MCH 18.4 L (25-34) pg MCHC 25.6 L (32-36) g/dL RDW Std Deviation 52.3 H (36.4-46.3) fL RDW Coeff of Tere 20.3 H (11.5-14.5) % Plt Count 483 H (130-400) K/uL MPV 9.7 (7.4-10.4) fL Immature Gran % (Auto) 0.2 % Neut % (Auto) 68.4 % Lymph % (Auto) 22.2 % Steele % (Auto) 8.5 % Eos % (Auto) 0.4 % Baso % (Auto) 0.3 % Neut # (Auto) 6.16 (1.4-6.5) K/uL Lymph # (Auto) 2.00 (1.2-3.4) K/uL Steele # (Auto) 0.77 H (0.11-0.59) K/uL Eos # (Auto) 0.04 (0-0.5) K/uL Baso # (Auto) 0.03 (0-0.2) K/uL Immature Gran # (Auto) 0.02 (0.00-0.02) K/uL Hypochromasia Present Anisocytosis Present Microcytosis Present PT (9.0-12.0) Seconds INR (0.9-1.1) APTT (21.0-31.0) Seconds PTT Ratio Sodium (136-145) mmol/L Potassium (3.5-5.1) mmol/L Chloride (98-107) mmol/L Carbon Dioxide (21-32) mmol/L Anion Gap (3-11) BUN (7-18) mg/dl Creatinine (0.6-1.2) mg/dl Est Cr Clr Drug Dosing Est GFR ( Amer) Est GFR (Non-Af Amer) BUN/Creatinine Ratio (10-20) Glucose (70-99) mg/dl Calcium (8.5-10.1) mg/dl Total Bilirubin (0.2-1) mg/dl AST (15-37) U/L ALT (12-78) U/L Alkaline Phosphatase (45-117) U/L Total Protein (6.4-8.2) gm/dl Albumin (3.4-5.0) gm/dl Globulin (2.5-4.0) gm/dl Albumin/Globulin Ratio (0.9-2) POC Stool Occult Blood Positive A (Negative) Blood Type O Negative Blood Type Recheck Antibody Screen POSITIVE A Antibody Identification Pending Antibody ID Comment Pending Crossmatch See Detail
[2020-02-23] MEDS: LAVAGE SOLUTION 4000ML PO SCH ×2 (17:02→22:05)
[2020-02-23] MEDS ORDERED: ACETAMINOPHEN 325 MG TAB PO SCH (18:00)
[2020-02-23] MEDS ORDERED: FUROSEMIDE 20 MG in SYRINGE 0 ML IV SCH (18:00)
[2020-02-23] MEDS: METOPROLOL SUCC 50MG EXT REL TAB PO SCH (20:24)
[2020-02-23] MEDS: FERROUS SULFATE 325 MG TAB PO SCH (20:24)
[2020-02-23] MEDS: PANTOprazole 40 MG in SYRINGE 0 ML IV SCH (20:43)
[2020-02-24 06:08] LABS: Hematocrit (blood only) 25.1 % (37-47); Hemoglobin 6.5 g/dL (12.0-16.0); Mean Corpuscular Hemoglobin 18.4 pg (25-34); Mean Corpuscular Hgb Conc 25.9 g/dL (32-36); Mean Corpuscular Volume 71.1 fL (80-100); Platelet Count 390 K/uL (130-400); RDW Coefficient of Variation 20.2 % (11.5-14.5); RDW Standard Deviation 51.1 fL (36.4-46.3); Red Blood Count 3.53 M/uL (4.2-5.4); White Blood Count 8.53 K/uL (4.8-10.8)
[2020-02-24 06:27] LABS: Calcium 9.2 mg/dl (8.5-10.1); Creatinine Clr Calc Pharmacy 51.2 ml/min; Est GFR (African American) 91.8; Est GFR (Non-African American) 79.2; Potassium 3.8 mmol/L (3.5-5.1)
[2020-02-24 06:34] LABS: Anisocytosis Present; Basophils # (auto) 0.04 K/uL (0-0.2); Basophils % (auto) 0.5 %; Eosinophils # (auto) 0.09 K/uL (0-0.5); Eosinophils % (auto) 1.1 %; Hypochromasia Present; Immature Granulocytes # (auto) 0.01 K/uL (0.00-0.02); Immature Granulocytes % (auto) 0.1 %; Lymphocytes # (auto) 2.95 K/uL (1.2-3.4); Lymphocytes % (auto) 34.6 %; Monocytes # (auto) 0.97 K/uL (0.11-0.59); Monocytes % (auto) 11.4 %; Neutrophils # (auto) 4.47 K/uL (1.4-6.5); Neutrophils % (auto) 52.3 %
--- NOTE | 2020-02-24 06:49 | Electrocardiogram Report ---
Test Reason : Blood Pressure : / mmHG Vent. Rate : 065 BPM Atrial Rate : 065 BPM P-R Int : 204 ms QRS Dur : 084 ms QT Int : 444 ms P-R-T Axes : 069 -11 055 degrees QTc Int : 461 ms Normal sinus rhythm Nonspecific T wave abnormality Abnormal ECG When compared with ECG of 13-DEC-2018 06:40, Sinus rhythm has replaced Atrial flutter Vent. rate has decreased BY 43 BPM Nonspecific T wave abnormality has replaced inverted T waves in Anterior leads Confirmed by Valentino Rodríguez ([id number]) on 02/24/2020 6:49:33 AM Referred By: Ida Marr Confirmed By:Valentino Rodríguez
--- NOTE | 2020-02-24 11:36 | Gastroenterology Progress Note ---
Date of Service February 24, 2020 Assessment & Plan (1) Symptomatic anemia: 84 y/o female pt admitted with symptomatic anemia, with worsening HGB overnight 7.2 -> 6.5, BUN stable; VSS, abd is soft; unable to get blood last night as AB's were +; blood is reportedly on its way from [facility]. She did prep for EGD/colonoscopy today, however this is on hold until she gets HGB corrected. - Clear liquids today - 1/2 Golytely bottle at 8 PM - NPO after midnight - Monitor GI output - Trend H&H, transfuse PRN - EGD/colonoscopy tomorrow Admission and Anticipated Discharge Date Admission Date: February 23, 2020 Supervising Physician Co-Signing Physician Notes I have seen and examined the patient and discussed the management with Isabella melvin PA-C. Did not receive blood and drop in hgb this am- blood is being brought in from [place]. PE unchanged from yesterday. Hgb significant for drop today. Blood transfusion today. 1/2 bowel prep this evening. Continue to hold blood thinner. Potential egd/colon tomorrow pending labs as long as hgb above 7. Subjective Patient seen and examined, chart reviewed. No acute events overnight. Pt completed colonscopy prep. HGB dropped to 6.5 this AM. Was not able to get unit of pRBC as she had + antibodies; blood is on it's way from the [facility]. She's had no melena, hematocehzia, hematemesis. Denies abd pain; still feels weak, tired. No syncope, chest pain, dyspnea, cough, fever. Physical Exam Constitutional: no acute distress Somewhat pale Respiratory: normal respiratory effort, lungs clear to auscultation Cardiovascular: Rate/Rhythm: regular rate and regular rhythm Gastrointestinal (Abdomen): normal bowel sounds, soft, nontender, no hepatosplenomegaly Inspection/Auscultation: abdomen not distended Skin: no rashes, warm and dry Psychiatric: A+Ox3, euthymic affect Results & Data ([facility]) Vital Signs (Past 12 Hours) Vital Signs Temp Pulse Pulse Resp BP Pulse Ox 02/24/20 07:19 37.0 C 62 18 117/51 L 96 02/24/20 07:12 59 L 02/24/20 03:55 36.8 C 62 20 120/51 L 97 Laboratory Results 02/24/20 02/24/20 02/23/20 Range/Units 05:47 05:47 22:30 WBC 8.53 (4.8-10.8) K/uL RBC 3.53 L (4.2-5.4) M/uL Hgb 6.5 L* (12.0-16.0) g/dL Hct 25.1 L (37-47) % MCV 71.1 L (80-100) fL MCH 18.4 L (25-34) pg MCHC 25.9 L (32-36) g/dL RDW Std Deviation 51.1 H (36.4-46.3) fL RDW Coeff of Tere 20.2 H (11.5-14.5) % Plt Count 390 (130-400) K/uL MPV 9.0 (7.4-10.4) fL Immature Gran % (Auto) 0.1 % Neut % (Auto) 52.3 % Lymph % (Auto) 34.6 % [place] % (Auto) 11.4 % Eos % (Auto) 1.1 % Baso % (Auto) 0.5 % Neut # (Auto) 4.47 (1.4-6.5) K/uL Lymph # (Auto) 2.95 (1.2-3.4) K/uL [place] # (Auto) 0.97 H (0.11-0.59) K/uL Eos # (Auto) 0.09 (0-0.5) K/uL Baso # (Auto) 0.04 (0-0.2) K/uL Immature Gran # (Auto) 0.01 (0.00-0.02) K/uL Hypochromasia Present Anisocytosis Present Microcytosis PT (9.0-12.0) Seconds INR (0.9-1.1) APTT (21.0-31.0) Seconds PTT Ratio Sodium 142 (136-145) mmol/L Potassium 3.8 (3.5-5.1) mmol/L Chloride 109 H (98-107) mmol/L Carbon Dioxide 27 (21-32) mmol/L Anion Gap 6.0 (3-11) BUN 12 (7-18) mg/dl Creatinine 0.68 (0.6-1.2) mg/dl Est Cr Clr Drug Dosing 51.2 Est GFR ( Amer) 91.8 Est GFR (Non-Af Amer) 79.2 BUN/Creatinine Ratio (10-20) Glucose (70-99) mg/dl Fasting Glucose 86 (70-99) mg/dl Calcium 9.2 (8.5-10.1) mg/dl Total Bilirubin (0.2-1) mg/dl AST (15-37) U/L ALT (12-78) U/L Alkaline Phosphatase (45-117) U/L Total Protein (6.4-8.2) gm/dl Albumin (3.4-5.0) gm/dl Globulin (2.5-4.0) gm/dl Albumin/Globulin Ratio (0.9-2) POC Stool Occult Blood (Negative) COVID-19 PCR (Negative) Blood Type Blood Type Recheck Antibody Screen Antibody Identification Antibody ID Referred Pending Antibody ID Comment Antigen Identification Crossmatch 02/23/20 02/23/20 02/23/20 Range/Units 17:00 14:47 13:00 WBC (4.8-10.8) K/uL RBC (4.2-5.4) M/uL Hgb (12.0-16.0) g/dL Hct (37-47) % MCV (80-100) fL MCH (25-34) pg MCHC (32-36) g/dL RDW Std Deviation (36.4-46.3) fL RDW Coeff of Tere (11.5-14.5) % Plt Count (130-400) K/uL MPV (7.4-10.4) fL Immature Gran % (Auto) % Neut % (Auto) % Lymph % (Auto) % [place] % (Auto) % Eos % (Auto) % Baso % (Auto) % Neut # (Auto) (1.4-6.5) K/uL Lymph # (Auto) (1.2-3.4) K/uL [place] # (Auto) (0.11-0.59) K/uL Eos # (Auto) (0-0.5) K/uL Baso # (Auto) (0-0.2) K/uL Immature Gran # (Auto) (0.00-0.02) K/uL Hypochromasia Anisocytosis Microcytosis PT (9.0-12.0) Seconds INR (0.9-1.1) APTT (21.0-31.0) Seconds PTT Ratio Sodium 143 (136-145) mmol/L Potassium 4.2 (3.5-5.1) mmol/L Chloride 112 H (98-107) mmol/L Carbon Dioxide 24 (21-32) mmol/L Anion Gap 7.0 (3-11) BUN 17 (7-18) mg/dl Creatinine 0.78 (0.6-1.2) mg/dl Est Cr Clr Drug Dosing Not Reportable Est GFR ( Amer) 79.8 Est GFR (Non-Af Amer) 68.8 BUN/Creatinine Ratio 21.5 H (10-20) Glucose 105 H (70-99) mg/dl Fasting Glucose (70-99) mg/dl Calcium 9.3 (8.5-10.1) mg/dl Total Bilirubin 0.4 (0.2-1) mg/dl AST 18 (15-37) U/L ALT 21 (12-78) U/L Alkaline Phosphatase 86 (45-117) U/L Total Protein 7.4 (6.4-8.2) gm/dl Albumin 3.2 L (3.4-5.0) gm/dl Globulin 4.2 H (2.5-4.0) gm/dl Albumin/Globulin Ratio 0.8 L (0.9-2) POC Stool Occult Blood (Negative) COVID-19 PCR NEGATIVE (Negative) Blood Type Blood Type Recheck O Negative Antibody Screen Antibody Identification Antibody ID Referred Antibody ID Comment Antigen Identification Crossmatch 02/23/20 02/23/20 02/23/20 Range/Units 13:00 13:00 13:00 WBC 9.02 (4.8-10.8) K/uL RBC 3.92 L (4.2-5.4) M/uL Hgb 7.2 L (12.0-16.0) g/dL Hct 28.1 L (37-47) % MCV 71.7 L (80-100) fL MCH 18.4 L (25-34) pg MCHC 25.6 L (32-36) g/dL RDW Std Deviation 52.3 H (36.4-46.3) fL RDW Coeff of Tere 20.3 H (11.5-14.5) % Plt Count 483 H (130-400) K/uL MPV 9.7 (7.4-10.4) fL Immature Gran % (Auto) 0.2 % Neut % (Auto) 68.4 % Lymph % (Auto) 22.2 % [place] % (Auto) 8.5 % Eos % (Auto) 0.4 % Baso % (Auto) 0.3 % Neut # (Auto) 6.16 (1.4-6.5) K/uL Lymph # (Auto) 2.00 (1.2-3.4) K/uL [place] # (Auto) 0.77 H (0.11-0.59) K/uL Eos # (Auto) 0.04 (0-0.5) K/uL Baso # (Auto) 0.03 (0-0.2) K/uL Immature Gran # (Auto) 0.02 (0.00-0.02) K/uL Hypochromasia Present Anisocytosis Present Microcytosis Present PT 10.8 (9.0-12.0) Seconds INR 1.0 (0.9-1.1) APTT 23.9 (21.0-31.0) Seconds PTT Ratio 0.9 Sodium (136-145) mmol/L Potassium (3.5-5.1) mmol/L Chloride (98-107) mmol/L Carbon Dioxide (21-32) mmol/L Anion Gap (3-11) BUN (7-18) mg/dl Creatinine (0.6-1.2) mg/dl Est Cr Clr Drug Dosing Est GFR ( Amer) Est GFR (Non-Af Amer) BUN/Creatinine Ratio (10-20) Glucose (70-99) mg/dl Fasting Glucose (70-99) mg/dl Calcium (8.5-10.1) mg/dl Total Bilirubin (0.2-1) mg/dl AST (15-37) U/L ALT (12-78) U/L Alkaline Phosphatase (45-117) U/L Total Protein (6.4-8.2) gm/dl Albumin (3.4-5.0) gm/dl Globulin (2.5-4.0) gm/dl Albumin/Globulin Ratio (0.9-2) POC Stool Occult Blood (Negative) COVID-19 PCR (Negative) Blood Type O Negative Blood Type Recheck Antibody Screen POSITIVE A Antibody Identification Anti-D Antibody ID Referred Antibody ID Comment Pending Antigen Identification C Antigen - NEGATIVE Crossmatch See Detail 02/23/20 Range/Units 12:57 WBC (4.8-10.8) K/uL RBC (4.2-5.4) M/uL Hgb (12.0-16.0) g/dL Hct (37-47) % MCV (80-100) fL MCH (25-34) pg MCHC (32-36) g/dL RDW Std Deviation (36.4-46.3) fL RDW Coeff of Tere (11.5-14.5) % Plt Count (130-400) K/uL MPV (7.4-10.4) fL Immature Gran % (Auto) % Neut % (Auto) % Lymph % (Auto) % [place] % (Auto) % Eos % (Auto) % Baso % (Auto) % Neut # (Auto) (1.4-6.5) K/uL Lymph # (Auto) (1.2-3.4) K/uL [place] # (Auto) (0.11-0.59) K/uL Eos # (Auto) (0-0.5) K/uL Baso # (Auto) (0-0.2) K/uL Immature Gran # (Auto) (0.00-0.02) K/uL Hypochromasia Anisocytosis Microcytosis PT (9.0-12.0) Seconds INR (0.9-1.1) APTT (21.0-31.0) Seconds PTT Ratio Sodium (136-145) mmol/L Potassium (3.5-5.1) mmol/L Chloride (98-107) mmol/L Carbon Dioxide (21-32) mmol/L Anion Gap (3-11) BUN (7-18) mg/dl Creatinine (0.6-1.2) mg/dl Est Cr Clr Drug Dosing Est GFR ( Amer) Est GFR (Non-Af Amer) BUN/Creatinine Ratio (10-20) Glucose (70-99) mg/dl Fasting Glucose (70-99) mg/dl Calcium (8.5-10.1) mg/dl Total Bilirubin (0.2-1) mg/dl AST (15-37) U/L ALT (12-78) U/L Alkaline Phosphatase (45-117) U/L Total Protein (6.4-8.2) gm/dl Albumin (3.4-5.0) gm/dl Globulin (2.5-4.0) gm/dl Albumin/Globulin Ratio (0.9-2) POC Stool Occult Blood Positive A (Negative) COVID-19 PCR (Negative) Blood Type Blood Type Recheck Antibody Screen Antibody Identification Antibody ID Referred Antibody ID Comment Antigen Identification Crossmatch
[2020-02-24] MEDS: FERROUS SULFATE 325 MG TAB PO SCH ×3 (14:51→20:25)
[2020-02-24] MEDS: CEROVITE ADV FORMULA TAB PO SCH (14:51)
[2020-02-24] MEDS: DOCUSATE SODIUM 100 MG CAP PO SCH (14:51)
[2020-02-24] MEDS: AMIODARONE 200 MG TAB PO SCH (14:52)
[2020-02-24] MEDS: CALCIUM CARBONATE 1250MG TAB PO SCH (14:52)
[2020-02-24] MEDS: PANTOprazole 40 MG in SYRINGE 0 ML IV SCH ×2 (14:53→20:25)
[2020-02-24] MEDS: METOPROLOL SUCC 50MG EXT REL TAB PO SCH ×2 (14:53→20:25)
--- NOTE | 2020-02-24 15:37 | Hospitalist Progress Note ---
Date of Service February 24, 2020 Assessment & Plan (1) Symptomatic anemia: (2) Acute GI bleeding: Acute blood loss anemia in setting of suspected GI bleed Patient presented with feeling of weakness, dizzy spell lightheadedness In the ER: Hemoglobin 7.2, hematocrit 28.1, on 12/13/2018 hemoglobin was 13.2, hematocrit was 40.6, +FOCB Possible GI bleed, history of paroxysmal A. fib on chronic anticoagulation with Eliquis therapy Eliquis discontinued, GI consulted, appreciate input Ordered for 2 units of PRBC transfusion, Patient has antibody in blood, blood product had to be obtained from blood bank in [place] Started on PRBC transfusion later this afternoon Patient is ordered clear liquid diet today, n.p.o. past midnight, with colonoscopy prep Plan for EGD and colonoscopy in a.m. Preoperative COVID testing negative: EGD/colonoscopy Chronic diastolic CHF Volume status stable, Last echo 10/2019 showed an EF of 55% with grade 2 diastolic dysfunction. Takes Lasix as needed for lower extremity swelling, recently has not required, Diuretics kept on hold in the setting of GI bleed Continue to monitor volume status (3) PAF (paroxysmal atrial fibrillation): Continue amiodarone and metoprolol for rate and rhythm control Currently normal sinus rhythm Hold Eliquis given concern for GI bleed/acute blood loss anemia (4) HLD (hyperlipidemia): On statin as outpatient (5) DVT prophylaxis: SCD/teds Anticoagulation on hold for anemia/GI bleed Disposition: Continue to monitor in medical telemetry, expected to be discharged home when medically stable Follow-up: Follow-up with Dr. Stein at [facility] Admission and Anticipated Discharge Date Admission Date: February 23, 2020 Results & Data Results & Data ([facility]) Vital Signs (Past 12 Hours) Vital Signs Temp Pulse Pulse Resp BP Pulse Ox 02/24/20 11:34 37.2 C 61 18 128/70 95 02/24/20 07:19 37.0 C 62 18 117/51 L 96 02/24/20 07:12 59 L 02/24/20 03:55 36.8 C 62 20 120/51 L 97 (1) HLD (hyperlipidemia) Hyperlipidemia type: unspecified Qualified Code(s): E78.5 - Hyperlipidemia, unspecified
[2020-02-24] MEDS ORDERED: LAVAGE SOLUTION 4000ML PO SCH (20:00)
[2020-02-25 06:31] LABS: Hematocrit (blood only) 30.9 % (37-47); Mean Corpuscular Hemoglobin 21.5 pg (25-34); Mean Corpuscular Hgb Conc 29.1 g/dL (32-36); Mean Corpuscular Volume 73.9 fL (80-100); Mean Platelet Volume 9.1 fL (7.4-10.4); Platelet Count 324 K/uL (130-400); RDW Coefficient of Variation 21.3 % (11.5-14.5); RDW Standard Deviation 56.1 fL (36.4-46.3); Red Blood Count 4.18 M/uL (4.2-5.4); White Blood Count 6.44 K/uL (4.8-10.8)
[2020-02-25 06:44] LABS: Anisocytosis Present; Basophils # (auto) 0.04 K/uL (0-0.2); Basophils % (auto) 0.6 %; Eosinophils # (auto) 0.06 K/uL (0-0.5); Eosinophils % (auto) 0.9 %; Hypochromasia Present; Immature Granulocytes # (auto) 0.01 K/uL (0.00-0.02); Immature Granulocytes % (auto) 0.2 %; Lymphocytes # (auto) 1.82 K/uL (1.2-3.4); Lymphocytes % (auto) 28.3 %; Microcytosis Present; Monocytes # (auto) 0.92 K/uL (0.11-0.59); Monocytes % (auto) 14.3 %; Neutrophils # (auto) 3.59 K/uL (1.4-6.5); Neutrophils % (auto) 55.7 %
--- NOTE | 2020-02-25 08:28 | Anesthesiology Consultation ---
Date of Service February 25, 2020 Assessment & Plan (1) Encounter for pre-operative examination: Chart Review Chart Review: Acceptable Risk for Surgery Consults Requested none ASA ASA3 Proposed Anesthesia Anesthesia Type: MAC Risk / Benefits Reviewed With: PT / POA / Parent / Guardian, Accepts Plan and Informed Consent Obtained History Surgery Operation Date: 02/25/20 16:30 Proposed Procedures p Colonoscopy EGD Dr. Mini Morse M.D. Height/Weight Height: 5 ft Weight: 66.9 kg Allergies Allergy/AdvReac Type Severity Reaction Status Date / Time Bactrim Allergy Unknown . Unverified 08/01/17 17:48 Sulfa (Sulfonamide Allergy Unknown . Unverified 02/23/20 13:27 Antibiotics) sulfamethoxazole Allergy Unknown . Unverified 02/23/20 13:27 trimethoprim Allergy Unknown . Verified 02/23/20 13:27 Medications Home Medications Medication Instructions Recorded Confirmed Last Taken calcium carbonate-vitamin D3 1 tab PO QAM 09/26/18 02/23/20 12/12/18 [Os-Ethan 500 + D3] furosemide [Lasix] 40 mg PO DAILY PRN 09/26/18 02/23/20 12/12/18 [id number]-uwzkdiqf-[id number] 1 tab PO QAM 09/26/18 02/23/20 12/12/18 rosuvastatin [Crestor] 10 mg PO Q2D 09/26/18 02/23/20 12/12/18 Eliquis 5 mg PO BID #60 tab 10/31/18 02/23/20 12/12/18 metoprolol succinate 50 mg PO BID #60 tab 10/31/18 02/23/20 Unknown docusate sodium [Colace] 2 tab PO DAILY 12/09/18 02/23/20 12/12/18 omeprazole 1 tab PO DAILY 12/09/18 02/23/20 12/12/18 amiodarone 200 mg PO DAILY 02/23/20 02/23/20 Unknown ferrous sulfate 325 mg PO TID 02/23/20 02/23/20 Unknown Active Medications Generic Name Dose Route Start Last Admin Trade Name Freq PRN Reason Stop Dose Admin Amiodarone HCl 200 mg 02/24/20 09:00 02/25/20 09:01 Cordarone PO 03/25/20 08:59 200 mg DAILY JAREK Administration Calcium Carbonate 1,250 mg 02/24/20 09:00 02/25/20 09:09 Os-Ethan 500 PO 03/25/20 08:59 Not Given QAM JAREK Docusate Sodium 200 mg 02/24/20 09:00 02/25/20 09:08 Colace PO 03/25/20 08:59 Not Given DAILY JAREK Ferrous Sulfate 325 mg 02/23/20 21:00 02/25/20 09:09 Feosol PO 03/24/20 20:59 Not Given TID JAREK Pantoprazole Sodium 40 mg/ 10 mls @ 5 mls/min 02/23/20 21:00 02/25/20 08:58 Syringe IV 03/24/20 20:59 5 mls/min BID JAREK Administration Metoprolol Succinate 50 mg 02/23/20 21:00 02/25/20 09:11 Toprol Xl PO 03/24/20 20:59 50 mg BID JAREK Administration Multivitamins/Minerals 1 tab 02/24/20 09:00 02/25/20 09:09 Multivitamin W/ Minerals Tab PO 03/25/20 08:59 Not Given QAM JAREK NPO Date Last Intake of Fluids: 02/24/20 Time Last Intake of Fluids: 01:00 Last Intake of Fluids Comment: Go lytle Date Last Intake of Solids: 02/23/20 Past Medical History Medical History GERD (gastroesophageal reflux disease) History of PSVT (paroxysmal supraventricular tachycardia) HLD (hyperlipidemia) Macular degeneration Osteoporosis PAF (paroxysmal atrial fibrillation) Exercise / Class Metabolic Activity II 4-5 Yardwork/Stairs/Walk up hill Past Family History Family History Father , age 65 Myocardial infarction Mother Coronary heart disease CHF (congestive heart failure) Sister Atrial fibrillation Past Surgical History Surgical History History of appendectomy History of History of cataract extraction History of cholecystectomy History of lumbar laminectomy History of total hysterectomy with bilateral salpingo-oophorectomy (BSO) Past Anesthesia History No Hx of Anesthesia Complications and No Family Hx of Anesthesia Complications History of PONV No Hx of PONV and No Hx of Motion Sickness Social History Smoking Status: Former smoker Smoking cigarettes per day: 10 Hx Alcohol Use: No Hx Substance Use: No substance use type: does not use Physical Exam Vital Signs Last Vital Signs Temp 99.0 F 02/25/20 10:19 Pulse 63 02/25/20 10:19 Resp 18 02/25/20 10:19 BP 187/63 H 02/25/20 10:19 Pulse Ox 98 02/25/20 10:19 ENMT Mouth: no dentition abnormality Thyromental Distance: > or= 3.5 Finger Breadths Mallampati Class: II Neck normal visual inspection Respiratory normal respiratory effort Auscultation: lungs clear to auscultation bilaterally Cardiovascular Rate/Rhythm: regular rate and regular rhythm Testing Laboratory Results 02/25/20 05:45 02/24/20 05:47 PT 10.8 Seconds (9.0-12.0) 02/23/20 13:00 INR 1.0 (0.9-1.1) 02/23/20 13:00 APTT 23.9 Seconds (21.0-31.0) 02/23/20 13:00 Blood Type O Negative 02/23/20 13:00 Antibody Screen POSITIVE A 02/23/20 13:00 Electrocardiogram Date: 02/23/20 Normal sinus rhythm, rate 65 bpm Nonspecific T wave abnormality Abnormal ECG When compared with ECG of 13-DEC-2018 06:40, Sinus rhythm has replaced Atrial flutter Vent. rate has decreased BY 43 BPM Nonspecific T wave abnormality has replaced inverted T waves in Anterior leads Confirmed by Valentino Rodríguez ([id number]) on 02/24/2020 6:49:33 AM Chest X-Ray Date: 12/12/18 IMPRESSION: Mild blunting of the bilateral costophrenic angles may be secondary to atelectasis or trace pleural effusions. Echocardiogram Date: 09/26/18 Normal LV chamber size with mod concentric LVH Normal LV systolic function, EF 55-60% No segmental LV wall motion abnormalities The presence of LA enlargement denotes diastolic dysfunction AV sclerosis Mild MR Severe LA enlargement Mild RA enlargement PASP of 41 mmHg Small loculated anterior pericardial effusion with stranding which signifies chronicity
[2020-02-25] MEDS: PANTOprazole 40 MG in SYRINGE 0 ML IV SCH ×2 (08:58→20:33)
[2020-02-25] MEDS: METOPROLOL SUCC 50MG EXT REL TAB PO SCH ×3 (08:59→20:29)
[2020-02-25] MEDS: AMIODARONE 200 MG TAB PO SCH (09:01)
[2020-02-25] MEDS: DOCUSATE SODIUM 100 MG CAP PO SCH (09:08)
[2020-02-25] MEDS: FERROUS SULFATE 325 MG TAB PO SCH ×3 (09:09→20:30)
[2020-02-25] MEDS: CALCIUM CARBONATE 1250MG TAB PO SCH (09:09)
[2020-02-25] MEDS: CEROVITE ADV FORMULA TAB PO SCH (09:09)
--- NOTE | 2020-02-25 09:23 | Gastroenterology Progress Note ---
Date of Service February 25, 2020 Assessment & Plan (1) Symptomatic anemia: 84 y/o female with symptomatic anemia, with improvement in HGB with pRBC transfusion. Plan is for EGD/colonoscopy today to evaluate for GI source. Please keep NPO. Admission and Anticipated Discharge Date Admission Date: February 23, 2020 Supervising Physician Co-Signing Physician Notes Egd and colon for evaluation of symptomatic anemia later today. [employer] has been held for evans 48 hours now. Subjective Patient seen and examined, chart reviewed. She received 2 units pRBCs yesterday; HGB improved to 9 today, BUN stable. She feels much better; less weak, short of breath. Completed another 1/2 prep of Golytely; stool is running clear. No melena, hematochezia, hematemesis, anemia. Review of Systems Respiratory: no cough and no dyspnea Cardiovascular: no chest pain Gastrointestinal: as per Subjective / HPI Physical Exam Constitutional: WD/WN, vitals as above less pale Respiratory: normal respiratory effort Cardiovascular: Rate/Rhythm: regular rate and regular rhythm Gastrointestinal (Abdomen): Inspection/Auscultation: abdomen normal to inspection and normal bowel sounds; abdomen not distended Percussion/Palpation: abdomen soft; abdomen nontender Skin: no rashes, warm and dry Psychiatric: A+Ox3, euthymic affect Results & Data ([facility]) Vital Signs (Past 12 Hours) Vital Signs Temp Pulse Pulse Resp BP BP Pulse Ox 02/25/20 07:43 36.9 C 57 L 18 137/55 L 97 02/25/20 07:13 57 L 02/25/20 04:29 36.7 C 58 L 18 148/55 H 97 02/25/20 00:19 66 02/24/20 23:41 36.4 C L 59 L 18 130/74 100 02/24/20 22:40 36.7 C 61 18 156/59 H 100 02/24/20 22:10 36.3 C L 68 18 156/70 H 98 02/24/20 21:40 36.8 C 65 20 160/84 H 97 02/24/20 21:25 36.7 C 68 18 155/62 H 96 Laboratory Results 02/25/20 02/23/20 Range/Units 05:45 13:00 WBC 6.44 (4.8-10.8) K/uL RBC 4.18 L (4.2-5.4) M/uL Hgb 9.0 L (12.0-16.0) g/dL Hct 30.9 L (37-47) % MCV 73.9 L (80-100) fL MCH 21.5 L (25-34) pg MCHC 29.1 L (32-36) g/dL RDW Std Deviation 56.1 H (36.4-46.3) fL RDW Coeff of Tere 21.3 H (11.5-14.5) % Plt Count 324 (130-400) K/uL MPV 9.1 (7.4-10.4) fL Immature Gran % (Auto) 0.2 % Neut % (Auto) 55.7 % Lymph % (Auto) 28.3 % [place] % (Auto) 14.3 % Eos % (Auto) 0.9 % Baso % (Auto) 0.6 % Neut # (Auto) 3.59 (1.4-6.5) K/uL Lymph # (Auto) 1.82 (1.2-3.4) K/uL [place] # (Auto) 0.92 H (0.11-0.59) K/uL Eos # (Auto) 0.06 (0-0.5) K/uL Baso # (Auto) 0.04 (0-0.2) K/uL Immature Gran # (Auto) 0.01 (0.00-0.02) K/uL Hypochromasia Present Anisocytosis Present Microcytosis Present Blood Type O Negative Antibody Screen POSITIVE A Antibody Identification Anti-D Antibody ID Comment Antigen Identification C Antigen - NEGATIVE Crossmatch See Detail
[2020-02-25] MEDS ORDERED: PROPOFOL IV EMULSION 10 MG/ML 20 ML VIAL IV ONE ×2 (10:32→11:29)
[2020-02-25] MEDS ORDERED: LIDOCAINE HCL 2% 2 ML VIAL/AMP(20MG/ML) INFIL ONE (10:32)
--- NOTE | 2020-02-25 11:25 | GI REPORT ---
Patient Name: Mandie David Procedure Date: 02/25/2020 10:34 AM Date of : 1935 Admit Type: Inpatient Age: 84 Gender: Female Attending MD: Eliza Morse M.d. Procedure: Upper GI endoscopy Providers: Eliza Morse M.d. Referring MD: Estela Hanna Indications: Anemia Medicines: Propofol per Anesthesia, Lidocaine Complications: No immediate complications. Estimated Blood Loss: Estimated blood loss: none. Procedure: Pre-Anesthesia Assessment: - Patient identification and proposed procedure were verified prior to the procedure by the physician, the nurse and the anesthesiologist. The procedure was verified in the pre-procedure area. - Prior to the procedure, a History and Physical was performed, and patient medications, allergies and sensitivities were reviewed. The patient's tolerance of previous anesthesia was reviewed. - The risks and benefits of the procedure and the sedation options and risks were discussed with the patient. All questions were answered and informed consent was obtained. After obtaining informed consent, the endoscope was passed under direct vision. Throughout the procedure, the patient's blood pressure, pulse, and oxygen saturations were monitored continuously. The Endoscope was introduced through the mouth, and advanced to the second part of duodenum. The upper GI endoscopy was accomplished without difficulty. The patient tolerated the procedure well. Findings: The examined esophagus appeared normal. Biopsies were taken from the distal esophagus with a cold forceps for histology. The pathology specimen was placed into Bottle C. A large hiatal hernia was present between 30 and 38 cm rom the incisors with a single non bleeding erosion noted. The examined stomach otherwise appeared normal. Biopsies were taken with a cold forceps for Helicobacter pylori testing. The pathology specimen was placed into Bottle B. The duodenal bulb and second portion of the duodenum were normal. Biopsies for histology were taken with a cold forceps for evaluation of celiac disease. The pathology specimen was placed into Bottle A. Verification of patient identification for the specimen was done by the physician and nurse using the patient's name and medical record number. Impression: - Normal esophagus. Biopsied. - Large hiatal hernia with a single erosion. - Normal stomach. Biopsied. - Normal duodenal bulb and second portion of the duodenum. Biopsied. Recommendation: - Await pathology results. - Proceed to colonoscopy. Boris Shultz M.d. 02/25/2020 11:25:09 AM This report has been signed electronically. Note Initiated On: 02/25/2020 10:34 AM Number of Addenda: 0 I attest to the content of the Intraoperative Record and orders documented therein, exceptions below {[id number]}
--- NOTE | 2020-02-25 11:31 | GI REPORT ---
Patient Name: Mandie David Procedure Date: 02/25/2020 10:33 AM Date of : 1935 Admit Type: Inpatient Age: 84 Gender: Female Attending MD: Eliza Morse M.d. Procedure: Colonoscopy Providers: Eliza Morse M.d. Referring MD: Estela Hanna Indications: Anemia Medicines: Propofol per Anesthesia, Lidocaine Complications: No immediate complications. Estimated Blood Loss: Estimated blood loss: none. Procedure: Pre-Anesthesia Assessment: - Patient identification and proposed procedure were verified prior to the procedure by the physician, the nurse and the anesthesiologist. The procedure was verified in the pre-procedure area. - Prior to the procedure, a History and Physical was performed, and patient medications, allergies and sensitivities were reviewed. The patient's tolerance of previous anesthesia was reviewed. - The risks and benefits of the procedure and the sedation options and risks were discussed with the patient. All questions were answered and informed consent was obtained. After I obtained informed consent, the scope was passed under direct vision. Throughout the procedure, the patient's blood pressure, pulse, and oxygen saturations were monitored continuously. The scope was introduced through the anus and advanced to the cecum, identified by appendiceal orifice and ileocecal valve. The colonoscopy was performed with some difficulty - aided with lavage and shortening and reduction of the scope. The patient tolerated the procedure well. The quality of the bowel preparation was fair. Findings: The examined colon appeared normal. Two sessile polyps were found in the ascending colon. The polyps were 8 to 10 mm in size and were removed with a cold snare. Resection and retrieval were complete. The pathology specimen was placed into Bottle D. A 25 mm polyp was found in the rectum. The polyp was sessile and was removed piecemeal with a hot snare. Resection and retrieval were complete. The pathology specimen was placed into Bottle E. Verification of patient identification for the specimen was done by the physician and nurse using the patient's name and medical record number. A 12 mm polyp was found in the rectum. The polyp was sessile and was removed with a hot snare. Resection and retrieval were complete. The pathology specimen was placed into Bottle F. Verification of patient identification for the specimen was done by the physician and nurse using the patient's name. To prevent bleeding after the polypectomy, one hemostatic clip was successfully placed (MR conditional). There was no bleeding at the end of the procedure. Internal and external and internal hemorrhoids were found during retroflexion and perianal exam. Impression: - Preparation of the colon was fair especially in the proximal colon. - The entire examined colon is normal. - Two 8 to 10 mm polyps in the ascending colon, removed with a cold snare. Resected and retrieved. - One 25 mm polyp in the rectum, removed piecemeal with a hot snare. Resected and retrieved. - One 12 mm polyp in the rectum, removed with a hot snare. Resected and retrieved. Clip (MR conditional) was placed. - Internal and external hemorrhoids. Recommendation: - Await pathology results. - Repeat colonoscopy for surveillance based on pathology results. - Resume Eliquis on Saturday02/27/20. - Clear liquid diet later today, advance as tolerated if no signs of bleeding. - Return to the floor when ready. Eliza Morse M.D. Eliza Morse M.d. 02/25/2020 11:31:12 AM This report has been signed electronically. Note Initiated On: 02/25/2020 10:33 AM Number of Addenda: 0 I attest to the content of the Intraoperative Record and orders documented therein, exceptions below {[id number]}
--- NOTE | 2020-02-25 11:44 | Anesthesiology Progress Note ---
Date of Service February 25, 2020 Anesthesia Post Procedure Vital Signs Vital Signs: Temp Pulse Pulse Resp BP BP BP 02/25/20 11:27 54 L 16 149/54 H 02/25/20 10:19 99.0 F 63 18 187/63 H 02/25/20 07:43 98.4 F 57 L 18 137/55 L 02/25/20 07:13 57 L 02/25/20 04:29 98.1 F 58 L 18 148/55 H 02/25/20 00:19 66 02/24/20 23:41 97.5 F L 59 L 18 130/74 02/24/20 22:40 98.1 F 61 18 156/59 H 02/24/20 22:10 97.3 F L 68 18 156/70 H 02/24/20 21:40 98.2 F 65 20 160/84 H 02/24/20 21:25 98.1 F 68 18 155/62 H 02/24/20 21:06 98.4 F 63 18 162/58 H 02/24/20 18:49 98.8 F 61 18 137/68 02/24/20 17:55 62 02/24/20 17:49 99.1 F 61 18 138/58 L 02/24/20 17:19 99.0 F 61 18 146/53 H 02/24/20 16:49 99.0 F 62 18 149/70 H 02/24/20 16:34 98.8 F 62 18 131/72 02/24/20 16:10 99.5 F 62 18 149/73 H 02/24/20 15:57 98.6 F 61 18 127/67 Pulse Ox 02/25/20 11:27 100 02/25/20 10:19 98 02/25/20 07:43 97 02/25/20 07:13 02/25/20 04:29 97 02/25/20 00:19 02/24/20 23:41 100 02/24/20 22:40 100 02/24/20 22:10 98 02/24/20 21:40 97 02/24/20 21:25 96 02/24/20 21:06 98 02/24/20 18:49 95 02/24/20 17:55 02/24/20 17:49 95 02/24/20 17:19 95 02/24/20 16:49 95 02/24/20 16:34 95 02/24/20 16:10 95 02/24/20 15:57 96 Transfer of Care Handoff Completed per policy Notes Mental Status: alert / awake / arousable and participated in evaluation Patient Amnestic to Procedure: Yes Nausea / Vomiting: adequately controlled Pain: adequately controlled Airway Patency, RR, SpO2: stable & adequate BP & HR: stable & adequate Hydration State: stable & adequate Anesthetic Complications: no major complications apparent and Pt Satisfied with anesthetic care
--- NOTE | 2020-02-25 14:40 | Hospitalist Progress Note ---
Date of Service February 25, 2020 Assessment & Plan (1) Symptomatic anemia: (2) Acute GI bleeding: Acute blood loss anemia in setting of suspected GI bleed Symptomatically much improved, Hemoglobin stable at 9, Status post 2 units of PRBC transfusion Status post EGD today: Showed large hiatal hernia, normal examined esophagus stomach GI recommends outpatient surgery follow-up for hiatal hernia repair Patient presented with feeling of weakness, dizzy spell lightheadedness In the ER: Hemoglobin 7.2, hematocrit 28.1, on 12/13/2018 hemoglobin was 13.2, hematocrit was 40.6, +FOCB Possible GI bleed, history of paroxysmal A. fib on chronic anticoagulation with Eliquis therapy Patient is reluctant for any surgery, Diet advanced to solid tolerating well, will observe on telemetry overnight, if no further evidence of GI bleed, hemoglobin stayed stable, plan to discharge home tomorrow Prior GI, Eliquis can be after 48 hours Chronic diastolic CHF Volume status stable, Last echo 10/2019 showed an EF of 55% with grade 2 diastolic dysfunction. Normal volume status (3) PAF (paroxysmal atrial fibrillation): Continue amiodarone and metoprolol for rate and rhythm control Currently normal sinus rhythm Eliquis kept on hold for concern of acute blood loss anemia/GI bleed EGD as above Eliquis can be resumed on the next Saturday per GI recommendation (4) HLD (hyperlipidemia): On statin as outpatient (5) DVT prophylaxis: SCD/teds Anticoagulation on hold for anemia/GI bleed Disposition: Expected to be discharged home tomorrow if remains clinically stable Follow-up: Follow-up with Dr. Stein at [facility] Admission and Anticipated Discharge Date Admission Date: February 23, 2020 Subjective Patient States she feels very well today Status post EGD earlier No evidence of GI bleed Hemoglobin improved to 9 no complaint of dizzy spell lightheadedness, energy is back to baseline, diet advanced to solid tolerating well Review of Systems Review of Systems: All systems reviewed & are unremarkable except as noted in HPI & below Physical Exam Physical Exam: Constitutional: WD/WN, vitals as above, NAD, sitting up in bed, pleasant, conversing easily Head: Normocephalic, Atraumatic Eyes: PERRL, conjunctivae normal, anicteric sclerae ENMT: external ear and nose normal, oropharynx normal Neck: trachea midline, no thyromegaly normal visual inspection Respiratory: normal respiratory effort, lungs clear to auscultation, no wheeze, rales, rhonchi. Normal insp/exp effort, no accessory muscle use Cardiovascular: RRR, 2/6 PAUL best noted RUSB, no edema Vessels: no JVD or carotid bruit Chest: normal inspection of chest Abdomen: normal bowel sounds, soft, nontender, no hepatosplenomegaly Musculoskeletal: no cyanosis or clubbing, extremities motor strength 5/5 Skin: no rashes, warm and dry normal turgor Neurologic: PERRL, EOMI, accommodation nl, no face palsy, no dysarthria CN's II-XI intact bilaterally and moves all extremities Psychiatric: A+Ox3, euthymic affect Lymphatic: no cervical or axillary lymphadenopathy : deferred Results & Data Results & Data ([facility]) Vital Signs (Past 12 Hours) Vital Signs Temp Pulse Pulse Resp BP BP Pulse Ox 02/25/20 12:16 36.9 C 56 L 20 166/79 H 98 02/25/20 11:59 54 L 18 157/62 H 100 02/25/20 11:44 53 L 18 142/68 H 100 02/25/20 11:27 54 L 16 149/54 H 100 02/25/20 10:19 37.2 C 63 18 187/63 H 98 02/25/20 07:43 36.9 C 57 L 18 137/55 L 97 02/25/20 07:13 57 L 02/25/20 04:29 36.7 C 58 L 18 148/55 H 97 (1) HLD (hyperlipidemia) Hyperlipidemia type: unspecified Qualified Code(s): E78.5 - Hyperlipidemia, unspecified
--- NOTE | 2020-02-26 07:50 | Anesthesiology Progress Note ---
Date of Service February 26, 2020 Anesthesia Post Procedure Vital Signs Vital Signs: Temp Pulse Pulse Resp BP BP Pulse Ox 02/26/20 07:12 36.9 C 63 18 154/70 H 99 02/26/20 07:00 61 02/26/20 04:12 36.9 C 57 L 19 151/66 H 94 02/26/20 00:02 63 02/25/20 22:06 37.6 C H 66 20 159/67 H 94 02/25/20 19:05 37.5 C 62 18 129/67 95 02/25/20 15:16 65 02/25/20 15:02 37.0 C 63 18 111/47 L 97 02/25/20 12:16 36.9 C 56 L 20 166/79 H 98 02/25/20 11:59 54 L 18 157/62 H 100 02/25/20 11:44 53 L 18 142/68 H 100 02/25/20 11:27 54 L 16 149/54 H 100 02/25/20 10:19 37.2 C 63 18 187/63 H 98 Notes Mental Status: alert / awake / arousable and participated in evaluation Patient Amnestic to Procedure: Yes Nausea / Vomiting: adequately controlled Pain: adequately controlled Airway Patency, RR, SpO2: stable & adequate BP & HR: stable & adequate Hydration State: stable & adequate Anesthetic Complications: no major complications apparent
[2020-02-26] MEDS: AMIODARONE 200 MG TAB PO SCH (08:50)
[2020-02-26] MEDS: CEROVITE ADV FORMULA TAB PO SCH (08:50)
[2020-02-26] MEDS: CALCIUM CARBONATE 1250MG TAB PO SCH (08:50)
[2020-02-26] MEDS: DOCUSATE SODIUM 100 MG CAP PO SCH (08:50)
[2020-02-26] MEDS: PANTOprazole 40 MG in SYRINGE 0 ML IV SCH (08:50)
[2020-02-26] MEDS: FERROUS SULFATE 325 MG TAB PO SCH ×2 (08:50→13:32)
[2020-02-26] MEDS: METOPROLOL SUCC 50MG EXT REL TAB PO SCH (08:50)
--- NOTE | 2020-02-26 12:34 | Hospitalist Progress Note ---
Date of Service February 26, 2020 Assessment & Plan (1) Symptomatic anemia: (2) Acute GI bleeding: Acute blood loss anemia in setting of suspected GI bleed Symptomatically much improved, Hemoglobin remains stable at 9, Status post 2 units of PRBC transfusion Status post EGD on 02/25/2020: Showed large hiatal hernia, normal examined esophagus and stomach Colonoscopy on 02/25/2020: Shows 2 polyps at ascending colon, removed, pathology pending GI recommends outpatient surgery follow-up for hiatal hernia repair Patient is stable to be discharged home, asked to resume Eliquis tomorrow on 02/27/2020 Repeat blood work, CBC on next physician visit on 03/01/2020 Patient presented with feeling of weakness, dizzy spell lightheadedness In the ER: Hemoglobin 7.2, hematocrit 28.1, on 12/13/2018 hemoglobin was 13.2, hematocrit was 40.6, +FOCB Possible GI bleed, history of paroxysmal A. fib on chronic anticoagulation with Eliquis therapy EGD and colonoscopy report as above H&H has been stable since blood transfusion Chronic diastolic CHF Volume status stable, Last echo 10/2019 showed an EF of 55% with grade 2 diastolic dysfunction. Normal volume status (3) PAF (paroxysmal atrial fibrillation): Continue amiodarone and metoprolol for rate and rhythm control Currently normal sinus rhythm Eliquis was kept on hold for concern of acute blood loss anemia/GI bleed EGD as above Eliquis can be resumed on the next Saturday02/27/2020 per GI recommendation (4) HLD (hyperlipidemia): On statin as outpatient (5) DVT prophylaxis: SCD/teds Disposition: Stable to be discharged home today Follow-up: Follow-up with Dr. Stein at [facility] clinic Admission and Anticipated Discharge Date Admission Date: February 23, 2020 Subjective Doing fairly well, no complaint of shortness of breath, no dizzy spell or lightheadedness Did not had any bowel movement so far, tolerating solid diet, no abdominal pain no nausea vomiting No further episode of GI bleed hemoglobin stable at 9 Stable to be discharged home today Review of Systems Review of Systems: All systems reviewed & are unremarkable except as noted in HPI & below Physical Exam Physical Exam: Constitutional: WD/WN, vitals as above, NAD, sitting up in b ed, pleasant, conversing easily Head: Normocephalic, Atraumatic Eyes: PERRL, conjunctivae normal, anicteric sclerae ENMT: external ear and nose normal, oropharynx normal Neck: trachea midline, no thyromegaly normal visual inspection Respiratory: normal respiratory effort, lungs clear to auscultation, no wheeze, rales, rhonchi. Normal insp/exp effort, no accessory muscle use Cardiovascular: RRR, 2/6 PAUL best noted RUSB, no edema Vessels: no JVD or carotid bruit Chest: normal inspection of chest Abdomen: normal bowel sounds, soft, nontender, no hepatosplenomegaly Musculoskeletal: no cyanosis or clubbing, extremities motor strength 5/5 Skin: no rashes, warm and dry normal turgor Neurologic: PERRL, EOMI, accommodation nl, no face palsy, no dysarthria CN's II-XI intact bilaterally and moves all extremities Psychiatric: A+Ox3, euthymic affect Results & Data Results & Data ([facility]) Vital Signs (Past 12 Hours) Vital Signs Temp Pulse Pulse Resp BP Pulse Ox 02/26/20 11:20 36.8 C 63 20 157/63 H 96 02/26/20 07:12 36.9 C 63 18 154/70 H 99 02/26/20 07:00 61 02/26/20 04:12 36.9 C 57 L 19 151/66 H 94 (1) HLD (hyperlipidemia) Hyperlipidemia type: unspecified Qualified Code(s): E78.5 - Hyperlipidemia, unspecified
--- NOTE | 2020-02-26 13:50 | Discharge Summary ---
Date of Service February 26, 2020 Admission HPI Per Admitting Provider This is an 84-year-old female who has significant past medical history of PAF anticoagulated on Eliquis, HLD, macular degeneration, seen osteoporosis, GERD, vitamin D deficiency who presents to ED secondary to being referred to due to symptomatic iron deficiency anemia. Patient elicits since August 2019 she has been having increasing shortness of breath with exertion, fatigue, and extreme weakness. In October she was seen and evaluated by cardiology Dr. Fairchild and underwent a thorough cardiac evaluation including echocardiogram. It was felt that her symptoms were not related to cardiac in origin. Last year she did have 3 hospitalizations due to her atrial fibrillation but this has since been controlled and she remains on Eliquis for thrombotic control. Symptoms have been worsening since August and she now reports significant shortness of breath even with minimal exertion. With standing she does occasionally lightheaded and dizzy but denies any syncope. She denies any recent fever, chills, sweats, chest pain, palpitations, nausea, vomiting, hematemesis, diarrhea, melena, hematochezia, abdominal pain, dysuria, increased urgency or frequency with urination, hematuria. She was started on ferrous sulfate 3 times daily yesterday and has so far completed 3 doses. She tends to run on the constipated side so she does take stool softener daily. She denies any alcohol use, NSAID use. She primarily uses acetaminophen for pain control. She does have a remote history of gastritis denies any history of PUD. Her last colonoscopy was in 1977, "after my sister was diagnosed with precancerous cells in her colon." She is an identical twin. In ED patient remained hemodynamically stable. Lab work notable for H&H 7.2 and 28.1, MCV low 71.7, MCH 18.4, platelet 483, BUN 17, creatinine 0.78, stool occult blood positive. She was typed and crossed for 1 unit. Principal Diagnosis ANEMIA /POSSIBLE GI BLEED HX OF PAROXSYSMAL AFIB LARGE HIATAL HERNIA Discharge Exam Constitutional WD/WN, vitals as above no acute distress Eyes + anicteric sclerae ENMT Mouth: no dentition abnormality Mallampati Class: II Neck normal visual inspection Respiratory normal respiratory effort, lungs clear to auscultation normal respiratory effort Auscultation: lungs clear to auscultation bilaterally Cardiovascular RRR, no murmur, no edema Rate/Rhythm: regular rate and regular rhythm Gastrointestinal (Abdomen) normal bowel sounds, soft, nontender, no hepatosplenomegaly Inspection/Auscultation: abdomen normal to inspection and normal bowel sounds; abdomen not distended Percussion/Palpation: abdomen soft; abdomen nontender Skin no rashes, warm and dry Psychiatric A+Ox3, euthymic affect Discharge Data Allergies Allergy/AdvReac Type Severity Reaction Status Date / Time Bactrim Allergy Unknown . Unverified 08/01/17 17:48 Sulfa (Sulfonamide Allergy Unknown . Unverified 02/23/20 13:27 Antibiotics) sulfamethoxazole Allergy Unknown . Unverified 02/23/20 13:27 trimethoprim Allergy Unknown . Verified 02/23/20 13:27 Consultations 02/23/20 14:39 ED Decision to Admit Stat 02/23/20 14:42 Consult Gastroenterology Routine 02/23/20 15:55 Consult Case Management - Discharge Planning Routine Procedures Performed Operation Date: 02/25/20 16:30 Actual Procedures p EGD Biopsy Cytology - Eliza Morse M.D. s Colonoscopy Polypectomy - Eliza Morse M.D. Hospital Course (1) Symptomatic anemia: (2) Acute GI bleeding: Acute blood loss anemia in setting of suspected GI bleed Symptomatically much improved, Hemoglobin remains stable at 9, Status post 2 units of PRBC transfusion Status post EGD on 02/25/2020: Showed large hiatal hernia, normal examined esophagus and stomach Colonoscopy on 02/25/2020: Shows 2 polyps at ascending colon, removed, pathology pending GI recommends outpatient surgery follow-up for hiatal hernia repair Patient is stable to be discharged home, asked to resume Eliquis tomorrow on 02/27/2020 Repeat blood work, CBC on next physician visit on 03/01/2020 Patient presented with feeling of weakness, dizzy spell lightheadedness In the ER: Hemoglobin 7.2, hematocrit 28.1, on 12/13/2018 hemoglobin was 13.2, hematocrit was 40.6, +FOCB Possible GI bleed, history of paroxysmal A. fib on chronic anticoagulation with Eliquis therapy EGD and colonoscopy report as above H&H has been stable since blood transfusion Chronic diastolic CHF Volume status stable, Last echo 10/2019 showed an EF of 55% with grade 2 diastolic dysfunction. Normal volume status (3) PAF (paroxysmal atrial fibrillation): Continue amiodarone and metoprolol for rate and rhythm control Currently normal sinus rhythm Eliquis was kept on hold for concern of acute blood loss anemia/GI bleed EGD as above Eliquis can be resumed on the next Saturday02/27/2020 per GI recommendation (4) HLD (hyperlipidemia): On statin as outpatient (5) DVT prophylaxis: SCD/teds Disposition: Stable to be discharged home today Follow-up: Follow-up with Dr. Stein at [facility] Total Time Total Time Spent Total Time Spent (In Minutes): 35 mins Total Time Includes: Examination of the Patient, Discharge Planning and Medication Reconciliation Discharge Plan Discharge Items Patient Disposition: Home - Self-Care Reason For Visit: IRON DEFICIENCY ANEMIA Discharge Diagnosis: ANEMIA /POSSIBLE GI BLEED HX OF PAROXSYSMAL AFIB LARGE HIATAL HERNIA Activity: Resume your previous activity Non-emergency contact: Primary Care Provider Call non-emergency contact if: you have any medication questions Follow-up/Referrals: Carter Wray MD [Physician] - (Follow-up with surgery Dr. Wray in 2 to 3 weeks, to discuss about treatment options for large hiatal hernia) Ida Guzman MD [Outside Practitioners] - 03/01/20 12:00 pm (03/01/2020 12:00 PM Provider Ida Marr MD Department Internal Medicine [facility] ) Diet: Heart Healthy Ambulatory Orders: Complete Blood Count no Diff (Routine) Timeframe: 20200301 Location: Determined by Patient Ordered By: Estela Madrigal Attending Provider Instructions: Can start taking Eliquis from tomorrow 02/27/2020 Do not take high-dose aspirin, Aleve, Advil, naproxen, Motrin, ibuprofen: Can cause worsening of acid reflux stomach inflammation, and bleeding Please notify your family physician with any recurrence of generalized weakness, dizzy spell, lightheadedness, shortness of breath with activity Two polyps were removed from your colon, follow-up with gastroenterology for pathology report, You will need repeat colonoscopy in 5 years, GI clinic will coordinate with you to schedule Follow-up with general surgery for discussing option for treatment of large hiatal hernia, which can continue to cause worsening of acid reflux, inflammation of stomach, bleeding complication while on Eliquis Pending Studies at Discharge: Yes Studies:: Lab: Complete blood count to assess anemia on 03/01/2020 Stand-Alone Forms: [facility], Smoking Cessation Medications and DC Order Prescriptions: Continued metoprolol succinate 50 mg Tablet Extended Release 24 Hr 50 mg PO BID Qty: 60 RF: 3 Eliquis 5 mg Tablet 5 mg PO BID Qty: 60 RF: 1 calcium carbonate-vitamin D3 [Os-Ethan 500 + D3] 500 mg(1,250mg) -200 unit Tablet 1 tab PO QAM RF: 0 furosemide [Lasix] 40 mg Tablet 40 mg PO DAILY PRN (Reason: Fluid Retention) RF: 0 vaoeuafevdgt-ijrzgbhu-qysztn Tablet 1 tab PO QAM RF: 0 rosuvastatin [Crestor] 10 mg Tablet 10 mg PO Q2D RF: 0 docusate sodium [Colace] 100 mg Capsule 2 tab PO DAILY RF: 0 omeprazole 20 mg Capsule,Delayed Release(Dr/Ec) 1 tab PO DAILY RF: 0 amiodarone 200 mg tablet 200 mg PO DAILY RF: 0 ferrous sulfate 325 mg (65 mg iron) Tablet 325 mg PO TID RF: 0 Discharge Orders: Discharge Order (Routine); Ordered 02/26/20 Ordered By: Estela Meyer/Other Patient Handouts: Anemia, What Is a Hiatal Hernia?, GERD Lifestyle Changes, Tips to Control Acid Reflux Admission Data Admit Date/Time: 02/23/20 14:42 Attending Provider: Estela Hanna Admit Provider: Brittnee Head Primary Care Provider: Morgan Llamas Other Providers: Brittnee Head ; Eliza Morse Other Interventions: Discharge Summary Assessment (RN) Last Done: 02/26/20 13:25
== END 2020-02-26 14:58 | disposition home or self-care (01) | DRG 378 ==
LOC: ED 12:34 → SUATTDRO 14:42 → 2N 14:42

== ENCOUNTER 2022-10-04 16:47 | Inpatient (IN) ==
[2022-10-04] MEDS ORDERED: ALBUT/IPRATROP 3MG/0.5MG NEB 3 ML VIAL NEB STA (17:07)
--- NOTE | 2022-10-04 17:07 | ED Triage Note ---
Date of Service October 04, 2022 History of Present Illness This patient was briefly evaluated while in triage. An abbreviated physical exam was performed. This patient is a 87-year-old Female who presents to the ED for evaluation of SOB. Symptoms started last week, but is getting progressively worse. Had only been SOB with exertion, but this morning she is SOB even with rest. She is now wheezing and feels very SOB. Denies any chest pain, but feels like her chest is tight. Denies any fevers, cough, or URI symptoms. Denies any abdominal pain, nausea, or vomiting. She is on Eliquis for Afib. No history of blood clots or bleeding disorders. Does have a history of anemia. Had sigmoidoscopy 2 days ago for history of prior colon cancer, but states that this sigmoidoscopy looked good. Moved her bowels today normally. Denies hematochezia, melena, hematuria, hemoptysis, or hematemesis. Physical Exam GENERAL: Non-toxic and in no acute distress. HEENT: Normocephalic. PERRLA. EOMI. SKIN: Capillary refill <2 seconds. HEART: Regular rate and rhythm. LUNGS: Clear to auscultation. Intermittent scattered wheezing without rales or rhonchi. No accessory muscle use or retractions. ABDOMEN: Bowel sounds normoactive. No guarding or rigidity. No tenderness to palpation. NEURO: Alert and oriented. No obvious neurological deficits. PSYCH: Patient is pleasant and answers all questions appropriately. Initial orders for labs and / or imaging were placed and patient was placed in the waiting area until a bed is available. Please see further documentation for the full ED course.
--- NOTE | 2022-10-04 17:22 | XRay Report ---
XR chest 1V portable CLINICAL HISTORY: Dyspnea TECHNIQUE: Single frontal radiograph of the chest was obtained. Comparison: Comparison is made to chest and abdomen radiographs 03/31/2022 FINDINGS: No lines and tubes are seen. Cardiomegaly is noted. The lungs are clear. No evidence of pleural effus ion or pneumothorax. IMPRESSION: No acute abnormalities and in particular no evidence of pneumonia. ACT 112: Negative or not required by law. Electronically signed by: Otilio Hummel M.D. 10/04/2022 5:20 PM
[2022-10-04 18:34] LABS: Basophils # (auto) 0.03 K/uL (0-0.2); Basophils % (auto) 0.4 %; Eosinophils # (auto) 0.09 K/uL (0-0.50); Eosinophils % (auto) 1.1 %; Hematocrit (blood only) 37.6 % (37.0-47.0); Hemoglobin 11.4 g/dl (12.0-16.0); Immature Granulocytes # (auto) 0.02 K/uL (0.01-0.20); Immature Granulocytes % (auto) 0.2 %; Lymphocytes # (auto) 1.85 K/uL (1.2-3.4); Lymphocytes % (auto) 22.8 %; Mean Corpuscular Hemoglobin 24.5 pg (25.0-34.0); Mean Corpuscular Hgb Conc 30.3 g/dL (32.0-36.0); Mean Corpuscular Volume 80.9 fL (80.0-100.0); Mean Platelet Volume 10.4 fL (9.4-12.4); Monocytes # (auto) 0.77 K/uL (0.11-0.59); Monocytes % (auto) 9.5 %; Neutrophils # (auto) 5.36 K/uL (1.40-6.50); Platelet Count 425 K/uL (130-400); RDW Coefficient of Variation 17.6 % (11.5-14.5); RDW Standard Deviation 51.4 fL (36.4-46.3); Red Blood Count 4.65 M/uL (4.20-5.40); White Blood Count 8.12 K/ul (4.8-10.8)
[2022-10-04 18:47] LABS: Alanine Aminotransferase 14 U/L (7-52); Albumin Globulin Ratio 1.5 (0.9-2); Albumin Level 4.3 gm/dl (3.4-5.0); Alkaline Phosphatase 95 U/L (34-104); Anion Gap 5 (3-11); Aspartate Aminotransferase 17 U/L (13-39); BUN Creatinine Ratio 33.3 (10-20); Bilirubin,Total 0.5 mg/dl (0.2-1.0); Blood Urea Nitrogen 21 mg/dl (6-23); Carbon Dioxide 27 mmol/L (21-32); Chloride 109 mmol/L (98-107); Est GFR (African American) 92.2 ml/min; Est GFR (Non-African American) 79.5 ml/min; Globulin 2.8 gm/dl (2.5-4.0); Glucose 93 mg/dl (70-99(Fasting)); Magnesium 2.2 mg/dl (1.7-2.4); Potassium 3.7 mmol/L (3.5-5.1); Sodium 141 mmol/L (136-145); Total Protein 7.1 gm/dl (6.0-8.3)
[2022-10-04 18:53] LABS: Troponin I High Sensitivity 6.2 pg/ml (0-14)
[2022-10-04 18:59] LABS: Partial Thromboplastin Time 28.4 Seconds (21.0-31.0); Prothrombin Time 10.8 Seconds (9.0-12.0)
[2022-10-04] MEDS ORDERED: hydrALAZINE HCL 20 MG/ML VIAL IV ONE (21:17)
[2022-10-04] MEDS ORDERED: LEVALBUTEROL 1.25MG/0.5ML NEB NEB STA (21:18)
[2022-10-04 22:37] LABS: Appearance Urine Clear (Clear); Bacteria Urine Automated Negative (Negative); Bilirubin Urine Negative (Negative); Blood Urine Negative (Negative); Cast Urine Automated 0 /lpf (0-5); Color Urine Yellow; Glucose Urine UA Negative (Negative); Ketones Urine Trace (Negative); Leukocyte Esterase Urine Trace (Negative); Nitrite Urine Negative (Negative); Protein Urine Negative (Negative); RBC Urine Automated 0-4 /hpf (0-4); Specific Gravity Urine 1.007 (1.000-1.030); Urobilinogen Urine Negative (Negative)
--- NOTE | 2022-10-04 23:02 | History and Physical Report ---
DATE OF ADMISSION: 10/04/2022. CHIEF COMPLAINT: Dyspnea on exertion and chest tightness. HISTORY OF PRESENT ILLNESS: This is an 87-year-old female with past medical history significant for hyperlipidemia, hypothyroidism, paroxysmal atrial fibrillation, , paroxysmal SVT, chronic superficial gastritis with bleeding, hypertension, vitamin D deficiency, GERD, senile osteoporosis, macular degeneration, history of adenomatous colonic polyps, who presents with dyspnea on exertion and chest tightness. The patient says she has this shortness of breath going on for like one and a half weeks, but it seemed to improve. She just had a sigmoidoscopy on last Saturday because of adenomatous polyp in the past and there was no evidence of residual polyp tissue and biopsies were done. The patient states she felt well next day, but again today morning she felt very short of breath and she was scared, that is the reason she called daughter and brought in here. Daughter thinks that she has some wheezing. Here currently, she is resting comfortably, saturating okay on the room air. The patient says while resting she is okay, but while ambulating she gets some chest tightness and also shortness of breath. She has some headache now. Vision is okay. 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 No difficulty swallowing. No cough, no fevers. Today, her appetite is down. Denies any nausea or vomiting, no abdominal pain. Normal bowel and bladder movements. She gets swelling in the legs and she uses Lasix as needed. The patient has some history of anemia and GI bleed in the past and worried about that. Hemoglobin is 11.4 today. The patient's twin sister was diagnosed with asthma couple of years ago and she is worried she also could be developing asthma. ALLERGIES: SULFA, ANTIBIOTICS, EPINEPHRINE. PAST MEDICAL HISTORY: As mentioned above. PAST SURGICAL HISTORY: Appendectomy, right knee arthroplasty, , colonoscopy, EGD, electric cardioversion, incision of the breast lesion, sigmoidoscopy, single lumbar laminectomy, removal of oviducts, bilateral cataract surgery, cholecystectomy, total abdominal hysterectomy with removal of tubes. MEDICATIONS: Tylenol Extra Strength 1000 mg p.o. q. 6 hours p.r.n., amiodarone 200 mg p.o. daily, amlodipine 5 mg p.o. daily, calcium plus vitamin D one tablet p.o. b.i.d., Colace 200 mg p.o. daily, Eliquis 5 mg p.o. b.i.d., Lasix 40 mg p.o. daily p.r.n., levothyroxine 88 mcg p.o. daily, metoprolol succinate 50 mg p.o. b.i.d., omeprazole 20 mg p.o. daily, Crestor 10 mg p.o. daily, PreserVision AREDS one tablet p.o. b.i.d. FAMILY HISTORY: Significant for father had [place]; mother has CAD, CHF; sister has irregular heart rhythm and arthritis; daughter has arthritis and von Willebrand and asthma; another daughter has autoimmune cirrhosis and von Willebrand. SOCIAL HISTORY: Currently , lives alone. Quit smoking in 1960s. Smoked half pack a day for 4 years. No alcohol, no drug use. REVIEW OF SYSTEMS: As per HPI. Rest of the review of systems is negative. PHYSICAL EXAMINATION: GENERAL: The patient is old and frail, not in acute distress. VITAL SIGNS: Temperature 36.8, pulse 56, respiratory rate 22, blood pressure 201/68, oxygen 96% on room air. HEENT: Pupils equal, round and reactive to light. Oral mucosa moist. NECK: No JVD, no neck masses. CARDIOVASCULAR: S1 and S2 heard. Regular rate and rhythm. No murmur, no gallop. RESPIRATORY SYSTEM: Normal AP diameter. No accessory muscle use. No wheezing, no crackles. ABDOMEN: Soft, bowel sounds present, nontender, no distention. CENTRAL NERVOUS SYSTEM: Alert and oriented. Speech is clear. No facial droop. Obeys simple commands. Moves extremities. EXTREMITIES: Lower extremity edema present, no erythema seen. LABORATORY DATA: WBC 8.1, hemoglobin 11.4, hematocrit 37.6, platelets 425. PT 10.8, INR 1, APTT 28.4. Sodium 141, potassium 3.7, chloride 109, bicarbonate 27, BUN 21, creatinine 0.6, serum glucose 93, calcium 10, magnesium 2.2, total bilirubin 0.5, AST 17, ALT 14, alkaline phosphatase 95. Troponin I high sensitivity 6.2. IMAGING DATA: Chest x-ray, no acute abnormalities, in particular no evidence of pneumonia. EKG: Sinus bradycardia with first-degree AV block at a rate of 57, nonspecific T-wave abnormalities. ASSESSMENT AND PLAN: This is an 87-year-old female who presents chest pain and dyspnea on exertion. 1. Chest tightness and dyspnea on exertion: As per the daughter, she has some wheezing, but currently no wheezing heard. Chest x-ray looks clear and the patient is worried that she might have developed asthma as her twin sister developed asthma a couple of years ago. We will rule out acute coronary syndrome with serial enzymes, echo, and keep her n.p.o. after midnight and consult cardiology in the a.m. Monitor in the tele floor. We will give neb treatments and see if that helps. 2. History of paroxysmal atrial fibrillation/flutter: On chronic Eliquis anticoagulation, amiodarone, and metoprolol succinate. Will monitor. 3. Hyperlipidemia: On statin. 4. Chronic venous insufficiency: On Lasix as needed. 5. Hypothyroidism: On Synthroid. 6. Hypertension: On amlodipine and metoprolol succinate. Will monitor the blood pressure. 7. Anemia. Hb 11.7. will follow Hemoccult. 7. Deep venous thrombosis prophylaxis: On Eliquis. DISPOSITION: Closely monitor in the med tele. PT/OT prior to discharge. Social service to help with discharge planning. Level 1 full code as per my discussion with the daughter if there is a chance of recovery. Job ID: [id number] [facility]
[2022-10-05] MEDS ORDERED: POLYETHYLENE (MIRALAX) 17 GM PACK PO PRN (00:44)
[2022-10-05] MEDS ORDERED: FUROSEMIDE 40 MG TAB PO PRN (00:44)
[2022-10-05] MEDS ORDERED: ACETAMINOPHEN 325 MG TAB PO PRN (00:44)
[2022-10-05] MEDS ORDERED: NITROGLYCERIN SL 0.4 MG/TAB TAB SL PRN (00:44)
[2022-10-05] MEDS: APIXABAN 5 MG TABLET PO SCH ×3 (01:23→20:15)
[2022-10-05] MEDS: METOPROLOL SUCC 50MG EXT REL TAB PO SCH ×3 (01:23→20:16)
[2022-10-05] MEDS: LEVOTHYROXINE SODIUM 88 MCG TABLET PO SCH (05:23)
[2022-10-05 07:00] LABS: Basophils # (auto) 0.04 K/uL (0-0.2); Basophils % (auto) 0.5 %; Eosinophils # (auto) 0.04 K/uL (0-0.50); Eosinophils % (auto) 0.5 %; Immature Granulocytes # (auto) 0.03 K/uL (0.01-0.20); Immature Granulocytes % (auto) 0.4 %; Lymphocytes # (auto) 1.98 K/uL (1.2-3.4); Lymphocytes % (auto) 26.2 %; Mean Corpuscular Hemoglobin 24.2 pg (25.0-34.0); Mean Corpuscular Hgb Conc 30.3 g/dL (32.0-36.0); Mean Corpuscular Volume 79.7 fL (80.0-100.0); Mean Platelet Volume 9.8 fL (9.4-12.4); Monocytes # (auto) 0.87 K/uL (0.11-0.59); Monocytes % (auto) 11.5 %; Neutrophils # (auto) 4.59 K/uL (1.40-6.50); Neutrophils % (auto) 60.9 %; Platelet Count 340 K/uL (130-400); RDW Coefficient of Variation 17.2 % (11.5-14.5); RDW Standard Deviation 50.3 fL (36.4-46.3); Red Blood Count 4.14 M/uL (4.20-5.40); White Blood Count 7.55 K/ul (4.8-10.8)
[2022-10-05 07:16] LABS: BUN Creatinine Ratio 29.2 (10-20); Calcium 9.3 mg/dl (8.5-10.1); Creatinine Clr Calc Pharmacy 67.3 ml/min; Est GFR (African American) 100.8 ml/min; Magnesium 2.1 mg/dl (1.7-2.4); Potassium 3.3 mmol/L (3.5-5.1)
[2022-10-05 07:23] LABS: Troponin I High Sensitivity 7.2 pg/ml (0-14)
[2022-10-05] MEDS: CALCIUM 600MG + VIT D 400 IU TAB PO SCH ×2 (08:15→20:15)
[2022-10-05] MEDS: CEROVITE ADV FORMULA TAB PO SCH (08:15)
[2022-10-05] MEDS: amLODIPine BESYLATE 5 MG TAB PO SCH (08:15)
[2022-10-05] MEDS: PANTOprazole 40 MG TAB PO SCH (08:15)
[2022-10-05] MEDS: ROSUVASTATIN CALCIUM 10 MG TAB PO SCH (08:15)
[2022-10-05] MEDS ORDERED: AMIODARONE 200 MG TAB PO SCH (09:00)
[2022-10-05] MEDS ORDERED: POTASSIUM CHLORIDE CRTAB 20 MEQ TABCR PO STA (09:20)
--- NOTE | 2022-10-05 09:22 | Hospitalist Progress Note ---
Date of Service October 05, 2022 Assessment & Plan (1) Prolonged QT interval: (2) Dyspnea on exertion: Plan: This is an 87-year-old female who presents chest pain and dyspnea on exertion. 1. Chest tightness and dyspnea on exertion: As per the daughter, she has some wheezing, but currently no wheezing heard. Chest x-ray looks clear and the patient is worried that she might have developed asthma as her twin sister developed asthma a couple of years ago. We will rule out acute coronary syndrome with serial enzymes, echo. Monitor in the tele floor. We will give neb treatments and see if that helps. Troponin x3 negative Echo obtained LV is normal in size. There is mild concentric LVH. LV wall motion is normal. EF 60 to 65%. Diastolic dysfunction, grade 2, consistent with elevated left atrial pressure. LA is moderately dilated. There is mild mitral regurg. There is trace tricuspid regurg. RV systolic pressure is elevated at 30 to 40 mmHg. Cardiology was consulted EKG concerning for prolonged QT interval Hold amiodarone with daily EKG Consider stress testing after QT shortens Replete electrolytes as needed Obtain ABG 2. History of paroxysmal atrial fibrillation/flutter: On chronic Eliquis anticoagulation, amiodarone, and metoprolol succinate. Hold amio, as above. 3. Hyperlipidemia: On statin. 4. Chronic venous insufficiency: On Lasix as needed. 5. Hypothyroidism: On Synthroid. 6. Hypertension: On amlodipine and metoprolol succinate. Will monitor the blood pressure. 7. Anemia. Hb 11.7. will follow Hemoccult. DVT prophylaxis: On Eliquis. DISPOSITION:med tele. PT/OT prior to discharge. Social service to help with discharge planning. CODE: full code as per discussion with the daughter if there is a chance of recovery. Admission and Anticipated Discharge Date Admission Date: October 04, 2022 Subjective Pt seen in follow up of dyspnea on exertion Currently laying in bed, in no acute distress She is trying to sleep, rest as she has been having issues with insomnia her whole adult life, per patient Reports today she did not have any episodes of shortness of breath Yesterday she had several onces, just when she woke up and was trying to put some clothes on Currently awake alert oriented, able to answer questions appropriately, denies any chest pain palpitations or shortness of breath. Denies any fevers chills cough, abdominal pain, nausea or vomiting. Discussed with cardiology, will hold amiodarone, continue to closely monitor on telemetry, QTc is prolonged. Review of Systems Review of Systems: All systems reviewed & are unremarkable except as noted in Subjective Physical Exam Physical Exam: GENERAL: elderly frail F, not in acute distress. HEENT: NC/AT. EOMI. Pupils equal, round and reactive to light. Oral mucosa moist. NECK: No JVD, no neck masses. CARDIOVASCULAR: S1 and S2 heard. Regular rate and rhythm. No murmur, no gallop. RESPIRATORY SYSTEM:No accessory muscle use. No wheezing, no crackles. ABDOMEN: Soft, bowel sounds present, nontender, no distention. NEURO: Alert and oriented. Speech is clear. No facial droop. Obeys simple commands. Moves extremities. EXTREMITIES: minimal lower extremity edema, no erythema seen. Results & Data Results & Data ([facility]) Vital Signs (Past 12 Hours) Vital Signs Temp Pulse Pulse Resp BP BP Pulse Ox 10/05/22 06:38 37 C 60 18 138/57 L 93 10/05/22 04:48 94 10/05/22 03:48 36.8 C 63 18 109/53 L 91 10/05/22 02:06 58 L 10/05/22 00:55 10/05/22 00:55 36.7 C 60 16 164/66 H 95 10/05/22 00:14 10/05/22 00:00 60 18 153/56 H 92 10/05/22 00:00 153/56 H 10/04/22 23:00 63 13 93 10/04/22 23:00 148/57 H 10/04/22 22:31 152/60 H 10/04/22 22:31 64 26 H 96 10/04/22 22:00 69 22 95 10/04/22 22:00 175/98 H 10/04/22 21:45 185/73 H 10/04/22 21:45 66 22 96 O2 Del Method 10/05/22 06:38 Room Air 10/05/22 04:48 Room Air 10/05/22 03:48 Room Air 10/05/22 02:06 10/05/22 00:55 Room Air 10/05/22 00:55 Room Air 10/05/22 00:14 Room Air 10/05/22 00:00 Room Air 10/05/22 00:00 10/04/22 23:00 Room Air 10/04/22 23:00 10/04/22 22:31 10/04/22 22:31 Room Air 10/04/22 22:00 Room Air 10/04/22 22:00 10/04/22 21:45 10/04/22 21:45 Room Air Laboratory Results 10/05/22 10/05/22 10/04/22 Range/Units 05:56 05:56 22:12 WBC 7.55 (4.8-10.8) K/ul RBC 4.14 L (4.20-5.40) M/uL Hgb 10.0 L (12.0-16.0) g/dl Hct 33.0 L (37.0-47.0) % MCV 79.7 L (80.0-100.0) fL MCH 24.2 L (25.0-34.0) pg MCHC 30.3 L (32.0-36.0) g/dL RDW Std Deviation 50.3 H (36.4-46.3) fL RDW Coeff of Tere 17.2 H (11.5-14.5) % Plt Count 340 (130-400) K/uL MPV 9.8 (9.4-12.4) fL Immature Gran % (Auto) 0.4 % Neut % (Auto) 60.9 % Lymph % (Auto) 26.2 % Clay % (Auto) 11.5 % Eos % (Auto) 0.5 % Baso % (Auto) 0.5 % Neut # (Auto) 4.59 (1.40-6.50) K/uL Lymph # (Auto) 1.98 (1.2-3.4) K/uL Clay # (Auto) 0.87 H (0.11-0.59) K/uL Eos # (Auto) 0.04 (0-0.50) K/uL Baso # (Auto) 0.04 (0-0.2) K/uL Immature Gran # (Auto) 0.03 (0.01-0.20) K/uL PT (9.0-12.0) Seconds INR (0.9-1.1) APTT (21.0-31.0) Seconds PTT Ratio Sodium 143 (136-145) mmol/L Potassium 3.3 L (3.5-5.1) mmol/L Chloride 111 H (98-107) mmol/L Carbon Dioxide 25 (21-32) mmol/L Anion Gap 7 (3-11) BUN 14 (6-23) mg/dl Creatinine 0.48 L (0.6-1.2) mg/dl Est Cr Clr Drug Dosing 67.3 Est GFR ( Amer) 100.8 ml/min Est GFR (Non-Af Amer) 87.0 ml/min BUN/Creatinine Ratio 29.2 H (10-20) Glucose 84 (70-99(Fasting)) mg/dl Calcium 9.3 (8.5-10.1) mg/dl Magnesium 2.1 (1.7-2.4) mg/dl Total Bilirubin (0.2-1.0) mg/dl AST (13-39) U/L ALT (7-52) U/L Alkaline Phosphatase (34-104) U/L Troponin I High Sens 7.2 (0-14) pg/ml Total Protein (6.0-8.3) gm/dl Albumin (3.4-5.0) gm/dl Globulin (2.5-4.0) gm/dl Albumin/Globulin Ratio (0.9-2) Urine Color Yellow Urine Appearance Clear (Clear) Urine pH 7.0 (4.5-7.5) Ur Specific [place] 1.007 (1.000-1.030) Urine Protein Negative (Negative) Urine Glucose (UA) Negative (Negative) Urine Ketones Trace H (Negative) Urine Blood Negative (Negative) Urine Nitrite Negative (Negative) Urine Bilirubin Negative (Negative) Urine Urobilinogen Negative (Negative) Ur Leukocyte Esterase Trace H (Negative) Urine WBC (Auto) 1-5 (0-5) /hpf Urine RBC (Auto) 0-4 (0-4) /hpf U Hyaline Cast (Auto) 0 (0-5) /lpf U Epithel Cells (Auto) 5-10 H (0-5) /lpf Urine Bacteria (Auto) Negative (Negative) SARS-CoV-2, RNA, NAAT (NEGATIVE) 10/04/22 10/04/22 10/04/22 Range/Units 21:28 18:19 18:19 WBC (4.8-10.8) K/ul RBC (4.20-5.40) M/uL Hgb (12.0-16.0) g/dl Hct (37.0-47.0) % MCV (80.0-100.0) fL MCH (25.0-34.0) pg MCHC (32.0-36.0) g/dL RDW Std Deviation (36.4-46.3) fL RDW Coeff of Tere (11.5-14.5) % Plt Count (130-400) K/uL MPV (9.4-12.4) fL Immature Gran % (Auto) % Neut % (Auto) % Lymph % (Auto) % Clay % (Auto) % Eos % (Auto) % Baso % (Auto) % Neut # (Auto) (1.40-6.50) K/uL Lymph # (Auto) (1.2-3.4) K/uL [place] # (Auto) (0.11-0.59) K/uL Eos # (Auto) (0-0.50) K/uL Baso # (Auto) (0-0.2) K/uL Immature Gran # (Auto) (0.01-0.20) K/uL PT 10.8 (9.0-12.0) Seconds INR 1.0 (0.9-1.1) APTT 28.4 (21.0-31.0) Seconds PTT Ratio 1.0 Sodium 141 (136-145) mmol/L Potassium 3.7 (3.5-5.1) mmol/L Chloride 109 H (98-107) mmol/L Carbon Dioxide 27 (21-32) mmol/L Anion Gap 5 (3-11) BUN 21 (6-23) mg/dl Creatinine 0.63 (0.6-1.2) mg/dl Est Cr Clr Drug Dosing Not Reportable Est GFR ( Amer) 92.2 ml/min Est GFR (Non-Af Amer) 79.5 ml/min BUN/Creatinine Ratio 33.3 H (10-20) Glucose 93 (70-99(Fasting)) mg/dl Calcium 10.0 (8.5-10.1) mg/dl Magnesium 2.2 (1.7-2.4) mg/dl Total Bilirubin 0.5 (0.2-1.0) mg/dl AST 17 (13-39) U/L ALT 14 (7-52) U/L Alkaline Phosphatase 95 (34-104) U/L Troponin I High Sens 6.2 (0-14) pg/ml Total Protein 7.1 (6.0-8.3) gm/dl Albumin 4.3 (3.4-5.0) gm/dl Globulin 2.8 (2.5-4.0) gm/dl Albumin/Globulin Ratio 1.5 (0.9-2) Urine Color Urine Appearance (Clear) Urine pH (4.5-7.5) Ur Specific [place] (1.000-1.030) Urine Protein (Negative) Urine Glucose (UA) (Negative) Urine Ketones (Negative) Urine Blood (Negative) Urine Nitrite (Negative) Urine Bilirubin (Negative) Urine Urobilinogen (Negative) Ur Leukocyte Esterase (Negative) Urine WBC (Auto) (0-5) /hpf Urine RBC (Auto) (0-4) /hpf U Hyaline Cast (Auto) (0-5) /lpf U Epithel Cells (Auto) (0-5) /lpf Urine Bacteria (Auto) (Negative) SARS-CoV-2, RNA, NAAT NEGATIVE (NEGATIVE) 10/04/22 Range/Units 18:19 WBC 8.12 (4.8-10.8) K/ul RBC 4.65 (4.20-5.40) M/uL Hgb 11.4 L (12.0-16.0) g/dl Hct 37.6 (37.0-47.0) % MCV 80.9 (80.0-100.0) fL MCH 24.5 L (25.0-34.0) pg MCHC 30.3 L (32.0-36.0) g/dL RDW Std Deviation 51.4 H (36.4-46.3) fL RDW Coeff of Tere 17.6 H (11.5-14.5) % Plt Count 425 H (130-400) K/uL MPV 10.4 (9.4-12.4) fL Immature Gran % (Auto) 0.2 % Neut % (Auto) 66.0 % Lymph % (Auto) 22.8 % Clay % (Auto) 9.5 % Eos % (Auto) 1.1 % Baso % (Auto) 0.4 % Neut # (Auto) 5.36 (1.40-6.50) K/uL Lymph # (Auto) 1.85 (1.2-3.4) K/uL Clay # (Auto) 0.77 H (0.11-0.59) K/uL Eos # (Auto) 0.09 (0-0.50) K/uL Baso # (Auto) 0.03 (0-0.2) K/uL Immature Gran # (Auto) 0.02 (0.01-0.20) K/uL PT (9.0-12.0) Seconds INR (0.9-1.1) APTT (21.0-31.0) Seconds PTT Ratio Sodium (136-145) mmol/L Potassium (3.5-5.1) mmol/L Chloride (98-107) mmol/L Carbon Dioxide (21-32) mmol/L Anion Gap (3-11) BUN (6-23) mg/dl Creatinine (0.6-1.2) mg/dl Est Cr Clr Drug Dosing Est GFR ( Amer) ml/min Est GFR (Non-Af Amer) ml/min BUN/Creatinine Ratio (10-20) Glucose (70-99(Fasting)) mg/dl Calcium (8.5-10.1) mg/dl Magnesium (1.7-2.4) mg/dl Total Bilirubin (0.2-1.0) mg/dl AST (13-39) U/L ALT (7-52) U/L Alkaline Phosphatase (34-104) U/L Troponin I High Sens (0-14) pg/ml Total Protein (6.0-8.3) gm/dl Albumin (3.4-5.0) gm/dl Globulin (2.5-4.0) gm/dl Albumin/Globulin Ratio (0.9-2) Urine Color Urine Appearance (Clear) Urine pH (4.5-7.5) Ur Specific [place] (1.000-1.030) Urine Protein (Negative) Urine Glucose (UA) (Negative) Urine Ketones (Negative) Urine Blood (Negative) Urine Nitrite (Negative) Urine Bilirubin (Negative) Urine Urobilinogen (Negative) Ur Leukocyte Esterase (Negative) Urine WBC (Auto) (0-5) /hpf Urine RBC (Auto) (0-4) /hpf U Hyaline Cast (Auto) (0-5) /lpf U Epithel Cells (Auto) (0-5) /lpf Urine Bacteria (Auto) (Negative) SARS-CoV-2, RNA, NAAT (NEGATIVE) Medications Administered Current Inpatient Medications Acetaminophen (Acetaminophen 325 Mg Tab) 650 mg PO Q4H PRN PRN Reason: Pain or Fever Stop: 11/04/22 00:43 Amlodipine Besylate (Amlodipine Besylate 5 Mg Tab) 5 mg PO DAILY JAREK Stop: 11/04/22 08:59 Last Admin: 10/05/22 08:15 Dose: 5 mg Apixaban (Apixaban 5 Mg Tablet) 5 mg PO BID JAREK Stop: 11/04/22 00:43 Last Admin: 10/05/22 08:15 Dose: 5 mg Calcium/Vitamin D (Calcium 600mg + Vit D 400 Iu Tab) 1 tab PO BID JAREK Stop: 11/04/22 08:59 Last Admin: 10/05/22 08:15 Dose: 1 tab Docusate Sodium (Docusate Sodium 100 Mg Cap) 200 mg PO DAILY JAREK Stop: 11/04/22 08:59 Furosemide (Furosemide 40 Mg Tab) 40 mg PO DAILY PRN PRN Reason: Fluid Retention Stop: 11/04/22 00:43 Levothyroxine Sodium (Levothyroxine Sodium 88 Mcg Tablet) 88 mcg PO DAILYBB JAREK Stop: 11/04/22 06:29 Last Admin: 10/05/22 05:23 Dose: 88 mcg Metoprolol Succinate (Metoprolol Succ 50mg Ext Rel Tab) 50 mg PO BID JAREK Stop: 11/04/22 00:43 Last Admin: 10/05/22 08:15 Dose: 50 mg Multivitamins/Minerals (Cerovite Adv Formula Tab) 1 tab PO DAILY JAREK Stop: 11/04/22 08:59 Last Admin: 10/05/22 08:15 Dose: 1 tab Nitroglycerin (Nitroglycerin Sl 0.4 Mg/Tab Tab) 0.4 mg SL UD PRN PRN Reason: Chest Pain Stop: 11/04/22 00:43 Pantoprazole Sodium (Pantoprazole 40 Mg Tab) 40 mg PO DAILY JAREK Stop: 11/04/22 08:59 Last Admin: 10/05/22 08:15 Dose: 40 mg Polyethylene Glycol (Polyethylene (Miralax) 17 Gm Pack) 17 gm PO DAILY PRN PRN Reason: Constipation Stop: 11/04/22 00:43 Potassium Chloride (Potassium Chloride Crtab 20 Meq Tabcr) 20 meq PO NOW STA Stop: 10/05/22 09:21 Rosuvastatin Calcium (Rosuvastatin Calcium 10 Mg Tab) 10 mg PO Q48H [facility] Stop: 11/04/22 08:59 Last Admin: 10/05/22 08:15 Dose: 10 mg
[2022-10-05] MEDS: DOCUSATE SODIUM 100 MG CAP PO SCH (10:09)
--- NOTE | 2022-10-05 13:58 | Cardiology Consultation ---
Date of Consultation October 05, 2022 Assessment & Plan (1) Dyspnea on exertion: (2) Diastolic dysfunction: (3) Prolonged QT interval: (4) PAF (paroxysmal atrial fibrillation): (5) On amiodarone therapy: Plan 87-year-old female with hypertension, diastolic dysfunction and paroxysmal atrial fibrillation presents with complaints of exertional dyspnea not yet well- defined Echocardiogram demonstrates preserved LV systolic function Chest x-ray without infiltrate or edema EKG concerning for prolonged QT interval though in part due to procedural measurement Plan: Hold amiodarone with daily EKG Consider possible stress testing after QT shortens ABG with possible pulmonary screening depending on results Resume oral diuretic as ordered on a daily basis Supplement potassium History of Present Illness Reason for Consultation: Exertional dyspnea, fatigue Requesting Physician: Dr Rae Attending Physician: Dev Rae MD History of Present Illness Patient is an 87-year-old female with ongoing issues which include 1. Paroxysmal A-fib flutter maintaining sinus rhythm with amiodarone, chronically anticoagulated with Eliquis 2. Diastolic left ventricular dysfunction with left atrial enlargement 3. Hypertension Patient presents this admission due to complaints of generalized fatigue as well as exertional dyspnea. Feels symptoms have been more pronounced over the past several weeks. Concerned that she may be developing asthma as twin sister has asthma. Denies any anginal complaints. Notes no dizziness or lightheadedness syncope or near syncope no sense of tachypalpitations No fevers chills unexplained infections. Underwent routine sigmoidoscopy without difficulty earlier last week. No overt bleeding complaints Chronic nocturnal sleep disruption but no other acute issues No oxygen demands Has been using diuretic as an outpatient only on a as needed basis This morning comfortable without complaint but sitting quietly in bed. EKG with prolonged QT interval no ischemic changes no arrhythmias on telemetry Allergies Allergy/AdvReac Type Severity Reaction Status Date / Time Sulfa (Sulfonamide Allergy Intermediate Hives Verified 10/04/22 20:38 Antibiotics) sulfamethoxazole Allergy Intermediate Hives Verified 10/04/22 20:38 trimethoprim Allergy Intermediate Hives Verified 10/04/22 20:38 epinephrine Allergy Unknown ON [facility] MED Verified 10/04/22 20:38 LIST Home Medications Medication Instructions Recorded Confirmed Type calcium carbonate 500 mg-vitamin 1 tab PO BID 09/26/18 10/04/22 History D3 5 mcg (200 unit) tablet (Os-Ethan 500 + D3) furosemide 40 mg tablet (Lasix) 40 mg PO DAILY PRN Fluid Retention 09/26/18 10/04/22 History rosuvastatin 10 mg tablet (Crestor) 10 mg PO Q2D 09/26/18 10/04/22 History apixaban 5 mg tablet (Eliquis) 5 mg PO BID #60 tabs 10/31/18 10/04/22 Rx metoprolol succinate 50 mg 50 mg PO BID #60 tabs 10/31/18 10/04/22 Rx tablet,extended release 24 hr docusate sodium 100 mg capsule 200 mg PO DAILY 12/09/18 10/04/22 History (Colace) omeprazole 20 mg capsule,delayed 20 mg PO DAILY 12/09/18 10/04/22 History release amiodarone 200 mg tablet 200 mg PO DAILY 02/23/20 10/04/22 History acetaminophen 500 mg tablet 1,000 mg PO Q6H PRN PAIN/FEVER 10/04/22 10/04/22 History (Tylenol Extra Strength) amlodipine 5 mg tablet 5 mg PO DAILY 10/04/22 10/04/22 History levothyroxine 88 mcg tablet 88 mcg PO DAILYBB 10/04/22 10/04/22 History vit C 250 mg-vit E 90 mg-zinc 40 1 tab PO BID 10/04/22 10/04/22 History mg-copper 1 [id number] capsule (PreserVision AREDS-2) Patient History Medical History (Updated 10/05/22 @ 14:07 by Mayur Castillo MD) GERD (gastroesophageal reflux disease) History of PSVT (paroxysmal supraventricular tachycardia) HLD (hyperlipidemia) Macular degeneration Osteoporosis PAF (paroxysmal atrial fibrillation) Surgical History History of appendectomy History of History of cataract extraction History of cholecystectomy History of lumbar laminectomy History of total hysterectomy with bilateral salpingo-oophorectomy (BSO) Family History Father , age 65 Myocardial infarction Mother Coronary heart disease CHF (congestive heart failure) Sister Atrial fibrillation Social History Smoking Status: Never smoker Tobacco Type: Cigarettes Cigarettes Per Day: 10; Hx Alcohol Use: No Hx Substance Use: No Preferred Language: [place] Communication Ability: Effective Hearing Ability: Use of Hearing Aid Plating Inspector Required: No Beliefs That Will Affect Care: None marital status: / Current Living Situation: Alone current occupational status: retired Other Information That Helps Us Care for You: No other: walks with cane, still drives Feels Safe at Home: Yes Safety Concerns: Feels Safe At This Time Assistive Devices: Glasses Results & Data ([facility]) Vital Signs (Past 12 Hours) Vital Signs Temp Pulse Pulse Resp BP Pulse Ox O2 Del Method 10/05/22 13:30 Room Air 10/05/22 06:38 37 C 60 18 138/57 L 93 Room Air 10/05/22 04:48 94 Room Air 10/05/22 03:48 36.8 C 63 18 109/53 L 91 Room Air 10/05/22 02:06 58 L Laboratory Results Laboratory Results - last 24 hr 10/04/22 10/04/22 10/04/22 18:19 18:19 18:19 WBC 8.12 RBC 4.65 Hgb 11.4 L Hct 37.6 MCV 80.9 MCH 24.5 L MCHC 30.3 L RDW Std Deviation 51.4 H RDW Coeff of Tere 17.6 H Plt Count 425 H MPV 10.4 Immature Gran % (Auto) 0.2 Neut % (Auto) 66.0 Lymph % (Auto) 22.8 [place] % (Auto) 9.5 Eos % (Auto) 1.1 Baso % (Auto) 0.4 Neut # (Auto) 5.36 Lymph # (Auto) 1.85 [place] # (Auto) 0.77 H Eos # (Auto) 0.09 Baso # (Auto) 0.03 Immature Gran # (Auto) 0.02 PT 10.8 INR 1.0 APTT 28.4 PTT Ratio 1.0 Sodium 141 Potassium 3.7 Chloride 109 H Carbon Dioxide 27 Anion Gap 5 BUN 21 Creatinine 0.63 Est Cr Clr Drug Dosing Not Reportable Est GFR ( Amer) 92.2 Est GFR (Non-Af Amer) 79.5 BUN/Creatinine Ratio 33.3 H Glucose 93 Calcium 10.0 Magnesium 2.2 Total Bilirubin 0.5 AST 17 ALT 14 Alkaline Phosphatase 95 Troponin I High Sens 6.2 Total Protein 7.1 Albumin 4.3 Globulin 2.8 Albumin/Globulin Ratio 1.5 Urine Color Urine Appearance Urine pH Ur Specific [place] Urine Protein Urine Glucose (UA) Urine Ketones Urine Blood Urine Nitrite Urine Bilirubin Urine Urobilinogen Ur Leukocyte Esterase Urine WBC (Auto) Urine RBC (Auto) U Hyaline Cast (Auto) U Epithel Cells (Auto) Urine Bacteria (Auto) SARS-CoV-2, RNA, NAAT 10/04/22 10/04/22 10/05/22 21:28 22:12 05:56 WBC 7.55 RBC 4.14 L Hgb 10.0 L Hct 33.0 L MCV 79.7 L MCH 24.2 L MCHC 30.3 L RDW Std Deviation 50.3 H RDW Coeff of Tere 17.2 H Plt Count 340 MPV 9.8 Immature Gran % (Auto) 0.4 Neut % (Auto) 60.9 Lymph % (Auto) 26.2 [place] % (Auto) 11.5 Eos % (Auto) 0.5 Baso % (Auto) 0.5 Neut # (Auto) 4.59 Lymph # (Auto) 1.98 [place] # (Auto) 0.87 H Eos # (Auto) 0.04 Baso # (Auto) 0.04 Immature Gran # (Auto) 0.03 PT INR APTT PTT Ratio Sodium Potassium Chloride Carbon Dioxide Anion Gap BUN Creatinine Est Cr Clr Drug Dosing Est GFR ( Amer) Est GFR (Non-Af Amer) BUN/Creatinine Ratio Glucose Calcium Magnesium Total Bilirubin AST ALT Alkaline Phosphatase Troponin I High Sens Total Protein Albumin Globulin Albumin/Globulin Ratio Urine Color Yellow Urine Appearance Clear Urine pH 7.0 Ur Specific [place] 1.007 Urine Protein Negative Urine Glucose (UA) Negative Urine Ketones Trace H Urine Blood Negative Urine Nitrite Negative Urine Bilirubin Negative Urine Urobilinogen Negative Ur Leukocyte Esterase Trace H Urine WBC (Auto) 1-5 Urine RBC (Auto) 0-4 U Hyaline Cast (Auto) 0 U Epithel Cells (Auto) 5-10 H Urine Bacteria (Auto) Negative SARS-CoV-2, RNA, NAAT NEGATIVE 10/05/22 10/05/22 05:56 11:32 WBC RBC Hgb Hct MCV MCH MCHC RDW Std Deviation RDW Coeff of Tere Plt Count MPV Immature Gran % (Auto) Neut % (Auto) Lymph % (Auto) [place] % (Auto) Eos % (Auto) Baso % (Auto) Neut # (Auto) Lymph # (Auto) [place] # (Auto) Eos # (Auto) Baso # (Auto) Immature Gran # (Auto) PT INR APTT PTT Ratio Sodium 143 Potassium 3.3 L Chloride 111 H Carbon Dioxide 25 Anion Gap 7 BUN 14 Creatinine 0.48 L Est Cr Clr Drug Dosing 67.3 Est GFR ( Amer) 100.8 Est GFR (Non-Af Amer) 87.0 BUN/Creatinine Ratio 29.2 H Glucose 84 Calcium 9.3 Magnesium 2.1 Total Bilirubin AST ALT Alkaline Phosphatase Troponin I High Sens 7.2 7.0 Total Protein Albumin Globulin Albumin/Globulin Ratio Urine Color Urine Appearance Urine pH Ur Specific [place] Urine Protein Urine Glucose (UA) Urine Ketones Urine Blood Urine Nitrite Urine Bilirubin Urine Urobilinogen Ur Leukocyte Esterase Urine WBC (Auto) Urine RBC (Auto) U Hyaline Cast (Auto) U Epithel Cells (Auto) Urine Bacteria (Auto) SARS-CoV-2, RNA, NAAT
--- NOTE | 2022-10-05 22:04 | Electrocardiogram Report ---
Test Reason : Blood Pressure : / mmHG Vent. Rate : 057 BPM Atrial Rate : 057 BPM P-R Int : 212 ms QRS Dur : 084 ms QT Int : 478 ms P-R-T Axes : 080 003 047 degrees QTc Int : 465 ms Poor data quality, interpretation may be adversely affected Sinus bradycardia with 1st degree A-V block Nonspecific T wave abnormality Abnormal ECG When compared with ECG of 03-MAY-2020 21:54, Nonspecific T wave abnormality, improved in Inferior leads QT has lengthened Confirmed by Sean Hager ([id number]) on 10/05/2022 10:04:07 PM Referred By: REFERRED SELF Confirmed By:Jarett Hager
--- NOTE | 2022-10-05 22:44 | Electrocardiogram Report ---
Test Reason : Blood Pressure : / mmHG Vent. Rate : 063 BPM Atrial Rate : 063 BPM P-R Int : 208 ms QRS Dur : 084 ms QT Int : 424 ms P-R-T Axes : 031 046 029 degrees QTc Int : 434 ms Poor data quality, interpretation may be adversely affected Normal sinus rhythm with 1st degree A-V block Nonspecific T wave abnormality Abnormal ECG When compared with ECG of 04-OCT-2022 17:54, (unconfirmed) No significant change Confirmed by Sean Hager ([id number]) on 10/05/2022 10:43:59 PM Referred By: REFERRED SELF Confirmed By:Jarett Hager
[2022-10-06] MEDS: LEVOTHYROXINE SODIUM 88 MCG TABLET PO SCH (05:13)
[2022-10-06 07:00] LABS: Base Excess ABG 1.2 mEq/L (-9-1.8); HCO3 ABG 25 mmol/L (19-24); Oxygen Saturation ABG 94.3 % (90-95); PCO2 ABG 35 mmHg (35-46); PO2 ABG 69 mmHg (80-95); pH ABG 7.46 (7.35-7.45)
[2022-10-06 07:05] LABS: Hematocrit (blood only) 33.2 % (37.0-47.0); Mean Corpuscular Hemoglobin 24.2 pg (25.0-34.0); Mean Corpuscular Hgb Conc 30.1 g/dL (32.0-36.0); Mean Corpuscular Volume 80.4 fL (80.0-100.0); Mean Platelet Volume 9.3 fL (9.4-12.4); Platelet Count 313 K/uL (130-400); RDW Coefficient of Variation 17.2 % (11.5-14.5); RDW Standard Deviation 50.4 fL (36.4-46.3); Red Blood Count 4.13 M/uL (4.20-5.40); White Blood Count 8.42 K/ul (4.8-10.8)
[2022-10-06 07:06] LABS: Allen Test Pos (Pos)
[2022-10-06 07:30] LABS: BUN Creatinine Ratio 28.3 (10-20); Calcium 9.4 mg/dl (8.5-10.1); Est GFR (African American) 97.6 ml/min; Est GFR (Non-African American) 84.2 ml/min; Magnesium 2.1 mg/dl (1.7-2.4); Phosphorus 2.4 mg/dl (2.5-4.9); Potassium 3.7 mmol/L (3.5-5.1)
--- NOTE | 2022-10-06 08:17 | Hospitalist Progress Note ---
Date of Service October 06, 2022 Assessment & Plan (1) Prolonged QT interval: (2) Dyspnea on exertion: Plan: This is an 87-year-old female who presents chest pain and dyspnea on exertion. 1. Chest tightness and dyspnea on exertion: As per the daughter, she has some wheezing, but currently no wheezing heard. Chest x-ray looks clear and the patient is worried that she might have developed asthma as her twin sister developed asthma a couple of years ago. We will rule out acute coronary syndrome with serial enzymes, echo. Monitor in the tele floor. We will give neb treatments and see if that helps. Troponin x3 negative Echo obtained LV is normal in size. There is mild concentric LVH. LV wall motion is normal. EF 60 to 65%. Diastolic dysfunction, grade 2, consistent with elevated left atrial pressure. LA is moderately dilated. There is mild mitral regurg. There is trace tricuspid regurg. RV systolic pressure is elevated at 30 to 40 mmHg. Cardiology was consulted EKG concerning for prolonged QT interval Hold amiodarone with daily EKG Consider stress testing after QT shortens Replete electrolytes as needed Obtain ABG 2. History of paroxysmal atrial fibrillation/flutter: On chronic Eliquis anticoagulation, amiodarone, and metoprolol succinate. Hold amio, as above. 3. Questionable GI bleed Last evening notified by RN that the patient had bright red blood per rectum FOBT today is positive Patient has recent history of sigmoidoscopy, discussed with GI H&H stable from yesterday Per GI, not likely bleed and okay to resume diet Pt had now soft brown stool Cont. to monitor 4. Hyperlipidemia: On statin. 5. Chronic venous insufficiency: On Lasix as needed. 6. Hypothyroidism: On Synthroid. 7. Hypertension: On amlodipine and metoprolol succinate. Will monitor the blood pressure. 8. Anemia. Hb 11.7 on admission. Hemoccult positive, discussed w/ GI as above. DVT prophylaxis: On Eliquis. DISPOSITION:med tele. PT/OT prior to discharge. CODE: full code Admission and Anticipated Discharge Date Admission Date: October 05, 2022 Subjective Pt seen in follow up of dyspnea on exertion Last evening notified by RN that the patient had bright red blood per rectum FOBT today is positive Patient has recent history of sigmoidoscopy, discussed with GI H&H stable from yesterday Per GI, not likely bleed and okay to resume diet Pt is currently laying in bed, in no acute distress Reports she slept fairly well yesterday. Denies any chest pain palpitations or shortness of breath. Says she was little bit short of breath when she went to the bathroom today, but it was minimal and much less significant than at home. She also has not been doing much here in the hospital. Currently awake alert oriented, able to answer questions appropriately. Denies any fevers chills cough, abdominal pain, nausea or vomiting. Discussed with cardiology yesterday, amiodarone on hold, continue to closely monitor on telemetry, as QTc prolonged. Review of Systems Review of Systems: All systems reviewed & are unremarkable except as noted in Subjective Physical Exam Physical Exam: GENERAL: elderly frail F, not in acute distress. HEENT: NC/AT. EOMI. Pupils equal, round and reactive to light. Oral mucosa moist. NECK: No JVD, no neck masses. CARDIOVASCULAR: S1 and S2 heard. Regular rate and rhythm. No murmur, no gallop. RESPIRATORY:No accessory muscle use. No wheezing, no crackles. ABDOMEN: Soft, bowel sounds present, nontender, no distention. NEURO: Alert and oriented. Speech is clear. No facial droop. Obeys simple commands. Moves extremities. EXTREMITIES: minimal lower extremity edema, no erythema seen. Results & Data Results & Data ([facility]) Vital Signs (Past 12 Hours) Vital Signs Temp Pulse Pulse Resp BP Pulse Ox O2 Del Method 10/06/22 07:52 37.0 C 60 18 161/75 H 92 Room Air 10/06/22 03:36 37.1 C 61 18 159/69 H 93 Room Air 10/05/22 22:06 62 10/05/22 22:39 37.4 C 63 18 150/68 H 92 Room Air Laboratory Results 10/06/22 10/06/22 10/06/22 Range/Units 07:39 06:51 06:51 WBC 8.42 (4.8-10.8) K/ul RBC 4.13 L (4.20-5.40) M/uL Hgb 10.0 L (12.0-16.0) g/dl Hct 33.2 L (37.0-47.0) % MCV 80.4 (80.0-100.0) fL MCH 24.2 L (25.0-34.0) pg MCHC 30.1 L (32.0-36.0) g/dL RDW Std Deviation 50.4 H (36.4-46.3) fL RDW Coeff of Tere 17.2 H (11.5-14.5) % Plt Count 313 (130-400) K/uL MPV 9.3 L (9.4-12.4) fL ABG pH (7.35-7.45) ABG pCO2 (35-46) mmHg ABG pO2 (80-95) mmHg ABG HCO3 (19-24) mmol/L ABG O2 Saturation (90-95) % ABG Base Excess (-9-1.8) mEq/L Umair Test (Pos) Oxygen Given Sodium 139 (136-145) mmol/L Potassium 3.7 (3.5-5.1) mmol/L Chloride 109 H (98-107) mmol/L Carbon Dioxide 25 (21-32) mmol/L Anion Gap 5 (3-11) BUN 15 (6-23) mg/dl Creatinine 0.53 L (0.6-1.2) mg/dl Est Cr Clr Drug Dosing 62.0 ml/min Est GFR ( Amer) 97.6 ml/min Est GFR (Non-Af Amer) 84.2 ml/min BUN/Creatinine Ratio 28.3 H (10-20) Glucose 83 (70-99(Fasting)) mg/dl POC Glucose 84 (70-99) mg/dl Calcium 9.4 (8.5-10.1) mg/dl Phosphorus 2.4 L (2.5-4.9) mg/dl Magnesium 2.1 (1.7-2.4) mg/dl Troponin I High Sens (0-14) pg/ml 10/06/22 10/05/22 10/05/22 Range/Units 06:51 16:38 11:32 WBC (4.8-10.8) K/ul RBC (4.20-5.40) M/uL Hgb (12.0-16.0) g/dl Hct (37.0-47.0) % MCV (80.0-100.0) fL MCH (25.0-34.0) pg MCHC (32.0-36.0) g/dL RDW Std Deviation (36.4-46.3) fL RDW Coeff of Tere (11.5-14.5) % Plt Count (130-400) K/uL MPV (9.4-12.4) fL ABG pH 7.46 H (7.35-7.45) ABG pCO2 35 (35-46) mmHg ABG pO2 69 L (80-95) mmHg ABG HCO3 25 H (19-24) mmol/L ABG O2 Saturation 94.3 (90-95) % ABG Base Excess 1.2 (-9-1.8) mEq/L Umair Test Pos (Pos) Oxygen Given RA Sodium (136-145) mmol/L Potassium (3.5-5.1) mmol/L Chloride (98-107) mmol/L Carbon Dioxide (21-32) mmol/L Anion Gap (3-11) BUN (6-23) mg/dl Creatinine (0.6-1.2) mg/dl Est Cr Clr Drug Dosing ml/min Est GFR ( Amer) ml/min Est GFR (Non-Af Amer) ml/min BUN/Creatinine Ratio (10-20) Glucose (70-99(Fasting)) mg/dl POC Glucose (70-99) mg/dl Calcium (8.5-10.1) mg/dl Phosphorus (2.5-4.9) mg/dl Magnesium (1.7-2.4) mg/dl Troponin I High Sens 6.9 7.0 (0-14) pg/ml Medications Administered Current Inpatient Medications Acetaminophen (Acetaminophen 325 Mg Tab) 650 mg PO Q4H PRN PRN Reason: Pain or Fever Stop: 11/04/22 00:43 Amlodipine Besylate (Amlodipine Besylate 5 Mg Tab) 5 mg PO DAILY JAREK Stop: 11/04/22 08:59 Last Admin: 10/05/22 08:15 Dose: 5 mg Apixaban (Apixaban 5 Mg Tablet) 5 mg PO BID JAREK Stop: 11/04/22 00:43 Last Admin: 10/05/22 20:15 Dose: 5 mg Calcium/Vitamin D (Calcium 600mg + Vit D 400 Iu Tab) 1 tab PO BID JAREK Stop: 11/04/22 08:59 Last Admin: 10/05/22 20:15 Dose: 1 tab Docusate Sodium (Docusate Sodium 100 Mg Cap) 200 mg PO DAILY JAREK Stop: 11/04/22 08:59 Last Admin: 10/05/22 10:09 Dose: Not Given Furosemide (Furosemide 40 Mg Tab) 40 mg PO DAILY PRN PRN Reason: Fluid Retention Stop: 11/04/22 00:43 Levothyroxine Sodium (Levothyroxine Sodium 88 Mcg Tablet) 88 mcg PO DAILYBB JAREK Stop: 11/04/22 06:29 Last Admin: 10/06/22 05:13 Dose: 88 mcg Metoprolol Succinate (Metoprolol Succ 50mg Ext Rel Tab) 50 mg PO BID JAREK Stop: 11/04/22 00:43 Last Admin: 10/05/22 20:16 Dose: 50 mg Multivitamins/Minerals (Cerovite Adv Formula Tab) 1 tab PO DAILY JAREK Stop: 11/04/22 08:59 Last Admin: 10/05/22 08:15 Dose: 1 tab Nitroglycerin (Nitroglycerin Sl 0.4 Mg/Tab Tab) 0.4 mg SL UD PRN PRN Reason: Chest Pain Stop: 11/04/22 00:43 Pantoprazole Sodium (Pantoprazole 40 Mg Tab) 40 mg PO DAILY JAREK Stop: 11/04/22 08:59 Last Admin: 10/05/22 08:15 Dose: 40 mg Polyethylene Glycol (Polyethylene (Miralax) 17 Gm Pack) 17 gm PO DAILY PRN PRN Reason: Constipation Stop: 11/04/22 00:43 Rosuvastatin Calcium (Rosuvastatin Calcium 10 Mg Tab) 10 mg PO Q48H JAREK Stop: 11/04/22 08:59 Last Admin: 10/05/22 08:15 Dose: 10 mg
--- NOTE | 2022-10-06 09:23 | Gastrointestinal Consultation ---
Date of Consultation October 06, 2022 Assessment & Plan (1) Acute GI bleeding: I do not think she is having gi bleeding. When doing a prep for colonoscopy we do not allow the patients to eat red jello or red gatorade as it looks like blood in the colon. She just recently had a sigmoidoscopy so we know all is good in her lower GI tract. I do not plan to evaluate this and I would not worry about it. From my standpoint she can eat. History of Present Illness Reason for Consultation: rectal bleeding Attending Physician: Dev Rae MD History of Present Illness 87 year old female admitted with episodic shortness of breath who had a bowel movement yesterday and the water was "pinkish orange". She had a sigmoidoscopy this past Saturday for follow up of a polyp after she was unable to undergo full colon prep. It was normal. She has no GI symptoms although she has had a couple of loose stools while in the hospital. She is very upset now, wants to eat and wishes she would have flushed the toilet. She realized that one of the first things she was able to eat was red jello. She has mentioned signing herself out and that upsets her as well Allergies Allergy/AdvReac Type Severity Reaction Status Date / Time Sulfa (Sulfonamide Allergy Intermediate Hives Verified 10/04/22 20:38 Antibiotics) sulfamethoxazole Allergy Intermediate Hives Verified 10/04/22 20:38 trimethoprim Allergy Intermediate Hives Verified 10/04/22 20:38 epinephrine Allergy Unknown ON [facility] MED Verified 10/04/22 20:38 LIST Home Medications Medication Instructions Recorded Confirmed Type calcium carbonate 500 mg-vitamin 1 tab PO BID 09/26/18 10/04/22 History D3 5 mcg (200 unit) tablet (Os-Ethan 500 + D3) furosemide 40 mg tablet (Lasix) 40 mg PO DAILY PRN Fluid Retention 09/26/18 0 10/04/22 History rosuvastatin 10 mg tablet (Crestor) 10 mg PO Q2D 09/26/18 10/04/22 History apixaban 5 mg tablet (Eliquis) 5 mg PO BID #60 tabs 10/31/18 10/04/22 Rx metoprolol succinate 50 mg 50 mg PO BID #60 tabs 10/31/18 10/04/22 Rx tablet,extended release 24 hr docusate sodium 100 mg capsule 200 mg PO DAILY 12/09/18 10/04/22 History (Colace) omeprazole 20 mg capsule,delayed 20 mg PO DAILY 12/09/18 10/04/22 History release amiodarone 200 mg tablet 200 mg PO DAILY 02/23/20 10/04/22 History acetaminophen 500 mg tablet 1,000 mg PO Q6H PRN PAIN/FEVER 10/04/22 10/04/22 History (Tylenol Extra Strength) amlodipine 5 mg tablet 5 mg PO DAILY 10/04/22 10/04/22 History levothyroxine 88 mcg tablet 88 mcg PO DAILYBB 10/04/22 10/04/22 History vit C 250 mg-vit E 90 mg-zinc 40 1 tab PO BID 10/04/22 10/04/22 History mg-copper 1 up-aukgij-gclgon capsule (PreserVision AREDS-2) Patient History Medical History GERD (gastroesophageal reflux disease) History of PSVT (paroxysmal supraventricular tachycardia) HLD (hyperlipidemia) Macular degeneration Osteoporosis PAF (paroxysmal atrial fibrillation) Surgical History History of appendectomy History of History of cataract extraction History of cholecystectomy History of lumbar laminectomy History of total hysterectomy with bilateral salpingo-oophorectomy (BSO) Family History Father , age 65 Myocardial infarction Mother Coronary heart disease CHF (congestive heart failure) Sister Atrial fibrillation Social History Smoking Status: Never smoker Tobacco Type: Cigarettes Cigarettes Per Day: 10; Hx Alcohol Use: No Hx Substance Use: No Preferred Language: Irish Communication Ability: Effective Hearing Ability: Use of Hearing Aid Window Draper Required: No Beliefs That Will Affect Care: None marital status: / Current Living Situation: Alone current occupational status: retired Other Information That Helps Us Care for You: No other: walks with cane, still drives Feels Safe at Home: Yes Safety Concerns: Feels Safe At This Time Assistive Devices: Cane, Glasses, Walker and Wheelchair Review of Systems Review of Systems: All systems reviewed & are unremarkable except as noted in HPI & below Physical Exam Constitutional: WD/WN, vitals as above no acute distress Eyes: PERRL, conjunctivae normal, anicteric sclerae ENMT: external ear and nose normal, oropharynx normal Neck: trachea midline, no thyromegaly Respiratory: normal respiratory effort, lungs clear to auscultation Cardiovascular: RRR, no murmur, no edema Gastrointestinal (Abdomen): normal bowel sounds, soft, nontender, no hepatosplenomegaly Musculoskeletal: Extremities: no cyanosis and no clubbing Skin: no rashes, warm and dry Neurologic: PERRL, EOMI, accommodation nl, no face palsy, no dysarthria Psychiatric: Orientation: alert and oriented x 3 Results & Data ([facility]) Vital Signs (Past 12 Hours) Vital Signs Temp Pulse Pulse Resp BP Pulse Ox O2 Del Method 10/06/22 07:52 37.0 C 60 18 161/75 H 92 Room Air 10/06/22 03:36 37.1 C 61 18 159/69 H 93 Room Air 10/05/22 22:06 62 10/05/22 22:39 37.4 C 63 18 150/68 H 92 Room Air Laboratory Results 10/06/22 10/06/22 10/06/22 Range/Units 07:39 06:51 06:51 WBC 8.42 (4.8-10.8) K/ul RBC 4.13 L (4.20-5.40) M/uL Hgb 10.0 L (12.0-16.0) g/dl Hct 33.2 L (37.0-47.0) % MCV 80.4 (80.0-100.0) fL MCH 24.2 L (25.0-34.0) pg MCHC 30.1 L (32.0-36.0) g/dL RDW Std Deviation 50.4 H (36.4-46.3) fL RDW Coeff of Tere 17.2 H (11.5-14.5) % Plt Count 313 (130-400) K/uL MPV 9.3 L (9.4-12.4) fL ABG pH (7.35-7.45) ABG pCO2 (35-46) mmHg ABG pO2 (80-95) mmHg ABG HCO3 (19-24) mmol/L ABG O2 Saturation (90-95) % ABG Base Excess (-9-1.8) mEq/L Umair Test (Pos) Oxygen Given Sodium 139 (136-145) mmol/L Potassium 3.7 (3.5-5.1) mmol/L Chloride 109 H (98-107) mmol/L Carbon Dioxide 25 (21-32) mmol/L Anion Gap 5 (3-11) BUN 15 (6-23) mg/dl Creatinine 0.53 L (0.6-1.2) mg/dl Est Cr Clr Drug Dosing 62.0 ml/min Est GFR ( Amer) 97.6 ml/min Est GFR (Non-Af Amer) 84.2 ml/min BUN/Creatinine Ratio 28.3 H (10-20) Glucose 83 (70-99(Fasting)) mg/dl POC Glucose 84 (70-99) mg/dl Calcium 9.4 (8.5-10.1) mg/dl Phosphorus 2.4 L (2.5-4.9) mg/dl Magnesium 2.1 (1.7-2.4) mg/dl Troponin I High Sens (0-14) pg/ml 10/06/22 10/05/22 10/05/22 Range/Units 06:51 16:38 11:32 WBC (4.8-10.8) K/ul RBC (4.20-5.40) M/uL Hgb (12.0-16.0) g/dl Hct (37.0-47.0) % MCV (80.0-100.0) fL MCH (25.0-34.0) pg MCHC (32.0-36.0) g/dL RDW Std Deviation (36.4-46.3) fL RDW Coeff of Tere (11.5-14.5) % Plt Count (130-400) K/uL MPV (9.4-12.4) fL ABG pH 7.46 H (7.35-7.45) ABG pCO2 35 (35-46) mmHg ABG pO2 69 L (80-95) mmHg ABG HCO3 25 H (19-24) mmol/L ABG O2 Saturation 94.3 (90-95) % ABG Base Excess 1.2 (-9-1.8) mEq/L Umair Test Pos (Pos) Oxygen Given RA Sodium (136-145) mmol/L Potassium (3.5-5.1) mmol/L Chloride (98-107) mmol/L Carbon Dioxide (21-32) mmol/L Anion Gap (3-11) BUN (6-23) mg/dl Creatinine (0.6-1.2) mg/dl Est Cr Clr Drug Dosing ml/min Est GFR ( Amer) ml/min Est GFR (Non-Af Amer) ml/min BUN/Creatinine Ratio (10-20) Glucose (70-99(Fasting)) mg/dl POC Glucose (70-99) mg/dl Calcium (8.5-10.1) mg/dl Phosphorus (2.5-4.9) mg/dl Magnesium (1.7-2.4) mg/dl Troponin I High Sens 6.9 7.0 (0-14) pg/ml Diagnostic Findings Chest X-Ray 10/04/22 17:07 XR chest 1V portable CLINICAL HISTORY: Dyspnea TECHNIQUE: Single frontal radiograph of the chest was obtained. Comparison: Comparison is made to chest and abdomen radiographs 03/31/2022 FINDINGS: No lines and tubes are seen. Cardiomegaly is noted. The lungs are clear. No evidence of pleural effusion or pneumothorax. IMPRESSION: No acute abnormalities and in particular no evidence of pneumonia. ACT 112: Negative or not required by law. Electronically signed by: Otilio Hummel M.D. 10/04/2022 5:20 PM
[2022-10-06] MEDS: PANTOprazole 40 MG TAB PO SCH (09:49)
[2022-10-06] MEDS: DOCUSATE SODIUM 100 MG CAP PO SCH (09:49)
[2022-10-06] MEDS: CEROVITE ADV FORMULA TAB PO SCH (09:49)
[2022-10-06] MEDS: CALCIUM 600MG + VIT D 400 IU TAB PO SCH ×2 (09:50→20:12)
[2022-10-06] MEDS: APIXABAN 5 MG TABLET PO SCH ×2 (09:50→20:12)
[2022-10-06] MEDS: METOPROLOL SUCC 50MG EXT REL TAB PO SCH ×2 (09:50→20:12)
[2022-10-06] MEDS: amLODIPine BESYLATE 5 MG TAB PO SCH (09:50)
--- NOTE | 2022-10-06 11:26 | Electrocardiogram Report ---
Test Reason : Blood Pressure : / mmHG Vent. Rate : 058 BPM Atrial Rate : 058 BPM P-R Int : 214 ms QRS Dur : 088 ms QT Int : 602 ms P-R-T Axes : 079 -11 068 degrees QTc Int : 590 ms Sinus bradycardia with 1st degree A-V block Nonspecific T wave abnormality Probably normal QT Abnormal ECG When compared with ECG of 05-OCT-2022 05:14, QT prolonged; hard to determine due to baseline artifact Confirmed by Ajay Aponte ([id number]) on 10/06/2022 11:26:32 AM Referred By: REFERRED SELF Confirmed By:Ajay Aponte
[2022-10-06] MEDS ORDERED: POTASSIUM CHLORIDE CRTAB 20 MEQ TABCR PO STA (13:01)
--- NOTE | 2022-10-06 15:20 | Cardiology Progress Note ---
Date of Service October 06, 2022 Assessment & Plan (1) Dyspnea on exertion: (2) Diastolic dysfunction: (3) Prolonged QT interval: (4) PAF (paroxysmal atrial fibrillation): (5) On amiodarone therapy: Plan 87-year-old female with hypertension, diastolic dysfunction and paroxysmal atrial fibrillation presents with complaints of exertional dyspnea not yet well- defined Echocardiogram demonstrates preserved LV systolic function Chest x-ray without infiltrate or edema EKG concerning for prolonged QT interval though in part due to procedural measurement Plan: Hold amiodarone with daily EKG Consider possible stress testing after QT shortens ABG with possible pulmonary screening depending on results Resume oral diuretic as ordered on a daily basis Supplement potassium 10/06/2022 QTc remains prolonged after amiodarone held Feeling well at rest We will consider possible Lexiscan nuclear stress test prior to discharge Admission and Anticipated Discharge Date Admission Date: October 05, 2022 Subjective Patient seen and examined. Chart reviewed. Telemetry reviewed. Currently states that she is feeling well at rest. Review of Systems Review of Systems: All systems reviewed & are unremarkable except as noted in HPI & below Physical Exam Physical Exam: General: Awake, alert and oriented x 3. No acute distress. HEENT: Normocephalic, atraumatic. Pupils equal, round and reactive to light and accommodation. Extraocular muscles are intact. Anicteric sclera. Moist mucous membranes. Neck: No JVD. No bruit. Cardiovascular: Regular. Positive S-4. Normal S-1 and S-2. No S-3. 3/6 mid to late systolic ejection murmur, greatest at the right sternal border, second intercostal space with radiation to the bilateral carotids. No rubs. Pulmonary: Clear to auscultation bilaterally. No rales, rhonchi, or wheezing. Abdomen: Bowel sounds x 4, soft. No rebound, guarding or tenderness. No organomegaly. Extremities: No clubbing, cyanosis or edema. +2 pedal pulses bilaterally. Skin: Warm and dry. Results & Data ([facility]) Vital Signs (Past 12 Hours) Vital Signs Temp Pulse Pulse Resp BP Pulse Ox O2 Del Method 10/06/22 05:59 55 L 10/06/22 14:07 Room Air 10/06/22 11:13 37.0 C 60 18 152/62 H 92 Room Air 10/06/22 07:52 37.0 C 60 18 161/75 H 92 Room Air 10/06/22 03:36 37.1 C 61 18 159/69 H 93 Room Air
[2022-10-07] MEDS: LEVOTHYROXINE SODIUM 88 MCG TABLET PO SCH (05:13)
[2022-10-07 06:26] LABS: Hematocrit (blood only) 34.5 % (37.0-47.0); Hemoglobin 10.1 g/dl (12.0-16.0)
[2022-10-07 06:38] LABS: BUN Creatinine Ratio 27.3 (10-20); Calcium 9.6 mg/dl (8.5-10.1); Creatinine Clr Calc Pharmacy 58.5 ml/min; Est GFR (African American) 96.4 ml/min; Est GFR (Non-African American) 83.2 ml/min; Magnesium 2.2 mg/dl (1.7-2.4); Potassium 4.3 mmol/L (3.5-5.1)
--- NOTE | 2022-10-07 07:49 | Hospitalist Progress Note ---
Date of Service October 07, 2022 Assessment & Plan (1) Prolonged QT interval: (2) Dyspnea on exertion: Plan: This is an 87-year-old female who presents chest pain and dyspnea on exertion. 1. Chest tightness and dyspnea on exertion: As per the daughter, she has some wheezing, but currently no wheezing heard. Chest x-ray looks clear and the patient is worried that she might have developed asthma as her twin sister developed asthma a couple of years ago. We will rule out acute coronary syndrome with serial enzymes, echo. Monitor in the tele floor. We will give neb treatments and see if that helps. Troponin x3 negative Echo obtained LV is normal in size. There is mild concentric LVH. LV wall motion is normal. EF 60 to 65%. Diastolic dysfunction, grade 2, consistent with elevated left atrial pressure. LA is moderately dilated. There is mild mitral regurg. There is trace tricuspid regurg. RV systolic pressure is elevated at 30 to 40 mmHg. prolonged QT Cardiology was consulted EKG w/ prolonged QT interval Hold amiodarone with daily EKGs Consider stress testing after QT shortens Replete electrolytes as needed 10/07 - currently patient denies any dyspnea with exertion, she was able to wash herself today. However repeat EKG still with significantly prolonged QT. Amiodarone was stopped and cardiology is following closely. 2. History of paroxysmal atrial fibrillation/flutter: On chronic Eliquis anticoagulation, amiodarone, and metoprolol succinate. Hold amio, as above. 3. Questionable GI bleed notified by RN that the patient had bright red blood per rectum FOBT positive Patient had recent history of sigmoidoscopy, discussed with GI H&H stable Per GI, not likely bleed and okay to resume diet Pt is having soft brown stool Cont. to monitor 4. Hyperlipidemia: On statin. 5. Chronic venous insufficiency: On Lasix as needed. 6. Hypothyroidism: On Synthroid. will check tsh 7. Hypertension: On amlodipine and metoprolol succinate. Will monitor the blood pressure. 8. Anemia. Hb 11.7 on admission. Has been ~10 since admission. Hemoccult positive, discussed w/ GI as above. DVT prophylaxis: On Eliquis. DISPOSITION:med tele. PT/OT prior to discharge. CODE: full code Admission and Anticipated Discharge Date Admission Date: October 05, 2022 Subjective Pt seen in follow up of dyspnea on exertion, found to have prolonged QT Currently denies any dyspnea on exertion. Says she was able to wash herself today and felt ok. Currently sitting up in bed, eating lunch. She is currently in NAD Denies any chest pain or palpitations Currently awake alert oriented, able to answer questions appropriately. Denies any fevers chills cough, abdominal pain, nausea or vomiting. QTc prolonged, amiodarone on hold, cardiology following. Review of Systems Review of Systems: All systems reviewed & are unremarkable except as noted in Subjective Physical Exam Physical Exam: GENERAL: elderly frail F, not in acute distress. HEENT: NC/AT. EOMI. Pupils equal, round and reactive to light. Oral mucosa moist. NECK: No JVD, no neck masses. CARDIOVASCULAR: S1 and S2 heard. Regular rate and rhythm. No murmur, no gallop. RESPIRATORY:No accessory muscle use. No wheezing, no crackles. ABDOMEN: Soft, bowel sounds present, nontender, no distention. NEURO: Alert and oriented. Speech is clear. No facial droop. Obeys simple commands. Moves extremities. EXTREMITIES: minimal lower extremity edema, no erythema seen. Results & Data Results & Data ([facility]) Vital Signs (Past 12 Hours) Vital Signs Temp Pulse Pulse Resp BP Pulse Ox O2 Del Method 10/07/22 07:15 36.7 C 55 L 18 161/53 H 97 Room Air 10/07/22 03:29 36.8 C 56 L 18 141/61 H 92 Room Air 10/06/22 22:01 54 L 10/06/22 22:45 36.9 C 53 L 18 128/49 L 96 Room Air Laboratory Results 10/07/22 10/07/22 10/06/22 Range/Units 05:47 05:47 09:50 Hgb 10.1 L (12.0-16.0) g/dl Hct 34.5 L (37.0-47.0) % Sodium 140 (136-145) mmol/L Potassium 4.3 (3.5-5.1) mmol/L Chloride 109 H (98-107) mmol/L Carbon Dioxide 26 (21-32) mmol/L Anion Gap 5 (3-11) BUN 15 (6-23) mg/dl Creatinine 0.55 L (0.6-1.2) mg/dl Est Cr Clr Drug Dosing 58.5 ml/min Est GFR ( Amer) 96.4 ml/min Est GFR (Non-Af Amer) 83.2 ml/min BUN/Creatinine Ratio 27.3 H (10-20) Glucose 82 (70-99(Fasting)) mg/dl Calcium 9.6 (8.5-10.1) mg/dl Magnesium 2.2 (1.7-2.4) mg/dl Stool Occult Bld Scrn Positive A (Negative) Medications Administered Current Inpatient Medications Acetaminophen (Acetaminophen 325 Mg Tab) 650 mg PO Q4H PRN PRN Reason: Pain or Fever Stop: 11/04/22 00:43 Amlodipine Besylate (Amlodipine Besylate 5 Mg Tab) 5 mg PO DAILY JAREK Stop: 11/04/22 08:59 Last Admin: 10/06/22 09:50 Dose: 5 mg Apixaban (Apixaban 5 Mg Tablet) 5 mg PO BID JAREK Stop: 11/04/22 00:43 Last Admin: 10/06/22 20:12 Dose: 5 mg Calcium/Vitamin D (Calcium 600mg + Vit D 400 Iu Tab) 1 tab PO BID JAREK Stop: 11/04/22 08:59 Last Admin: 10/06/22 20:12 Dose: 1 tab Docusate Sodium (Docusate Sodium 100 Mg Cap) 200 mg PO DAILY JAREK Stop: 11/04/22 08:59 Last Admin: 10/06/22 09:49 Dose: Not Given Furosemide (Furosemide 40 Mg Tab) 40 mg PO DAILY PRN PRN Reason: Fluid Retention Stop: 11/04/22 00:43 Levothyroxine Sodium (Levothyroxine Sodium 88 Mcg Tablet) 88 mcg PO DAILYBB JAREK Stop: 11/04/22 06:29 Last Admin: 10/07/22 05:13 Dose: 88 mcg Metoprolol Succinate (Metoprolol Succ 50mg Ext Rel Tab) 50 mg PO BID JAREK Stop: 11/04/22 00:43 Last Admin: 10/06/22 20:12 Dose: 50 mg Multivitamins/Minerals (Cerovite Adv Formula Tab) 1 tab PO DAILY JAREK Stop: 11/04/22 08:59 Last Admin: 10/06/22 09:49 Dose: 1 tab Nitroglycerin (Nitroglycerin Sl 0.4 Mg/Tab Tab) 0.4 mg SL UD PRN PRN Reason: Chest Pain Stop: 11/04/22 00:43 Pantoprazole Sodium (Pantoprazole 40 Mg Tab) 40 mg PO DAILY JAREK Stop: 11/04/22 08:59 Last Admin: 10/06/22 09:49 Dose: 40 mg Polyethylene Glycol (Polyethylene (Miralax) 17 Gm Pack) 17 gm PO DAILY PRN PRN Reason: Constipation Stop: 11/04/22 00:43 Rosuvastatin Calcium (Rosuvastatin Calcium 10 Mg Tab) 10 mg PO Q48H JAREK Stop: 11/04/22 08:59 Last Admin: 10/05/22 08:15 Dose: 10 mg
[2022-10-07] MEDS: PANTOprazole 40 MG TAB PO SCH (08:08)
[2022-10-07] MEDS: amLODIPine BESYLATE 5 MG TAB PO SCH (08:08)
[2022-10-07] MEDS: ROSUVASTATIN CALCIUM 10 MG TAB PO SCH (08:08)
[2022-10-07] MEDS: APIXABAN 5 MG TABLET PO SCH ×2 (08:08→20:58)
[2022-10-07] MEDS: METOPROLOL SUCC 50MG EXT REL TAB PO SCH ×2 (08:09→20:58)
[2022-10-07] MEDS: CALCIUM 600MG + VIT D 400 IU TAB PO SCH ×2 (08:09→20:58)
[2022-10-07] MEDS: CEROVITE ADV FORMULA TAB PO SCH (08:09)
[2022-10-07] MEDS: DOCUSATE SODIUM 100 MG CAP PO SCH (08:09)
--- NOTE | 2022-10-07 09:51 | Gastroenterology Progress Note ---
Date of Service October 07, 2022 Assessment & Plan (1) Acute GI bleeding: Plan: She is doing well. She had a concern about this combination of meds she takes to move her her bowels at home. I told her that at age 87 she should just take what works for her. She is getting all stools hemocculted. I do not think this is necessary at this time. Will sign off. Please call if my services needed again Admission and Anticipated Discharge Date Admission Date: October 05, 2022 Subjective No further bleeding. Stools a little loose without blood. H/H are stable. Happy because she is eating Physical Exam Constitutional: WD/WN, vitals as above Results & Data ([facility]) Vital Signs (Past 12 Hours) Vital Signs Temp Pulse Pulse Resp BP Pulse Ox O2 Del Method 10/07/22 08:16 Room Air 10/07/22 07:15 36.7 C 55 L 18 161/53 H 97 Room Air 10/07/22 03:29 36.8 C 56 L 18 141/61 H 92 Room Air 10/06/22 22:01 54 L 10/06/22 22:45 36.9 C 53 L 18 128/49 L 96 Room Air
--- NOTE | 2022-10-07 14:58 | Cardiology Progress Note ---
Date of Service October 07, 2022 Assessment & Plan (1) Dyspnea on exertion: (2) Diastolic dysfunction: (3) Prolonged QT interval: (4) PAF (paroxysmal atrial fibrillation): (5) On amiodarone therapy: Plan 87-year-old female with hypertension, diastolic dysfunction and paroxysmal atrial fibrillation presents with complaints of exertional dyspnea not yet well- defined Echocardiogram demonstrates preserved LV systolic function Chest x-ray without infiltrate or edema EKG concerning for prolonged QT interval though in part due to procedural measurement Plan: Hold amiodarone with daily EKG Consider possible stress testing after QT shortens ABG with possible pulmonary screening depending on results Resume oral diuretic as ordered on a daily basis Supplement potassium 10/06/2022 QTc remains prolonged after amiodarone held Feeling well at rest We will consider possible Lexiscan nuclear stress test prior to discharge 10/07/2022 The computer reads her QT level is prolonged to 700 ms but upon further inspection I believe this is counting a significant U wave and thus falsely increased Amiodarone will obviously be discontinued. Ideally, I would like to get more beta-serene in to her at this time but given her resting bradycardia I am unable to. Ultimately, should she lapse back into A-fib she might require pacemaker placement for tachybradycardia syndrome. We will continue to follow Given her presenting symptoms of acute shortness of breath and chest discomfort I do believe ischemic evaluation is warranted so she will undergo a Lexiscan nuclear stress test in the a.m. N.p.o. after midnight Admission and Anticipated Discharge Date Admission Date: October 05, 2022 Subjective Patient seen and examined. Chart reviewed. Telemetry reviewed. States that she feels well today. Review of Systems Review of Systems: All systems reviewed & are unremarkable except as noted in HPI & below Physical Exam Physical Exam: General: Awake, alert and oriented x 3. No acute distress. HEENT: Normocephalic, atraumatic. Pupils equal, round and reactive to light and accommodation. Extraocular muscles are intact. Anicteric sclera. Moist mucous membranes. Neck: No JVD. No bruit. Cardiovascular: Regular. Positive S-4. Normal S-1 and S-2. No S-3. 3/6 mid to late systolic ejection murmur, greatest at the right sternal border, second intercostal space with radiation to the bilateral carotids. No rubs. Pulmonary: Clear to auscultation bilaterally. No rales, rhonchi, or wheezing. Abdomen: Bowel sounds x 4, soft. No rebound, guarding or tenderness. No organomegaly. Extremities: No clubbing, cyanosis or edema. +2 pedal pulses bilaterally. Skin: Warm and dry. Results & Data ([facility]) Vital Signs (Past 12 Hours) Vital Signs Temp Pulse Resp BP Pulse Ox O2 Del Method 10/07/22 11:09 36.8 C 55 L 18 122/69 93 Room Air 10/07/22 08:16 Room Air 10/07/22 07:15 36.7 C 55 L 18 161/53 H 97 Room Air 10/07/22 03:29 36.8 C 56 L 18 141/61 H 92 Room Air
--- NOTE | 2022-10-07 15:02 | Electrocardiogram Report ---
Test Reason : Blood Pressure : / mmHG Vent. Rate : 054 BPM Atrial Rate : 054 BPM P-R Int : 212 ms QRS Dur : 086 ms QT Int : 644 ms P-R-T Axes : 066 -11 034 degrees QTc Int : 610 ms Sinus bradycardia with 1st degree A-V block Nonspecific T wave abnormality Prolonged QT Abnormal ECG When compared with ECG of 06-OCT-2022 05:08, No significant change was found Confirmed by Ajay Aponte ([id number]) on 10/07/2022 3:02:20 PM Referred By: REFERRED SELF Confirmed By:Ajay Aponte
[2022-10-08] MEDS: LEVOTHYROXINE SODIUM 88 MCG TABLET PO SCH (06:23)
[2022-10-08] MEDS: METOPROLOL SUCC 50MG EXT REL TAB PO SCH (08:24)
[2022-10-08] MEDS: CEROVITE ADV FORMULA TAB PO SCH (08:24)
[2022-10-08] MEDS: PANTOprazole 40 MG TAB PO SCH (08:24)
[2022-10-08 08:25] LABS: Calcium 9.5 mg/dl (8.5-10.1); Creatinine Clr Calc Pharmacy 52.9 ml/min; Est GFR (African American) 93.7 ml/min; Est GFR (Non-African American) 80.8 ml/min; Magnesium 2.1 mg/dl (1.7-2.4); Potassium 3.6 mmol/L (3.5-5.1)
[2022-10-08] MEDS: amLODIPine BESYLATE 5 MG TAB PO SCH (08:25)
[2022-10-08] MEDS: CALCIUM 600MG + VIT D 400 IU TAB PO SCH (08:25)
[2022-10-08] MEDS: DOCUSATE SODIUM 100 MG CAP PO SCH (08:25)
[2022-10-08] MEDS: APIXABAN 5 MG TABLET PO SCH (08:26)
--- NOTE | 2022-10-08 08:45 | Electrocardiogram Report ---
Test Reason : Blood Pressure : / mmHG Vent. Rate : 057 BPM Atrial Rate : 057 BPM P-R Int : 220 ms QRS Dur : 084 ms QT Int : 720 ms P-R-T Axes : 079 -17 047 degrees QTc Int : 700 ms Sinus bradycardia with 1st degree A-V block Nonspecific T wave abnormality Abnormal ECG When compared with ECG of 07-OCT-2022 05:06, (unconfirmed) QT has lengthened Confirmed by Sean Munoz ([id number] on 10/08/2022 8:45:35 AM Referred By: REFERRED SELF Confirmed By:Jarett Munoz
--- NOTE | 2022-10-08 09:08 | Emergency Department Note ---
Impression & Plan Dyspnea, Anemia, Hypokalemia ED Provider Note NAME: JASE NAYAK AGE: 87 SEX: F : 1935 ARRIVES VIA: Walk-In INFORMANT: Patient, ED PROVIDER(S): Dave Chaudhry MD CHIEF COMPLAINT: Shortness of breath presents with shortness of breath. IV was established blood work was obtained. MEDICAL DECISION MAKING: Patient EKG with no signs of obvious ischemia. Blood work shows normal white count mild anemia and thrombocytosis. Kidney function with prerenal azotemia mild hypokalemia. Patient discussed close outpatient f/u vs admission and monitoring given worsening SOB. After discussion w/ patient and daughter, will admit to medicine service. Prior /Outside records reviewed: Discharge summary from 03/07 reviewed. Had GI bleeding. Differential diagnosis: Reactive airway disease, pneumonia, pneumothorax, COPD, CHF, infections, cardiac ischemia, pulmonary embolism, musculoskeletal, gastrointestinal, as well as other pathologies. Diagnostics, as interpreted by me: ECG: Sinus 1st degree block w/ bradycardia, rate of 57, prolonged VA, prolonged QT, nonspecific T wave abnormality, no ST elevations. Cardiac monitoring: An order was placed for continuous cardiac monitoring. The monitor shows a rate of 64 with sinus rhythm. Patient was placed on pulse oximetry Medical decision rules: none Imaging studies: See below HPI: Patient presents with worsening shortness of breath over approximately 10 days but seemed more severe this morning with associated wheezing. Daughter does have a known history of asthma but patient has remote history of smoking but not in many years. Patient denies leg swelling or calf pain. No history of blood clots. No recent procedures hospitalizations or prolonged car or plane travel. Patient does feel better since this morning. Patient did not try anything at home but did take her regular medications. No chest pains. The patient did have a sigmoidoscopy on Saturday. No issues at that time. Patient is concerned about possible anemia as the patient did require transfusion after some GI bleeding in the past. This was reportedly secondary to bleeding polyps. PAST MEDICAL HISTORY: See Below PAST SURGICAL HISTORY: See Below SOCIAL HISTORY: See Below HOME MEDICATIONS: See Below ALLERGIES: See Below VITALS: See Below PHYSICAL EXAMINATION: GENERAL: NAD, wearing a mask, non-toxic. Hard of hearing. Wearing glasses. EYE EXAM: Normal conjunctiva. PERRL, no anisocoria and EOM's grossly intact w/o pain. NECK: Supple, no nuchal rigidity, no adenopathy, non-tender. No signs of meningismus. FROM of the neck with good chin to chest and neck extension. No stridor. LUNGS: Clear to auscultation. Normal chest wall mechanics. HEART: NSR, no MRG. ABDOMEN: Abdomen soft, non-tender, normo-active bowel sounds, no masses, no rebound or guarding. BACK: No CVA TTP. SKIN: No rashes and no bruising. UPPER EXTREMITIES: Upper extremities are grossly normal. LOWER EXTREMITIES: Grossly normal, no edema. Negative Anupama's sign b/l. NEURO EXAM: A&O x3, cranial nerves II-XII grossly intact, normal speech, moves all 4 extremities. Past Med/Surg History Medical History (Updated 10/08/22 @ 09:10 by Dave Chaudhry MD) GERD (gastroesophageal reflux disease) History of PSVT (paroxysmal supraventricular tachycardia) HLD (hyperlipidemia) Macular degeneration Osteoporosis PAF (paroxysmal atrial fibrillation) Surgical History History of appendectomy History of History of cataract extraction History of cholecystectomy History of lumbar laminectomy History of total hysterectomy with bilateral salpingo-oophorectomy (BSO) Family History Father , age 65 Myocardial infarction Mother Coronary heart disease CHF (congestive heart failure) Sister Atrial fibrillation Social History Smoking Status: Never smoker Tobacco Type: Cigarettes Cigarettes Per Day: 10; Hx Alcohol Use: No Hx Substance Use: No Preferred Language: Nigerien Communication Ability: Effective Hearing Ability: Use of Hearing Aid Director Clinical Applications Required: No Beliefs That Will Affect Care: None marital status: / Current Living Situation: Alone current occupational status: retired Other Information That Helps Us Care for You: No other: walks with cane, still drives Feels Safe at Home: Yes Safety Concerns: Feels Safe At This Time Assistive Devices: Cane, Glasses, Walker and Wheelchair Allergies Allergies Allergy/AdvReac Type Severity Reaction Status Date / Time Sulfa (Sulfonamide Allergy Intermediate Hives Verified 10/04/22 20:38 Antibiotics) sulfamethoxazole Allergy Intermediate Hives Verified 10/04/22 20:38 trimethoprim Allergy Intermediate Hives Verified 10/04/22 20:38 epinephrine Allergy Unknown ON [facility] MED Verified 10/04/22 20:38 LIST Home Meds Home Medications Medication Instructions Recorded Confirmed calcium carbonate 500 mg-vitamin 1 tab PO BID 09/26/18 10/04/22 D3 5 mcg (200 unit) tablet (Os-Ethan 500 + D3) furosemide 40 mg tablet (Lasix) 40 mg PO DAILY PRN Fluid Retention 09/26/18 10/04/22 rosuvastatin 10 mg tablet (Crestor) 10 mg PO Q2D 09/26/18 10/04/22 docusate sodium 100 mg capsule 200 mg PO DAILY 12/09/18 10/04/22 (Colace) omeprazole 20 mg capsule,delayed 20 mg PO DAILY 12/09/18 10/04/22 release amiodarone 200 mg tablet 200 mg PO DAILY 02/23/20 10/04/22 acetaminophen 500 mg tablet 1,000 mg PO Q6H PRN PAIN/FEVER 10/04/22 10/04/22 (Tylenol Extra Strength) amlodipine 5 mg tablet 5 mg PO DAILY 10/04/22 10/04/22 levothyroxine 88 mcg tablet 88 mcg PO DAILYBB 10/04/22 10/04/22 vit C 250 mg-vit E 90 mg-zinc 40 1 tab PO BID 10/04/22 10/04/22 mg-copper 1 [id number]-nxnzuo-[id number] capsule (PreserVision AREDS-2) Previous Rx's Medication Instructions Recorded apixaban 5 mg tablet (Eliquis) 5 mg PO BID #60 tabs 10/31/18 metoprolol succinate 50 mg 50 mg PO BID #60 tabs 10/31/18 tablet,extended release 24 hr Results & Data (ED) Home Medications Current Medication List: was personally reviewed by me Laboratory Data Attestation: I reviewed the patient's lab results. 10/07/22 05:47 10/08/22 07:32 Lab Results 10/04/22 10/04/22 10/04/22 Range/Units 18:19 18:19 18: WBC 8.12 (4.8-10.8) K/ul RBC 4.65 (4.20-5.40) M/uL Hgb 11.4 L (12.0-16.0) g/dl Hct 37.6 (37.0-47.0) % MCV 80.9 (80.0-100.0) fL MCH 24.5 L (25.0-34.0) pg MCHC 30.3 L (32.0-36.0) g/dL RDW Std Deviation 51.4 H (36.4-46.3) fL RDW Coeff of Tere 17.6 H (11.5-14.5) % Plt Count 425 H (130-400) K/uL MPV 10.4 (9.4-12.4) fL Immature Gran % (Auto) 0.2 % Neut % (Auto) 66.0 % Lymph % (Auto) 22.8 % Ellis % (Auto) 9.5 % Eos % (Auto) 1.1 % Baso % (Auto) 0.4 % Neut # (Auto) 5.36 (1.40-6.50) K/uL Lymph # (Auto) 1.85 (1.2-3.4) K/uL Ellis # (Auto) 0.77 H (0.11-0.59) K/uL Eos # (Auto) 0.09 (0-0.50) K/uL Baso # (Auto) 0.03 (0-0.2) K/uL Immature Gran # (Auto) 0.02 (0.01-0.20) K/uL PT 10.8 (9.0-12.0) Seconds INR 1.0 (0.9-1.1) APTT 28.4 (21.0-31.0) Seconds PTT Ratio 1.0 Sodium 141 (136-145) mmol/L Potassium 3.7 (3.5-5.1) mmol/L Chloride 109 H (98-107) mmol/L Carbon Dioxide 27 (21-32) mmol/L Anion Gap 5 (3-11) BUN 21 (6-23) mg/dl Creatinine 0.63 (0.6-1.2) mg/dl Est Cr Clr Drug Dosing Not Reportable Est GFR ( Amer) 92.2 ml/min Est GFR (Non-Af Amer) 79.5 ml/min BUN/Creatinine Ratio 33.3 H (10-20) Glucose 93 (70-99(Fasting)) mg/dl Calcium 10.0 (8.5-10.1) mg/dl Magnesium 2.2 (1.7-2.4) mg/dl Total Bilirubin 0.5 (0.2-1.0) mg/dl AST 17 (13-39) U/L ALT 14 (7-52) U/L Alkaline Phosphatase 95 (34-104) U/L Troponin I High Sens 6.2 (0-14) pg/ml Total Protein 7.1 (6.0-8.3) gm/dl Albumin 4.3 (3.4-5.0) gm/dl Globulin 2.8 (2.5-4.0) gm/dl Albumin/Globulin Ratio 1.5 (0.9-2) Urine Color Urine Appearance (Clear) Urine pH (4.5-7.5) Ur Specific [place] (1.000-1.030) Urine Protein (Negative) Urine Glucose (UA) (Negative) Urine Ketones (Negative) Urine Blood (Negative) Urine Nitrite (Negative) Urine Bilirubin (Negative) Urine Urobilinogen (Negative) Ur Leukocyte Esterase (Negative) Urine WBC (Auto) (0-5) /hpf Urine RBC (Auto) (0-4) /hpf U Hyaline Cast (Auto) (0-5) /lpf U Epithel Cells (Auto) (0-5) /lpf Urine Bacteria (Auto) (Negative) SARS-CoV-2, RNA, NAAT (NEGATIVE) 10/04/22 10/04/22 10/05/22 Range/Units 21:28 22:12 05:56 WBC 7.55 (4.8-10.8) K/ul RBC 4.14 L (4.20-5.40) M/uL Hgb 10.0 L (12.0-16.0) g/dl Hct 33.0 L (37.0-47.0) % MCV 79.7 L (80.0-100.0) fL MCH 24.2 L (25.0-34.0) pg MCHC 30.3 L (32.0-36.0) g/dL RDW Std Deviation 50.3 H (36.4-46.3) fL RDW Coeff of Tere 17.2 H (11.5-14.5) % Plt Count 340 (130-400) K/uL MPV 9.8 (9.4-12.4) fL Immature Gran % (Auto) 0.4 % Neut % (Auto) 60.9 % Lymph % (Auto) 26.2 % Ellis % (Auto) 11.5 % Eos % (Auto) 0.5 % Baso % (Auto) 0.5 % Neut # (Auto) 4.59 (1.40-6.50) K/uL Lymph # (Auto) 1.98 (1.2-3.4) K/uL Ellis # (Auto) 0.87 H (0.11-0.59) K/uL Eos # (Auto) 0.04 (0-0.50) K/uL Baso # (Auto) 0.04 (0-0.2) K/uL Immature Gran # (Auto) 0.03 (0.01-0.20) K/uL PT (9.0-12.0) Seconds INR (0.9-1.1) APTT (21.0-31.0) Seconds PTT Ratio Sodium (136-145) mmol/L Potassium (3.5-5.1) mmol/L Chloride (98-107) mmol/L Carbon Dioxide (21-32) mmol/L Anion Gap (3-11) BUN (6-23) mg/dl Creatinine (0.6-1.2) mg/dl Est Cr Clr Drug Dosing Est GFR ( Amer) ml/min Est GFR (Non-Af Amer) ml/min BUN/Creatinine Ratio (10-20) Glucose (70-99(Fasting)) mg/dl Calcium (8.5-10.1) mg/dl Magnesium (1.7-2.4) mg/dl Total Bilirubin (0.2-1.0) mg/dl AST (13-39) U/L ALT (7-52) U/L Alkaline Phosphatase (34-104) U/L Troponin I High Sens (0-14) pg/ml Total Protein (6.0-8.3) gm/dl Albumin (3.4-5.0) gm/dl Globulin (2.5-4.0) gm/dl Albumin/Globulin Ratio (0.9-2) Urine Color Yellow Urine Appearance Clear (Clear) Urine pH 7.0 (4.5-7.5) Ur Specific [place] 1.007 (1.000-1.030) Urine Protein Negative (Negative) Urine Glucose (UA) Negative (Negative) Urine Ketones Trace H (Negative) Urine Blood Negative (Negative) Urine Nitrite Negative (Negative) Urine Bilirubin Negative (Negative) Urine Urobilinogen Negative (Negative) Ur Leukocyte Esterase Trace H (Negative) Urine WBC (Auto) 1-5 (0-5) /hpf Urine RBC (Auto) 0-4 (0-4) /hpf U Hyaline Cast (Auto) 0 (0-5) /lpf U Epithel Cells (Auto) 5-10 H (0-5) /lpf Urine Bacteria (Auto) Negative (Negative) SARS-CoV-2, RNA, NAAT NEGATIVE (NEGATIVE) 10/05/22 10/05/22 10/05/22 Range/Units 05:56 11:32 16:38 WBC (4.8-10.8) K/ul RBC (4.20-5.40) M/uL Hgb (12.0-16.0) g/dl Hct (37.0-47.0) % MCV (80.0-100.0) fL MCH (25.0-34.0) pg MCHC (32.0-36.0) g/dL RDW Std Deviation (36.4-46.3) fL RDW Coeff of Tere (11.5-14.5) % Plt Count (130-400) K/uL MPV (9.4-12.4) fL Immature Gran % (Auto) % Neut % (Auto) % Lymph % (Auto) % Ellis % (Auto) % Eos % (Auto) % Baso % (Auto) % Neut # (Auto) (1.40-6.50) K/uL Lymph # (Auto) (1.2-3.4) K/uL Ellis # (Auto) (0.11-0.59) K/uL Eos # (Auto) (0-0.50) K/uL Baso # (Auto) (0-0.2) K/uL Immature Gran # (Auto) (0.01-0.20) K/uL PT (9.0-12.0) Seconds INR (0.9-1.1) APTT (21.0-31.0) Seconds PTT Ratio Sodium 143 (136-145) mmol/L Potassium 3.3 L (3.5-5.1) mmol/L Chloride 111 H (98-107) mmol/L Carbon Dioxide 25 (21-32) mmol/L Anion Gap 7 (3-11) BUN 14 (6-23) mg/dl Creatinine 0.48 L (0.6-1.2) mg/dl Est Cr Clr Drug Dosing 67.3 Est GFR ( Amer) 100.8 ml/min Est GFR (Non-Af Amer) 87.0 ml/min BUN/Creatinine Ratio 29.2 H (10-20) Glucose 84 (70-99(Fasting)) mg/dl Calcium 9.3 (8.5-10.1) mg/dl Magnesium 2.1 (1.7-2.4) mg/dl Total Bilirubin (0.2-1.0) mg/dl AST (13-39) U/L ALT (7-52) U/L Alkaline Phosphatase (34-104) U/L Troponin I High Sens 7.2 7.0 6.9 (0-14) pg/ml Total Protein (6.0-8.3) gm/dl Albumin (3.4-5.0) gm/dl Globulin (2.5-4.0) gm/dl Albumin/Globulin Ratio (0.9-2) Urine Color Urine Appearance (Clear) Urine pH (4.5-7.5) Ur Specific [place] (1.000-1.030) Urine Protein (Negative) Urine Glucose (UA) (Negative) Urine Ketones (Negative) Urine Blood (Negative) Urine Nitrite (Negative) Urine Bilirubin (Negative) Urine Urobilinogen (Negative) Ur Leukocyte Esterase (Negative) Urine WBC (Auto) (0-5) /hpf Urine RBC (Auto) (0-4) /hpf U Hyaline Cast (Auto) (0-5) /lpf U Epithel Cells (Auto) (0-5) /lpf Urine Bacteria (Auto) (Negative) SARS-CoV-2, RNA, NAAT (NEGATIVE) Administered Medications Amlodipine Besylate (Amlodipine Besylate 5 Mg Tab) 5 mg PO DAILY JAREK Stop: 11/04/22 08:59 Last Admin: 10/08/22 08:25 Dose: 5 mg Documented By: [id number] Admin: 10/07/22 08:08 Dose: 5 mg Documented By: Admin: 10/06/22 09:50 Dose: 5 mg Documented By: Admin: 10/05/22 08:15 Dose: 5 mg Documented By: CANELO Apixaban (Apixaban 5 Mg Tablet) 5 mg PO BID JAREK Stop: 11/04/22 00:43 Last Admin: 10/08/22 08:26 Dose: 5 mg Documented By: [id number] Admin: 10/07/22 20:58 Dose: 5 mg Documented By: Admin: 10/07/22 08:08 Dose: 5 mg Documented By: Admin: 10/06/22 20:12 Dose: 5 mg Documented By: Admin: 10/06/22 09:50 Dose: 5 mg Documented By: Admin: 10/05/22 20:15 Dose: 5 mg Documented By: Admin: 10/05/22 08:15 Dose: 5 mg Documented By: Admin: 10/05/22 01:23 Dose: 5 mg Documented By: PRASAD Calcium/Vitamin D (Calcium 600mg + Vit D 400 Iu Tab) 1 tab PO BID JAREK Stop: 11/04/22 08:59 Last Admin: 10/08/22 08:25 Dose: 1 tab Documented By: [id number] Admin: 10/07/22 20:58 Dose: 1 tab Documented By: Admin: 10/07/22 08:09 Dose: 1 tab Documented By: Admin: 10/06/22 20:12 Dose: 1 tab Documented By: Admin: 10/06/22 09:50 Dose: 1 tab Documented By: Admin: 10/05/22 20:15 Dose: 1 tab Documented By: Admin: 10/05/22 08:15 Dose: 1 tab Documented By: CANELO Docusate Sodium (Docusate Sodium 100 Mg Cap) 200 mg PO DAILY JAREK Stop: 11/04/22 08:59 Last Admin: 10/08/22 08:25 Dose: 200 mg Documented By: [id number] Admin: 10/07/22 08:09 Dose: Not Given Documented By: Admin: 10/06/22 09:49 Dose: Not Given Documented By: Admin: 10/05/22 10:09 Dose: Not Given Documented By: CANELO Levothyroxine Sodium (Levothyroxine Sodium 88 Mcg Tablet) 88 mcg PO DAILYBB JAREK Stop: 11/04/22 06:29 Last Admin: 10/08/22 06:23 Dose: 88 mcg Documented By: Admin: 10/07/22 05:13 Dose: 88 mcg Documented By: Admin: 10/06/22 05:13 Dose: 88 mcg Documented By: Admin: 10/05/22 05:23 Dose: 88 mcg Documented By: PRASAD Metoprolol Succinate (Metoprolol Succ 50mg Ext Rel Tab) 50 mg PO BID JAREK Stop: 11/04/22 00:43 Last Admin: 10/08/22 08:24 Dose: 50 mg Documented By: [id number] Admin: 10/07/22 20:58 Dose: 50 mg Documented By: Admin: 10/07/22 08:09 Dose: Not Given Documented By: Admin: 10/06/22 20:12 Dose: 50 mg Documented By: Admin: 10/06/22 09:50 Dose: 50 mg Documented By: Admin: 10/05/22 20:16 Dose: 50 mg Documented By: Admin: 10/05/22 08:15 Dose: 50 mg Documented By: Admin: 10/05/22 01:23 Dose: 50 mg Documented By: PRASAD Multivitamins/Minerals (Cerovite Adv Formula Tab) 1 tab PO DAILY JAREK Stop: 11/04/22 08:59 Last Admin: 10/08/22 08:24 Dose: 1 tab Documented By: [id number] Admin: 10/07/22 08:09 Dose: 1 tab Documented By: Admin: 10/06/22 09:49 Dose: 1 tab Documented By: Admin: 10/05/22 08:15 Dose: 1 tab Documented By: CANELO Pantoprazole Sodium (Pantoprazole 40 Mg Tab) 40 mg PO DAILY JAREK Stop: 11/04/22 08:59 Last Admin: 10/08/22 08:24 Dose: 40 mg Documented By: [id number] Admin: 10/07/22 08:08 Dose: 40 mg Documented By: Admin: 10/06/22 09:49 Dose: 40 mg Documented By: Admin: 10/05/22 08:15 Dose: 40 mg Documented By: CANELO Rosuvastatin Calcium (Rosuvastatin Calcium 10 Mg Tab) 10 mg PO Q48H [facility] Stop: 11/04/22 08:59 Last Admin: 10/07/22 08:08 Dose: 10 mg Documented By: Admin: 10/05/22 08:15 Dose: 10 mg Documented By: CANELO Discontinued Medications Albuterol (Albut/Ipratrop 3mg/0.5mg Neb 3 Ml Vial) 3 ml NEB NOW STA; Protocol Stop: 10/04/22 17:08 Last Admin: 10/04/22 21:12 Dose: Not Given Documented By: Amiodarone HCl (Amiodarone 200 Mg Tab) 200 mg PO DAILY [facility] Stop: 11/04/22 08:59 Last Admin: 10/05/22 08:15 Dose: 200 mg Documented By: CANELO Hydralazine HCl (Hydralazine Hcl 20 Mg/Ml Vial) 5 mg IV NOW ONE Stop: 10/04/22 21:18 Last Admin: 10/04/22 21:23 Dose: 5 mg Documented By: Levalbuterol HCl (Levalbuterol 1.25mg/0.5ml Neb) 1.25 mg NEB NOW STA; Protocol Stop: 10/04/22 21:19 Last Admin: 10/04/22 22:14 Dose: 1.25 mg Documented By: Potassium Chloride (Potassium Chloride Crtab 20 Meq Tabcr) 20 meq PO NOW STA Stop: 10/05/22 09:21 Last Admin: 10/05/22 10:06 Dose: 20 meq Documented By: CANELO Potassium Chloride (Potassium Chloride Crtab 20 Meq Tabcr) 20 meq PO NOW STA Stop: 10/06/22 13:02 Last Admin: 10/06/22 13:19 Dose: 20 meq Documented By: CANELO Imaging Data Radiologist's Impression: Chest X-Ray 10/04/22 17:07 XR chest 1V portable CLINICAL HISTORY: Dyspnea TECHNIQUE: Single frontal radiograph of the chest was obtained. Comparison: Comparison is made to chest and abdomen radiographs 03/31/2022 FINDINGS: No lines and tubes are seen. Cardiomegaly is noted. The lungs are clear. No evidence of pleural effusion or pneumothorax. IMPRESSION: No acute abnormalities and in particular no evidence of pneumonia. ACT 112: Negative or not required by law. Electronically signed by: Otilio Hummel M.D. 10/04/2022 5:20 PM Discharge Plan Visit Data Chief Complaint: Respiratory Problems Stated Complaint: SOB,WHEEZING, DIZZY, ED Provider: Dave Chaudhry Discharge Problem: Dyspnea, Anemia, Hypokalemia Patient Disposition: Admitted As Inpatient Discharge Instructions Interventions: ED Discharge Assessment Last Done: 10/05/22 00:14
--- NOTE | 2022-10-08 10:43 | Hospitalist Progress Note ---
Date of Service October 08, 2022 Assessment & Plan (1) Prolonged QT interval: (2) Dyspnea on exertion: Plan: This is an 87-year-old female who presents chest pain and dyspnea on exertion. 1. Chest tightness and dyspnea on exertion: As per the daughter, she has some wheezing, but currently no wheezing heard. Chest x-ray looks clear and the patient is worried that she might have developed asthma as her twin sister developed asthma a couple of years ago. We will rule out acute coronary syndrome with serial enzymes, echo. Monitor in the tele floor. We will give neb treatments and see if that helps. Troponin x3 negative Echo obtained LV is normal in size. There is mild concentric LVH. LV wall motion is normal. EF 60 to 65%. Diastolic dysfunction, grade 2, consistent with elevated left atrial pressure. LA is moderately dilated. There is mild mitral regurg. There is trace tricuspid regurg. RV systolic pressure is elevated at 30 to 40 mmHg. prolonged QT Cardiology was consulted EKG w/ prolonged QT interval Hold amiodarone with daily EKGs Replete electrolytes as needed 10/08 underwent stress test today. Currently she is feeling well. Results from test pending. 2. History of paroxysmal atrial fibrillation/flutter: On chronic Eliquis anticoagulation, amiodarone, and metoprolol succinate. Hold amio, as above. 3. Questionable GI bleed notified by RN that the patient had bright red blood per rectum FOBT positive Patient had recent history of sigmoidoscopy, discussed with GI H&H stable Per GI, not likely bleed and okay to resume diet Pt is having soft brown stool Cont. to monitor 4. Hyperlipidemia: On statin. 5. Chronic venous insufficiency: On Lasix as needed. 6. Hypothyroidism: On Synthroid. will check tsh 7. Hypertension: On amlodipine and metoprolol succinate. Will monitor the blood pressure. 8. Anemia. Hb 11.7 on admission. Has been ~10 since admission. Hemoccult positive, discussed w/ GI as above. DVT prophylaxis: On Eliquis. DISPOSITION:med tele. PT/OT prior to discharge. CODE: full code Admission and Anticipated Discharge Date Admission Date: October 05, 2022 Subjective Pt seen in follow up of dyspnea on exertion, found to have prolonged QT Underwent stress test earlier today, and just returned from there. Says she felt okay overnight, and also this morning. Denies any more dyspnea on exertion. She says she was having some shortness of breath during the stress test. Results from test pending Currently laying in bed in no acute distress. Denies any chest pain or palpitations Currently awake alert oriented, able to answer questions appropriately. Denies any fevers chills cough, abdominal pain, nausea or vomiting. QTc prolonged, amiodarone on hold, cardiology following. Review of Systems Review of Systems: All systems reviewed & are unremarkable except as noted in Subjective Physical Exam Physical Exam: GENERAL: elderly frail F, not in acute distress. HEENT: NC/AT. EOMI. Pupils equal, round and reactive to light. Oral mucosa moist. NECK: No JVD, no neck masses. CARDIOVASCULAR: S1 and S2 heard. Regular rate and rhythm. No murmur, no gallop. RESPIRATORY:No accessory muscle use. No wheezing, no crackles. ABDOMEN: Soft, bowel sounds present, nontender, no distention. NEURO: Alert and oriented. Speech is clear. No facial droop. Obeys simple commands. Moves extremities. EXTREMITIES: minimal lower extremity edema, no erythema seen. Results & Data Results & Data ([facility]) Vital Signs (Past 12 Hours) Vital Signs Temp Pulse Pulse Resp BP BP Pulse Ox 10/08/22 07:39 37.1 C 60 19 130/69 94 10/08/22 07:05 56 L 10/08/22 03:10 36.8 C 59 L 18 138/70 94 10/08/22 00:00 57 L 10/07/22 22:58 37.1 C 58 L 18 137/64 93 O2 Del Method 10/08/22 07:39 Room Air 10/08/22 07:05 10/08/22 03:10 Room Air 10/08/22 00:00 10/07/22 22:58 Room Air Laboratory Results 10/08/22 10/08/22 Range/Units 07:32 07:32 Sodium 141 (136-145) mmol/L Potassium 3.6 (3.5-5.1) mmol/L Chloride 109 H (98-107) mmol/L Carbon Dioxide 28 (21-32) mmol/L Anion Gap 4 (3-11) BUN 18 (6-23) mg/dl Creatinine 0.60 (0.6-1.2) mg/dl Est Cr Clr Drug Dosing 52.9 ml/min Est GFR ( Amer) 93.7 ml/min Est GFR (Non-Af Amer) 80.8 ml/min BUN/Creatinine Ratio 30.0 H (10-20) Glucose 95 (70-99(Fasting)) mg/dl Calcium 9.5 (8.5-10.1) mg/dl Magnesium 2.1 (1.7-2.4) mg/dl TSH 3.507 (0.300-4.500) uIu/ml Medications Administered Current Inpatient Medications Acetaminophen (Acetaminophen 325 Mg Tab) 650 mg PO Q4H PRN PRN Reason: Pain or Fever Stop: 11/04/22 00:43 Amlodipine Besylate (Amlodipine Besylate 5 Mg Tab) 5 mg PO DAILY JAREK Stop: 11/04/22 08:59 Last Admin: 10/08/22 08:25 Dose: 5 mg Apixaban (Apixaban 5 Mg Tablet) 5 mg PO BID JAREK Stop: 11/04/22 00:43 Last Admin: 10/08/22 08:26 Dose: 5 mg Calcium/Vitamin D (Calcium 600mg + Vit D 400 Iu Tab) 1 tab PO BID JAREK Stop: 11/04/22 08:59 Last Admin: 10/08/22 08:25 Dose: 1 tab Docusate Sodium (Docusate Sodium 100 Mg Cap) 200 mg PO DAILY JAREK Stop: 11/04/22 08:59 Last Admin: 10/08/22 08:25 Dose: 200 mg Furosemide (Furosemide 40 Mg Tab) 40 mg PO DAILY PRN PRN Reason: Fluid Retention Stop: 11/04/22 00:43 Levothyroxine Sodium (Levothyroxine Sodium 88 Mcg Tablet) 88 mcg PO DAILYBB JAREK Stop: 11/04/22 06:29 Last Admin: 10/08/22 06:23 Dose: 88 mcg Metoprolol Succinate (Metoprolol Succ 50mg Ext Rel Tab) 50 mg PO BID JAREK Stop: 11/04/22 00:43 Last Admin: 10/08/22 08:24 Dose: 50 mg Multivitamins/Minerals (Cerovite Adv Formula Tab) 1 tab PO DAILY JAREK Stop: 11/04/22 08:59 Last Admin: 10/08/22 08:24 Dose: 1 tab Nitroglycerin (Nitroglycerin Sl 0.4 Mg/Tab Tab) 0.4 mg SL UD PRN PRN Reason: Chest Pain Stop: 11/04/22 00:43 Pantoprazole Sodium (Pantoprazole 40 Mg Tab) 40 mg PO DAILY JAREK Stop: 11/04/22 08:59 Last Admin: 10/08/22 08:24 Dose: 40 mg Polyethylene Glycol (Polyethylene (Miralax) 17 Gm Pack) 17 gm PO DAILY PRN PRN Reason: Constipation Stop: 11/04/22 00:43 Potassium Chloride (Potassium Chloride Crtab 20 Meq Tabcr) 20 meq PO NOW STA Stop: 10/08/22 10:45 Rosuvastatin Calcium (Rosuvastatin Calcium 10 Mg Tab) 10 mg PO Q48H JAREK Stop: 11/04/22 08:59 Last Admin: 10/07/22 08:08 Dose: 10 mg
[2022-10-08] MEDS ORDERED: POTASSIUM CHLORIDE CRTAB 20 MEQ TABCR PO STA (10:44)
[2022-10-08] MEDS ORDERED: REGADENOSON 0.4 MG/5 ML SYR IV ONE (10:54)
--- NOTE | 2022-10-08 15:09 | Myocardial Perfusion Study ---
Date of Service October 08, [address] [facility] Myocardial Perfusion Study Report Procedure: 1. Myocardial perfusion study performed in multiple views/images 2. Lexiscan pharmacologic stress ECG Indications: 1. Shortness of breath Ordering physician: Gurinder Procedural details: For the stress portion of the study, Lexiscan 0.4 mg was intravenously administered followed by a saline flush. This was followed by 31.87 mCi of technetium 99m Cardiolite, injected at 1145 on 10/08/2022. 30 minutes following the injection, imaging of the heart was performed in multiple projections. For the rest portion of the study, 10 mCi technetium 99m Cardiolite was injected i ntravenously at 1100 on 10/08/2022. 1 hour following the injection, imaging of the heart was performed in the same projections. Lexiscan stress ECG: Resting ECG demonstrated: Normal sinus rhythm without any acute ischemic changes Maximum heart rate: 79 bpm Maximal, age-predicted heart rate: 60% Resting blood pressure: 164/72 mmHg Maximum blood pressure: 164/[address] changes: None Arrhythmia: None Symptoms: Shortness of breath Findings: Rotating raw imaging demonstrated no significant lung uptake. There is no significant motion artifact. Heart size appeared normal. Myocardial perfusion demonstrated homogeneous tracer uptake throughout the myocardium. Ejection fraction: Greater than 70% % Wall motion: Normal No significant transient ischemic dilation. Impression: 1. Normal Lexiscan nuclear stress test.
--- NOTE | 2022-10-08 15:55 | Cardiology Progress Note ---
Date of Service October 08, 2022 Assessment & Plan (1) Dyspnea on exertion: (2) Diastolic dysfunction: (3) Prolonged QT interval: (4) PAF (paroxysmal atrial fibrillation): (5) On amiodarone therapy: Plan 87-year-old female with hypertension, diastolic dysfunction and paroxysmal atrial fibrillation presents with complaints of exertional dyspnea not yet well- defined Echocardiogram demonstrates preserved LV systolic function Chest x-ray without infiltrate or edema EKG concerning for prolonged QT interval though in part due to procedural measurement Plan: Hold amiodarone with daily EKG Consider possible stress testing after QT shortens ABG with possible pulmonary screening depending on results Resume oral diuretic as ordered on a daily basis Supplement potassium 10/06/2022 QTc remains prolonged after amiodarone held Feeling well at rest We will consider possible Lexiscan nuclear stress test prior to discharge 10/07/2022 The computer reads her QT level is prolonged to 700 ms but upon further inspection I believe this is counting a significant U wave and thus falsely increased Amiodarone will obviously be discontinued. Ideally, I would like to get more beta-serene in to her at this time but given her resting bradycardia I am unable to. Ultimately, should she lapse back into A-fib she might require pacemaker placement for tachybradycardia syndrome. We will continue to follow Given her presenting symptoms of acute shortness of breath and chest discomfort I do believe ischemic evaluation is warranted so she will undergo a Lexiscan nuclear stress test in the a.m. N.p.o. after midnight 10/08/2022 QTc has corrected Lexiscan nuclear stress test was nonischemic No further cardiac test intervention necessary at this time Okay to DC to home on previous medication regimen with the exception of amiodarone being discontinued Admission and Anticipated Discharge Date Admission Date: October 05, 2022 Subjective Patient seen and examined. Chart reviewed. Telemetry reviewed. States that she feels back to baseline and is anxious for discharge. Review of Systems Review of Systems: All systems reviewed & are unremarkable except as noted in HPI & below Physical Exam Physical Exam: General: Awake, alert and oriented x 3. No acute distress. HEENT: Normocephalic, atraumatic. Pupils equal, round and reactive to light and accommodation. Extraocular muscles are intact. Anicteric sclera. Moist mucous membranes. Neck: No JVD. No bruit. Cardiovascular: Regular. Positive S-4. Normal S-1 and S-2. No S-3. 3/6 mid to late systolic ejection murmur, greatest at the right sternal border, second intercostal space with radiation to the bilateral carotids. No rubs. Pulmonary: Clear to auscultation bilaterally. No rales, rhonchi, or wheezing. Abdomen: Bowel sounds x 4, soft. No rebound, guarding or tenderness. No organomegaly. Extremities: No clubbing, cyanosis or edema. +2 pedal pulses bilaterally. Skin: Warm and dry. Results & Data ([facility]) Vital Signs (Past 12 Hours) Vital Signs Temp Pulse Pulse Resp BP Pulse Ox O2 Del Method 10/08/22 15:00 62 10/08/22 08:00 Room Air 10/08/22 07:39 37.1 C 60 19 130/69 94 Room Air 10/08/22 07:05 56 L
--- NOTE | 2022-10-08 16:26 | Discharge Summary ---
Date of Service October 08, 2022 Admission HPI Per Admitting Provider This is an 87-year-old female with past medical history significant for hyperlipidemia, hypothyroidism, paroxysmal atrial fibrillation, , paroxysmal SVT, chronic superficial gastritis with bleeding, hypertension, vitamin D deficiency, GERD, senile osteoporosis, macular degeneration, history of adenomatous colonic polyps, who presents with dyspnea on exertion and chest tightness. The patient says she has this shortness of breath going on for like one and a half weeks, but it seemed to improve. She just had a sigmoidoscopy on last Saturday because of adenomatous polyp in the past and there was no evidence of residual polyp tissue and biopsies were done. The patient states she felt well next day, but again today morning she felt very short of breath and she was scared, that is the reason she called daughter and brought in here. Daughter thinks that she has some wheezing. Here currently, she is resting comfortably, saturating okay on the room air. The patient says while resting she is okay, but while ambulating she gets some chest tightness and also shortness of breath. She has some headache now. Vision is okay. 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 No difficulty swallowing. No cough, no fevers. Today, her appetite is down. Denies any nausea or vomiting, no abdominal pain. Normal bowel and bladder movements. She gets swelling in the legs and she uses Lasix as needed. The patient has some history of anemia and GI bleed in the past and worried about that. Hemoglobin is 11.4 today. The patient's twin sister was diagnosed with asthma couple of years ago and she is worried she also could be developing asthma. Admission Exam Per Admitting Provider GENERAL: The patient is old and frail, not in acute distress. VITAL SIGNS: Temperature 36.8, pulse 56, respiratory rate 22, blood pressure 201/68, oxygen 96% on room air. HEENT: Pupils equal, round and reactive to light. Oral mucosa moist. NECK: No JVD, no neck masses. CARDIOVASCULAR: S1 and S2 heard. Regular rate and rhythm. No murmur, no gallop. RESPIRATORY SYSTEM: Normal AP diameter. No accessory muscle use. No wheezing, no crackles. ABDOMEN: Soft, bowel sounds present, nontender, no distention. CENTRAL NERVOUS SYSTEM: Alert and oriented. Speech is clear. No facial droop. Obeys simple commands. Moves extremities. EXTREMITIES: Lower extremity edema present, no erythema seen. Principal Diagnosis Dyspnea on exertion, found to have prolonged QTc Discharge Exam GENERAL: elderly frail F, not in acute distress. HEENT: NC/AT. EOMI. Pupils equal, round and reactive to light. Oral mucosa mo ist. NECK: No JVD, no neck masses. CARDIOVASCULAR: S1 and S2 heard. Regular rate and rhythm. No murmur, no gallop. RESPIRATORY:No accessory muscle use. No wheezing, no crackles. ABDOMEN: Soft, bowel sounds present, nontender, no distention. NEURO: Alert and oriented. Speech is clear. No facial droop. Obeys simple commands. Moves extremities. EXTREMITIES: minimal lower extremity edema, no erythema seen. Discharge Data Allergies Allergy/AdvReac Type Severity Reaction Status Date / Time Sulfa (Sulfonamide Allergy Intermediate Hives Verified 10/04/22 20:38 Antibiotics) sulfamethoxazole Allergy Intermediate Hives Verified 10/04/22 20:38 trimethoprim Allergy Intermediate Hives Verified 10/04/22 20:38 epinephrine Allergy Unknown ON [facility] MED Verified 10/04/22 20:38 LIST Consultations 10/04/22 20:18 ED Decision to Admit Stat 10/05/22 08:00 Consult Cardiology Routine 10/06/22 08:33 Consult Gastroenterology Routine Hospital Course (1) Prolonged QT interval: (2) Dyspnea on exertion: (1) Prolonged QT interval: (2) Dyspnea on exertion: Plan: This is an 87-year-old female who presents chest pain and dyspnea on exertion. 1. Chest tightness and dyspnea on exertion: As per the daughter, she has some wheezing, but currently no wheezing heard. Chest x-ray looks clear and the patient is worried that she might have developed asthma as her twin sister developed asthma a couple of years ago. We will rule out acute coronary syndrome with serial enzymes, echo. Monitor in the tele floor. We will give neb treatments and see if that helps. Troponin x3 negative Echo obtained LV is normal in size. There is mild concentric LVH. LV wall motion is normal. EF 60 to 65%. Diastolic dysfunction, grade 2, consistent with elevated left atrial pressure. LA is moderately dilated. There is mild mitral regurg. There is trace tricuspid regurg. RV systolic pressure is elevated at 30 to 40 mmHg. prolonged QT Cardiology was consulted EKG w/ prolonged QT interval Hold amiodarone with daily EKGs Replete electrolytes as needed 10/08 underwent stress test today. Per cardiology- Armando nuclear stress test was nonischemic. No further cardiac test intervention necessary at this time. Okay to DC to home on previous medication regimen with the exception of amiodarone being discontinued. Currently she is feeling well. Will discharge home, and will stop amiodarone and her DC medication list. 2. History of paroxysmal atrial fibrillation/flutter: On chronic Eliquis anticoagulation, amiodarone, and metoprolol succinate. Stopped amio, as above. 3. Questionable GI bleed notified by RN that the patient had bright red blood per rectum FOBT positive Patient had recent history of sigmoidoscopy, discussed with GI H&H stable Per GI, not likely bleed and okay to resume diet Pt is having soft brown stool Cont. to monitor 4. Hyperlipidemia: On statin. 5. Chronic venous insufficiency: On Lasix as needed. 6. Hypothyroidism: On Synthroid. will check tsh 7. Hypertension: On amlodipine and metoprolol succinate. Will monitor the blood pressure. 8. Anemia. Hb 11.7 on admission. Has been ~10 since admission. Hemoccult positive, discussed w/ GI as above. Total Time Total Time Spent Total Time Spent (In Minutes): 40 Discharge Plan Discharge Items Patient Disposition: Home - Self-Care Reason For Visit: RODRÍGUEZ AND CHEST TIGHTNESS Discharge Diagnosis: Dyspnea on exertion, found to have prolonged QTc Activity: Per Instructions section Non-emergency contact: Primary Care Provider and Mapping Editor Call non-emergency contact if: you have any medication questions and your symptoms worsen Follow-up/Referrals: Edward Llanes MD [Primary Care Provider] - Diet: Heart Healthy Addtl Attending Provider Instructions: Follow-up with your primary care doctor within 1 week. Stop taking amiodarone. Pending Studies at Discharge: No Stand-Alone Forms: My [facility], Smoking Cessation Medications and DC Order Prescriptions: Continued metoprolol succinate 50 mg Tablet Extended Release 24 Hr 50 mg PO BID Qty: 60 3RF Eliquis 5 mg Tablet 5 mg PO BID Qty: 60 1RF calcium carbonate-vitamin D3 [Os-Ethan 500 + D3] 500 mg(1,250mg) -200 unit Tablet 1 tab PO BID Patient Comments: patient list states dose is 25mcg. furosemide [Lasix] 40 mg Tablet 40 mg PO DAILY PRN (Reason: Fluid Retention) rosuvastatin [Crestor] 10 mg Tablet 10 mg PO Q2D Patient Comments: every other day docusate sodium [Colace] 100 mg Capsule 200 mg PO DAILY omeprazole 20 mg Capsule,Delayed Release(Dr/Ec) 20 mg PO DAILY amlodipine 5 mg Tablet 5 mg PO DAILY acetaminophen [Tylenol Extra Strength] 500 mg Tablet 1,000 mg PO Q6H PRN (Reason: PAIN/FEVER) levothyroxine 88 mcg Tablet 88 mcg PO DAILYBB PreserVision AREDS-2 250-90-40-1 mg Capsule 1 tab PO BID Discontinued amiodarone 200 mg tablet 200 mg PO DAILY Discharge Orders: Discharge Order (Routine); Ordered 10/08/22 Ordered By: Dev Rae Admission Data Admit Date/Time: 10/05/22 17:25 Attending Provider: Dev Rae Admit Provider: Fredy Deleon Primary Care Provider: Edward Llanes Other Providers: Fredy Deleon ; Issa Fairchild ; Stanislaw Stephens ; Mayur Castillo ; Pedro Lopez ; Julio C Pennington ; Carter Nixon ; Avis Rodriguez ; Juana Montes ; Didi Stephenson ; Jeff Dukes ; Alex Couch Jr Other Interventions: Discharge Summary Assessment (RN) Last Done: 10/08/22 16:25
--- NOTE | 2022-10-11 11:48 | Coding Query ---
CODING QUERY To promote full compliance with coding requirements relating to patient care, provider participation is requested in all cases of academic director uncertainty. Please assist us with the question(s) below: Coding Question(s): Please specify below, in your clinical opinion, the most likely source of Dyspnea on Exertion: ( ) most likely possible Asthma ( ) most likely acute coronary syndrome ( x) most likely Other: Please Specify____prolonged QT in the setting of amiodarone ( ) Unknown Physician's Response(s): Thank you Iliana Mcnair Principal Diagnosis: "that condition established after study, to be chiefly responsible for occasioning the admission of the patient to the hospital for care." Co-Existing Principal Diagnosis: "when two or more diagnoses equally meet the criteria for principal diagnosis as determined by the circumstances of admission, diagnostic work up, and/or therapy provided, and the Alphabetic Index, Tabular List, or another coding guideline does not provide sequencing direction, any one of the diagnoses may be sequenced first." "When the physician has documented what appears to be a current diagnosis in the body of the record, but has not included the diagnosis in the final diagnostic statement, the physician should be asked whether the diagnosis should be added." ([facility] 2 QTR90. p3-4) [facility]
--- NOTE | 2022-10-11 11:51 | Coding Query ---
CODING QUERY To promote full compliance with coding requirements relating to patient care, provider participation is requested in all cases of editorial cartoonist uncertainty. Please assist us with the question(s) below: Coding Question(s): There is documentation of, " Questionable GI bleed notified by RN that the patient had bright red blood per rectum FOBT positive Patient had recent history of sigmoidoscopy, discussed with GI H&H stable Per GI, not likely bleed and okay to resume diet Pt is having soft brown stool Cont. to monitor". It is not clear if questionable GI bleed was ruled-out completely or if it was still questionable and monitored through the admission. Please clarify below, in your clinical opinion, regarding questionable GI bleed: ( X) Questionable GI Bleed, monitored through the admission ( ) Questionable GI Bleed was Ruled-Out ( ) Other: Please Specify Physician's Response(s): Thank you Iliana Mcnair Principal Diagnosis: "that condition established after study, to be chiefly responsible for occasioning the admission of the patient to the hospital for care." Co-Existing Principal Diagnosis: "when two or more diagnoses equally meet the criteria for principal diagnosis as determined by the circumstances of admission, diagnostic work up, and/or therapy provided, and the Alphabetic Index, Tabular List, or another coding guideline does not provide sequencing direction, any one of the diagnoses may be sequenced first." "When the physician has documented what appears to be a current diagnosis in the body of the record, but has not included the diagnosis in the final diagnostic statement, the physician should be asked whether the diagnosis should be added." ([facility] 2 QTR90. p3-4) [facility]
== END 2022-10-08 17:39 | disposition home or self-care (01) | DRG 315 ==
LOC: ED 16:47 → 2N 16:47